=== PATIENT | male | born 1955 | race Two or more races ===

== ENCOUNTER 2021-01-16 15:28 | Emergency (ER) | payer OTHER, SELFPAY | END 2021-01-16 20:28 | disposition left against medical advice (07) | PROVIDERS: Emergency Provider Emergency Medicine; PCP Internal Medicine | DX: R10.9 Unspecified abdominal pain (principal) ==

== ENCOUNTER 2021-01-20 10:11 | Emergency (ER) | payer OTHER, SELFPAY ==
--- NOTE | ~2021-01-20 | CT_ITS ---
EXAMINATION: CT ABDOMEN AND PELVIS WITHOUT CONTRAST CLINICAL INFORMATION: Right flank and right lower quadrant pain. Evaluate for appendicitis or kidney stone. COMPARISON: None TECHNIQUE: Multidetector volumetric imaging was performed from the superior aspect of the liver through the pubic symphysis. Sagittal and coronal reformatted images were obtained on the technologist's workstation. This CT examination was performed using dose optimization techniques as appropriate, variously including the following: *Automated exposure control *Adjustment of mA and/or kV according to patient size (this includes techniques or standardized protocols for targeted exams where dose is matched to indication/reason for exam; i.e. extremities or head) *Use of iterative reconstruction technique DLP: 526 mGy-cm FINDINGS: LUNG BASES: Normal. No pulmonary consolidation or pleural effusion at either lung base. LIVER: The liver has normal size, shape, and attenuation. No evidence of liver mass. GALLBLADDER AND BILIARY TREE: Gallbladder is surgically absent. Common bile duct measures up to 0.8 cm diameter, which can be a normal observation in the setting of prior cholecystectomy. There are no calcified stones within the common duct. PANCREAS: Normal. No edema, pancreatic ductal dilatation or mass. SPLEEN: Normal. ADRENAL GLANDS: Normal. KIDNEYS AND URETERS: The kidneys have normal size and cortical thickness. No solid mass or perinephric fluid collection. No urolithiasis or hydroureteronephrosis. BLADDER: The urinary bladder is nearly completely empty. No bladder calculi. The bladder base is compressed by the prominent prostate gland. BOWEL AND PERITONEUM: Stomach is unremarkable. No dilated loops of bowel. The appendix is normal. Multiple diverticula of the colon. No overt bowel wall thickening or mesenteric fat stranding. No ascites or pneumoperitoneum. ABDOMINAL WALL: There is minimal protrusion of fat into the umbilicus. No significant findings in the abdominal wall. VASCULATURE: Unremarkable. LYMPH NODES: No pathologic sized lymph nodes in the abdomen or pelvis. No inguinal lymphadenopathy. PELVIC VISCERA: Large prostate gland measures approximately 6 x 4.5 x 5 cm. No pelvic free fluid. SKELETAL: Multilevel degenerative arthropathy of the visualized thoracal lumbar spine. Severe facet arthropathy of L5-S1 is associated with grade 1 anterolisthesis of L5 on S1. The right and left gluteus muscles are atrophied and partially replaced by fat. No soft tissue mass. CT/CT abdomen pelvis wo con IMPRESSION: * No acute imaging abnormality. No evidence of renal calculi or hydronephrosis. * The appendix is normal. No inflammatory changes or obstruction along the gastrointestinal tract. There is diverticulosis of the colon without evidence of diverticulitis. * Prostatomegaly is noted.
[2021-01-20 11:29] VITALS: BP 150/80; PULSE 78; RESP 16; TEMP 36.2; O2SAT 98; BMI 32.9
[2021-01-20 12:20] LABS: MANUAL DIFF FLAG NO
[2021-01-20 12:32] LABS: Basophils Percent Auto 0.2 % (0-2); Eosinophils Absolute Auto 0.3 X10*3/uL (0.0-0.4); Eosinophils Percent Auto 3.1 % (0-4); Hemoglobin 14.2 g/dl (14.0-18.0); Imm Gran Abs Auto 0.03 X10*3/uL (0.00-0.03); Imm Gran Pct Auto 0.4 % (0.0-0.4); Lymphocytes Absolute Auto 1.7 X10*3/uL (1.2-4.9); Lymphocytes Percent Auto 21.6 % (20-40); Mean Corpuscular HGB Conc 32.3 g/dl (31.0-36.0); Mean Corpuscular Hemoglobin 29.3 pg (27.0-33.0); Mean Corpuscular Volume 90.9 fL (80-98); Monocytes Absolute Auto 0.5 X10*3/uL (0.1-1.2); Monocytes Percent Auto 6.1 % (2-11); Neutrophils Absolute Auto 5.5 X10*3/uL (2.0-8.3); Neutrophils Percent Auto 68.6 % (45-73); Platelet Count 256 X10*3/uL (160-400); Red Blood Count 4.84 X10*6/uL (4.60-5.80); Red Cell Distribution Width 13.4 % (11.0-16.0); White Blood Count 8.1 X10*3/uL (4.8-10.8)
[2021-01-20 12:37] LABS: Alanine Aminotransferase 28 U/L (0-40); Albumin Level 4.2 g/dL (3.5-5.0); Alkaline Phosphatase 135 U/L (39-117); Anion Gap 11 (12-20); Aspartate Amino Transferase 21 U/L (5-37); Bilirubin Direct 0.2 mg/dL (0.0-0.5); Bilirubin Total 0.4 mg/dL (0.0-1.0); Blood Urea Nitrogen 18 mg/dL (9-16); Calcium 9.3 mg/dL (8.4-10.2); Carbon Dioxide 27 mmol/L (22-29); Chloride 109 mmol/L (96-108); Creatinine Clr Calc Pharmacy 101.3; Estimated Glomerular Filt Rate > 60; Glucose Random 95 mg/dL (60-115); Lipase 28 U/L (8-78); Potassium 4.6 mmol/L (3.3-5.1); Sodium 142 mmol/L (135-145); Total Protein 7.7 g/dL (6.5-8.0)
[2021-01-20 14:02] VITALS: BP 173/87; PULSE 73; RESP 16; TEMP 36.7; O2SAT 98
[2021-01-20 14:44] LABS: Appearance Urine CLEAR; Color Urine YELLOW; Glucose Urine UA NEG (NEG); Leukocyte Esterase Urine NEG (NEG); Nitrite Urine NEG (NEG); PH 5.5 (5.0-8.0); Specific Gravity - Urine >= 1.030 (1.005-1.025); UACC Culture Trigger NO; Urine Blood 1+ (NEG); Urine Ketones NEG (NEG); Urine Protein NEG (NEG-TRACE)
[2021-01-20 14:51] LABS: Mucus Urine 2+ /LPF; Squamous Epithelial Cell Urine TRACE /LPF
[2021-01-20 14:52] LABS: UACC CULT NO
--- NOTE | 2021-01-20 15:25 | ED.ABDPAIN ---
HPI - Abdominal Pain General Chief Complaint: Abdominal Pain Stated Complaint: flank pain Time Seen by Provider: 01/20/21 14:14 Source: patient and family ( at bedside) Mode of arrival: ambulatory Limitations: language barrier (Is [place] Islander-speaking) History of Present Illness HPI narrative: 65-year-old male with a past medical history of hepatitis C, cholecystectomy and colon surgery no other significant past medical history who is [place]er-speaking presenting to the ED with complaints of right flank/right lower quadrant abdominal pain that radiates to his right mid back for the past 1-2 weeks intermittently. He reports the pain improves with rest. It is worse with certain types of movement. He reports the pain comes on suddenly then resolved on its own. 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 He denies any fevers, chills, dizziness, headache, chest pain or shortness of breath, palpitations, dyspnea on exertion, orthopnea, nausea/vomiting/diarrhea/constipation, black or bloody stools, hematuria, abnormal penile discharge, recent trauma, recent falls, urinary/bowel incontinence or retention, history of cancer, IV drug use or any other symptoms complaints or concerns at this time. MD elicited complaint: abdominal pain and flank pain Pertinent past history: other (See above) Onset (ago): week(s) (Intermittent over the past 1-2 weeks) Pain Consistency: intermittent Location: RLQ and R flank Severity: mild Quality: aching Radiation: back Exacerbating factors: movement Relieving factors: rest Associated symptoms: denies other symptoms Related Data Previous Rx's Medication Instructions Recorded acetaminophen 500 mg tablet 1,000 mg PO QID PRN #14 tab 01/20/21 (Tylenol Extra Strength) cyclobenzaprine 10 mg tablet 10 mg PO Q8H PRN #14 tab 01/20/21 ibuprofen 800 mg tablet 800 mg PO Q8H PRN #14 tab 01/20/21 lidocaine HCl 4 % topical cream 1 appl TOPICAL BID PRN #120 g 01/20/21 (Aspercreme (lidocaine HCl)) Allergies Allergy/AdvReac Type Severity Reaction Status Date / Time No Known Allergies Allergy Verified 01/20/21 11:31 Review of Systems Review of Systems Constitutional : No trauma, No Weight loss, No Fever, No Chills, ENT/Mouth : No Hearing loss, No Ear Pain, No Nasal Congestion, No Sinus Pain, No Hoarseness, No sore throat, No Rhinorrhea, No Swallowing Difficulty Cardiovascular : No Chest Pain, No SOB Respiratory : No Cough, No Dyspnea Gastrointestinal : + abd pain/flank pain radiating to right mid back, No Nausea, No Vomiting, No Diarrhea, No Hematochezia, No Melena Genitourinary : No Dysuria, No Urinary Frequency, No Hematuria, No Urinary or Bowel Incontinence/retention Musculoskeletal : + Back pain, No neck pain, No joint stiffness, No joint swelling Skin : No Skin Lesions, No rash or signs of infection Neuro : No Weakness, No radiation, No Numbness, No Paresthesias, No headache, no loss of bowel or bladder incontinence, no saddle anesthesia, Focal weakness, No radiation Denies history of IV drug usage. Yes all other systems are reviewed and are negative Physical Exam Vital Signs: Vital Signs: Last Vital Signs Temp 98.0 F 01/20/21 14:02 Pulse 73 01/20/21 14:02 Resp 16 01/20/21 14:02 BP 173/87 H 01/20/21 14:02 Pulse Ox 98 01/20/21 14:02 Body Mass Index 32.9 vital signs have been reviewed as normal and appeared to be correct. Blood pressure hypertensive 150/80. Heart rate normal. Respiration rate normal. Temperature normal. Oxygen saturation normal. Appearance: Alert. Oriented X3. No acute distress. Head: Normal external exam. Normocephalic. Eyes: PERRLA. EOMI. Conjunctiva and sclera normal. Eyelids normal. ENT: Pharynx normal. Uvula midline. Moist mucous membranes. Neck: Normal inspection. Neck supple. FROM. No adenopathy. No meningeal signs. CVS: Normal heart rate and rhythm. Heart sound normal. No murmurs noted. Pulses normal throughout. Respiratory: No respiratory distress. Painless inspiration. Breath sounds normal. No wheezes/rales/rhonchi noted. Chest nontender. No accessory muscle usage noted or decreased air movement noted. Abdomen: Soft and mild tenderness up patient to right flank/right lower quadrant. Nondistended. No guarding. No rigidity. Bowel sounds normal in all 4 quadrants. No distention noted. No organomegaly noted. No visible injury noted. No rebound tenderness. Negative Rovsing sign. Negative obturator's sign. Negative psoas sign. Negative Milligan sign. Back: No CVA tenderness. Full range of motion noted. Skin: Skin warm and dry. Normal skin color. Normal skin turgor. No rashes/lesions/lacerations noted. Extremities: Extremities exhibit normal range of motion. Extremities nontender. Neuro: Oriented X 3. No motor deficit. No sensory deficit. Reflexes normal. Normal steady gait. Course Course Course Narrative: 14:25pm - 65-year-old male with a past medical history of hepatitis C, cholecystectomy and colon surgery no other significant past medical history who is [place]er-speaking presenting to the ED with complaints of right flank/right lower quadrant abdominal pain that radiates to his right mid back for the past 1-2 weeks intermittently. He reports the pain improves with rest. It is worse with certain types of movement. He reports the pain comes on suddenly then resolved on its own. 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 Plan: Labs obtained in triage and patient's labs are reviewed he is noted to have an alkaline phosphate of 135 otherwise all other labs are within normal limits. Therefore at this time will obtain a UA and a CT scan abdomen pelvis without IV contrast to evaluate for possible appendicitis versus kidney stones and re-evaluate. Patient declining anything for pain at this time. Reevaluation(s) Reevaluation #1: - CT scan abdomen pelvis negative for appendicitis or kidney stones or hydronephrosis. Patient is noted to have diverticulitis of the colon without evidence of diverticulitis. He has an enlarged prostate otherwise no other acute processes. 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 Will DC home with symptomatic treatment instructions return if any new or worsening symptoms follow-up with primary care provider. Patient understands agrees with this plan. Time: 15:48 MDM - Abdominal Pain Medical Records Attestation: I reviewed the patient's medical records. Lab Data Attestation: I reviewed the patient's lab results. Result diagrams: 01/20/21 12:15 01/20/21 12:15 Labs: Lab Results 01/20/21 01/20/21 01/20/21 Range/Units 12:15 12:15 14:39 WBC 8.1 (4.8-10.8) X10*3/uL RBC 4.84 (4.60-5.80) X10*6/uL Hgb 14.2 (14.0-18.0) g/dl Hct 44.0 (42-52) % MCV 90.9 (80-98) fL MCH 29.3 (27.0-33.0) pg MCHC 32.3 (31.0-36.0) g/dl RDW 13.4 (11.0-16.0) % Plt Count 256 (160-400) X10*3/uL MPV 11.0 (9.4-12.4) fL Immature Gran % (Auto) 0.4 (0.0-0.4) % Neut % (Auto) 68.6 (45-73) % Lymph % (Auto) 21.6 (20-40) % [place] % (Auto) 6.1 (2-11) % Eos % (Auto) 3.1 (0-4) % Baso % (Auto) 0.2 (0-2) % Lymph # (Auto) 1.7 (1.2-4.9) X10*3/uL [place] # (Auto) 0.5 (0.1-1.2) X10*3/uL Eos # (Auto) 0.3 (0.0-0.4) X10*3/uL Baso # (Auto) 0.0 (0.0-0.2) X10*3/uL Abs Immat Gran (auto) 0.03 (0.00-0.03) X10*3/uL Absolute Neuts (auto) 5.5 (2.0-8.3) X10*3/uL Absolute Nucleated RBC 0.000 (0.0-0.012) X10*3/uL Nucleated RBC % (auto) 0.0 (0.0-0.2) /100WBC Sodium 142 (135-145) mmol/L Potassium 4.6 (3.3-5.1) mmol/L Chloride 109 H (96-108) mmol/L Carbon Dioxide 27 (22-29) mmol/L Anion Gap 11 L (12-20) BUN 18 H (9-16) mg/dL Creatinine 0.69 (0.5-1.4) mg/dL Estim Creat Clear Calc 101.3 Estimated GFR > 60 Random Glucose 95 (60-115) mg/dL Calcium 9.3 (8.4-10.2) mg/dL Total Bilirubin 0.4 (0.0-1.0) mg/dL Direct Bilirubin 0.2 (0.0-0.5) mg/dL AST 21 (5-37) U/L ALT 28 (0-40) U/L Alkaline Phosphatase 135 H (39-117) U/L Total Protein 7.7 (6.5-8.0) g/dL Albumin 4.2 (3.5-5.0) g/dL Lipase 28 (8-78) U/L Urine Color YELLOW Urine Appearance CLEAR Urine pH 5.5 (5.0-8.0) Ur Specific [place] >= 1.030 H (1.005-1.025) Urine Protein NEG (NEG-TRACE) MG/DL Urine Glucose (UA) NEG (NEG) MG/DL Urine Ketones NEG (NEG) MG/DL Urine Blood 1+ H (NEG) Urine Nitrite NEG (NEG) Ur Leukocyte Esterase NEG (NEG) Urine RBC 1-4 (0) /HPF Urine WBC 1-4 (0-4) /HPF Ur Squamous Epith Cells TRACE /LPF Urine Bacteria NONE /LPF Urine Mucus 2+ /LPF Imaging Data CT scan abdomen pelvis with out IV contrast: Attestation: I personally reviewed and interpreted this imaging study as follows: Radiologist's impression: FINDINGS: LUNG BASES: Normal. No pulmonary consolidation or pleural effusion at either lung base.? LIVER: The liver has normal size, shape, and attenuation.? No evidence of liver mass. GALLBLADDER AND BILIARY TREE: Gallbladder is surgically absent. Common bile duct measures up to 0.8 cm diameter, which can be a normal observation in the setting of prior cholecystectomy. There are no calcified stones within the common duct.? PANCREAS: Normal. No edema, pancreatic ductal dilatation or mass.? SPLEEN: Normal.? ADRENAL GLANDS: Normal.? KIDNEYS AND URETERS: The kidneys have normal size and cortical thickness. No solid mass or perinephric fluid collection. No urolithiasis or hydroureteronephrosis. BLADDER:? The urinary bladder is nearly completely empty. No bladder calculi. The bladder base is compressed by the prominent prostate gland. BOWEL AND PERITONEUM: Stomach is unremarkable. No dilated loops of bowel. The appendix is normal. Multiple diverticula of the colon. No overt bowel wall thickening or mesenteric fat stranding. No ascites or pneumoperitoneum. ABDOMINAL WALL: There is minimal protrusion of fat into the umbilicus. No significant findings in the abdominal wall.? VASCULATURE: Unremarkable. LYMPH NODES: No pathologic sized lymph nodes in the abdomen or pelvis. No inguinal lymphadenopathy. PELVIC VISCERA: Large prostate gland measures approximately 6 x 4.5 x 5 cm. No pelvic free fluid. SKELETAL: Multilevel degenerative arthropathy of the visualized thoracal lumbar spine. Severe facet arthropathy of L5-S1 is associated with grade 1 anterolisthesis of L5 on S1. The right and left gluteus muscles are atrophied and partially replaced by fat. No soft tissue mass. CT/CT abdomen pelvis wo con IMPRESSION: *? No acute imaging abnormality. No evidence of renal calculi or hydronephrosis. *? The appendix is normal. No inflammatory changes or obstruction along the gastrointestinal tract. There is diverticulosis of the colon without evidence of diverticulitis. *? Prostatomegaly is noted. ? Discharge Plan Discharge Clinical Impression: Muscle spasm of back, Spasm of abdominal muscles Patient Disposition: Home, Self-Care Instructions: Muscle Spasm (ED) Prescriptions: New lidocaine HCl [Aspercreme (lidocaine HCl)] 4 % cream 1 appl topical BID PRN (Reason: pain) Qty: 120 RF: 0 cyclobenzaprine 10 mg tablet 10 mg PO Q8H PRN (Reason: Muscle spasm) Qty: 14 RF: 0 ibuprofen 800 mg tablet 800 mg PO Q8H PRN (Reason: pain) Qty: 14 RF: 0 acetaminophen [Tylenol Extra Strength] 500 mg tablet 1,000 mg PO QID PRN (Reason: fever or pain) Qty: 14 RF: 0 Referrals: Javier Malloy PA-C [Primary Care Provider] - 2 days Stand Alone Forms: Work/School Release Print Language: [place] [facility] Past Medical History Attestation statement: The following information was validated with the patient. Social History Social History Smoked in Last 30 Days: No Use of substances other than those prescribed or required for medical reasons: No Advance Directives: No
== END 2021-01-20 15:59 | disposition home or self-care (01) ==
PROVIDERS: Emergency Provider Emergency Medicine Emergency Medical Services; PCP Physician Assistant
DX: M62.830 Muscle spasm of back (principal); M62.838 Other muscle spasm; M47.817 Spondylosis without myelopathy or radiculopathy, lumbosacral region
CPT/HCPCS: 36415; 74176; 80048; 80076; 81001; 83690; 85025; 99284

== ENCOUNTER 2021-05-15 15:38 | Outpatient (REF) | payer OTHER, SELFPAY ==
[2021-05-15 16:55] LABS: Alanine Aminotransferase 18 U/L (0-40); Alkaline Phosphatase 137 U/L (39-117); Anion Gap 10 (12-20); Aspartate Amino Transferase 20 U/L (5-37); Bilirubin Total 0.4 mg/dL (0.0-1.0); Blood Urea Nitrogen 12 mg/dL (9-16); Calcium 8.8 mg/dL (8.4-10.2); Carbon Dioxide 28 mmol/L (22-29); Chloride 110 mmol/L (96-108); Cholesterol 162 mg/dL; Estimated Glomerular Filt Rate > 60; Glucose Fasting 88 mg/dL (60-99); HDL Cholesterol 48 mg/dL; LDL Cholesterol Calculated 90 mg/dl; Sodium 144 mmol/L (135-145); Total Protein 7.4 g/dL (6.5-8.0); Triglycerides 123 mg/dL
[2021-05-15 17:02] LABS: Estimated Average Glucose 128 mg/dL; Hemoglobin A1c % 6.1 %
[2021-05-15 17:16] LABS: Prostate Specific Antigen Scr 3.82 ng/mL (<0.05-4.0)
[2021-05-16 04:23] LABS: HBc Num1 0.09 S/CO (0.00-0.79); Hepatitis B Core Antibody Nonreactive (Nonreactive); ~Hepatitis B Surface Antibody NONREACTIVE (Nonreactive)
[2021-05-16 04:27] LABS: HBsAGNum1 0.21 S/CO (0.00-0.99); Hepatitis B Surface Antigen Negative (Negative); ~HepC Num1 0.13 S/CO (0.00-0.79); ~Hepatitis C Antibody Nonreactive (Nonreactive)
[2021-05-20 07:56] LABS: HCV RNA PCR Qn <1.18 log IU/mL; HCV RNA PCR Qn <15 IU/mL
== END 2021-05-15 15:39 | disposition home or self-care (01) ==
LOC: HO.LAB 15:38
PROVIDERS: PCP Physician Assistant; Visit Provider Physician Assistant
DX: B19.20 Unspecified viral hepatitis C without hepatic coma (principal); Z13.1 Encounter for screening for diabetes mellitus; Z11.3 Encounter for screening for infections with a predominantly sexual mode of transmission; Z12.5 Encounter for screening for malignant neoplasm of prostate; Z13.29 Encounter for screening for other suspected endocrine disorder; Z13.220 Encounter for screening for lipoid disorders
CPT/HCPCS: 36415; 80053; 80061; 83036; 84153; 84443; 86704; 86706; 86803; 87340; 87522; 87902

== ENCOUNTER 2021-08-20 16:42 | Outpatient (REF) | payer OTHER, SELFPAY ==
--- NOTE | ~2021-08-20 | XR_ITS ---
EXAMINATION: XR LUMBOSACRAL SPINE CLINICAL INFORMATION: Low back pain. COMPARISON: None TECHNIQUE: Three views of the lumbosacral spine. FINDINGS: There is sacralization of the L5 vertebra with partial ankylosis of a prominent right-sided L5 transverse process. No acute fractures identified. There is a mild grade 1 spondylolisthesis L4-L5 with bilateral facet arthropathy. There is disc space narrowing seen throughout the lumbar spine. Marginal osteophytes are seen at multiple levels with ankylosis of L1-L2. No acute fractures identified. No definite spondylolysis is seen. XR/XR lumbar spine 2-3V IMPRESSION: No acute fracture or spondylolysis of the lumbar spine. Multilevel degenerative disc disease as described. Sacralization of L5 with prominent right transverse process articulating with the right iliac crest and superior sacroiliac joint. 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
== END 2021-08-20 16:43 | disposition home or self-care (01) ==
LOC: HO.XRAY 16:42
PROVIDERS: PCP Physician Assistant; Visit Provider Physician Assistant
DX: M54.50 Low back pain, unspecified (principal)
CPT/HCPCS: 72100

== ENCOUNTER 2021-09-04 15:00 | Outpatient (RCR) | payer OTHER, SELFPAY ==
[2021-08-14 15:08] VITALS: BP 135/85; PULSE 82
--- NOTE | 2021-08-14 16:49 | MHC.PT.EP ---
[facility] [place] Office [place] Office [place] Office [address] [phone] F: [phone] F: [phone] F: [phone] F: [phone] Physical Therapy Plan of Care Date of Evaluation: Date of Surgery: Diagnosis: intervertebral disc disorder. 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 Pt is deemed an appropriate candidate to receive skilled PT in order to address his physical limitations to improve his functional ability. Frequency and Duration: The patient will be seen 2 x/ wk x 5 wks. Short Term Goals: Initiate HEP. Pt will report < 4/10 pain at the end of a work day; initial: 6/10. Care Home Goals: I with HEP. Pt will be able to walk long distances with managed Sx. Pt will report pain prevents me from standing > 1 hour ; initial: I avoid standing because it increases my pain right away. Improve core strength to > good. Treatment Plan: Modalities to reduce pain, spasms and effusion. Manual therapy to restore motion and function. Therapeutic exercise to improve strength and flexibility. Neuromuscular re-education for posture and balance. Therapeutic activities to return to functional activities of daily living. Electronically signed by: Matthew Alejandra PT. Please sign and return to therapist. Thank you for your referral.
--- NOTE | 2021-09-26 14:52 | MHC.PT.DC ---
[facility] [place] Office [place] Office [place] Office [address] Evangelista [address] [phone] F: [phone] F: [phone] F: [phone] F: [phone] Physical Therapy Discharge Report Diagnosis: intervertebral disc disorder. Date of Surgery: Date of Evaluation: 08/14/21 Date of Discharge: 09/26/21 Treatments to Date: 5 Cancellations to Date: No Shows to Date: 3 Discharge Status: Visit Non-compliance Discharge Summary: Pt had made improvement though logged 3 no-show appointments and is DC'd per attendance policy. Electronically signed by: Matthew Alejandra PT. Please sign and return to therapist. Thank you for your referral.
== END 2021-09-26 14:51 | disposition home or self-care (01) ==
LOC: HO.PTCHIC 15:00
PROVIDERS: PCP Physician Assistant; Visit Provider Physician Assistant
DX: M54.50 Low back pain, unspecified (principal); M51.9 Unspecified thoracic, thoracolumbar and lumbosacral intervertebral disc disorder
CPT/HCPCS: 97014; 97110; 97161

== ENCOUNTER 2021-09-07 09:36 | Outpatient (REF) | payer OTHER, SELFPAY ==
[2021-09-07 11:22] LABS: Estimated Average Glucose 126 mg/dL
[2021-09-07 11:41] LABS: Alanine Aminotransferase 43 U/L (0-40); Albumin Level 3.8 g/dL (3.5-5.0); Alkaline Phosphatase 151 U/L (39-117); Anion Gap 13 (12-20); Aspartate Amino Transferase 35 U/L (5-37); Bilirubin Total 0.4 mg/dL (0.0-1.0); Blood Urea Nitrogen 16 mg/dL (9-16); Calcium 8.9 mg/dL (8.4-10.2); Carbon Dioxide 22 mmol/L (22-29); Chloride 110 mmol/L (96-108); Estimated Glomerular Filt Rate > 60; Glucose Fasting 92 mg/dL (60-99); Potassium 5.2 mmol/L (3.3-5.1); Sodium 140 mmol/L (135-145); Total Protein 7.5 g/dL (6.5-8.0)
[2021-09-07 12:03] LABS: TSH reflex Free T4 5.29 uIU/mL (0.32-4.0)
[2021-09-07 12:52] LABS: Free T4 (Free Thyroxine) 0.76 ng/dL (0.71-1.85)
[2021-09-10 15:11] LABS: HCV RNA PCR Qn <1.18 NOT DETECTED Log IU/mL (NOT DETECTED); HCV RNA PCR Qn <15 NOT DETECTED IU/mL (NOT DETECTED)
== END 2021-09-07 09:37 | disposition home or self-care (01) ==
LOC: HO.LAB 09:36
PROVIDERS: PCP Physician Assistant; Visit Provider Physician Assistant
DX: R73.09 Other abnormal glucose (principal)
CPT/HCPCS: 36415; 80053; 83036; 84439; 84443; 87522; 87902

== ENCOUNTER 2022-01-25 10:44 | Outpatient (REF) | payer OTHER, SELFPAY ==
[2022-01-25 11:24] LABS: Hematocrit 40.9 % (42.0-52.0); Hemoglobin 13.3 g/dl (14.0-18.0); Mean Corpuscular HGB Conc 32.5 g/dl (31.0-36.0); Mean Corpuscular Hemoglobin 28.9 pg (27.0-33.0); Mean Corpuscular Volume 88.9 fL (80.0-98.0); Mean Platelet Volume 11.2 fL (9.4-12.4); Platelet Count 272 X10*3/uL (160-400); Red Cell Distribution Width 13.8 % (11.0-16.0); White Blood Count 6.1 X10*3/uL (4.8-10.8)
[2022-01-25 11:42] LABS: Anion Gap 13 (12-20); Blood Urea Nitrogen 16 mg/dL (9-16); Calcium 8.6 mg/dL (8.4-10.2); Carbon Dioxide 24 mmol/L (22-29); Chloride 109 mmol/L (96-108); Estimated Glomerular Filt Rate > 60; Glucose Random 102 mg/dL (60-115); Potassium 3.8 mmol/L (3.3-5.1); Sodium 142 mmol/L (135-145)
== END 2022-01-25 10:45 | disposition home or self-care (01) ==
LOC: HO.LAB 10:44
PROVIDERS: PCP Physician Assistant; Visit Provider Nurse Practitioner Family
DX: R26.89 Other abnormalities of gait and mobility (principal)
CPT/HCPCS: 36415; 80048; 85027

== ENCOUNTER 2022-02-21 16:44 | Outpatient (REF) | payer OTHER, SELFPAY ==
[2022-02-21 17:47] LABS: Iron 66 mcg/dL (45-160); Percent Iron Saturation 20 % (15-50); Total Iron Binding Capacity 330 mcg/dL (228-428); Unsaturated Iron Binding 264 ug/dL
[2022-02-21 18:03] LABS: TSH reflex Free T4 4.81 uIU/mL (0.32-4.0)
== END 2022-02-21 16:45 | disposition home or self-care (01) ==
LOC: HO.LAB 16:44
PROVIDERS: PCP Physician Assistant; Visit Provider Nurse Practitioner Family
DX: B19.20 Unspecified viral hepatitis C without hepatic coma (principal); R79.89 Other specified abnormal findings of blood chemistry; D64.9 Anemia, unspecified
CPT/HCPCS: 36415; 83540; 84439; 84443; 87522; 87902

== ENCOUNTER 2023-09-17 14:58 | Outpatient (AMB) | payer MEDICAID, SELFPAY ==
--- NOTE | 2023-09-17 15:01 | MHC.PC.OV ---
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 Accompanied by: Daughter Allergies No Known Allergies Allergy (Verified 09/17/23 15:14) Medication List - Last Reconciled 09/17/23 by Javier Malloy PA-C acetaminophen (Tylenol Extra Strength) 1,000 mg (2 x 500 mg) PO QID PRN ibuprofen 800 mg PO Q8H levothyroxine 25 mcg PO DAILY 90 days lidocaine HCl 4% (Aspercreme (lidocaine HCl)) 1 appl topical BID PRN Tobacco use date assessed: 09/17/23 Fall risk assessment: No Falls in past year Last assessed Fall Risk: 09/17/23 Dental Screening Dental Screen Date: 09/17/23 Did you have a dental visit in the last 12 months?: Yes Did you have a dental problem in the last 6 months where you did not have access to dental care?: No Was dental information given to patient?: Patient has dentist HPI F/U Low back pain HPI Details Patient is a 67 year male here today for a follow-up visit Today presrent with his daughter whom help with interpretation. ? Patient has a past medical history significant s/o colectomy ( 2008) chronic lumbar spine pain , ? TB in his liver, Concerns-- Also having alot of lumbar back pain , has been on bleed able to see a chiropractor due to insurance not covering. REport having intermittent sharp right upper quadrant abdominal pain. Reports having bilateral plantar deep skin lesions that he would like evaluated by a graphic specialist. . Elevated blood pressure readings: Was found to have elevated blood pressure readings at last visit, repeat blood pressures continue to be elevated. Now willing to start low-dose blood pressure medication. PLAN: Will start low-dose lisinopril and supply patient with a paper Rx for blood pressure cuff to do home blood pressure monitoring. [facility] Medical History (Updated 09/21/23 @ 07:41 by Javier Malloy PA-C) Hepatitis C Impaired glucose metabolism Social History Housing: House Alcohol intake: former Year quit: 1999 Patient Tobacco Use Status: Never used Tobacco Tobacco use type: Cigarette e-Cigarette/Vaping Use: Never Used Second Hand Smoke Exposure: No service: No Current occupational status: employed Current occupation: [employer] Cognitive needs: No Hearing needs: No Vision needs: Yes (wear glasses) Questionnaire PHQ-9 Over the last 2 weeks, how often have you been bothered by any of the following problems? 1. Little interest or pleasure in doing things: not at all 2. Feeling down, depressed, or hopeless: not at all 3. Trouble falling or staying asleep, or sleeping too much: not at all 4. Feeling tired or having little energy: not at all 5. Poor appetite or overeating: not at all 6. Feeling bad about yourself - or that you are a failure or have let yourself or your family down: not at all 7. Trouble concentrating on things, such as reading the newspaper or watching television: not at all 8. Moving or speaking so slowly that other people could have noticed. Or the opposite - being so fidgety or restless that you have been moving around a lot more than usual: not at all 9. Thoughts that you would be better off or of hurting yourself in some way: not at all Total score: 0 Depression Screening Interpretation: Negative Depression Screening Done: Yes 91284 - PHQ-9 Billing: Yes Source: Developed by Drs. Collin Rosen, Tenisha Mcconnell, Blade Atkinson and colleagues, with an educational josemanuel from [employer]. Thrive Questionnaire Date Thrive assessed: 09/17/23 I am a: Patient What is your living situation today?: I have a steady place to live Within the past 12 months, did the food you bought not last and you didn't have the money to get more?: Never true Within the past 12 months, did you worry whether your food would run out before you got money to buy more?: Never true Do you have trouble paying for medicines?: No Do you have trouble getting transportation to medical appointments?: No Do you have trouble paying your heating and electricity bill?: No Do you have trouble taking care of your child, family member or friend?: No Do you have trouble with day-to-day activities such as bathing, preparing meals, shopping, managing finances, etc.?: No Are you currently unemployed and looking for a job?: No Are you interested in more education?: No Please select the resources that you would like help with: None Currently or been in a relationship where the following occur: no concerns reported THRIVE Score: 0 AUDIT C Alcohol Use Questionnaire (AUDIT-C) 1. How often do you have a drink containing alcohol?: Never 3. How often do you have six or more drinks on one occasion?: Never Total Score: 0 Score Reviewed/Action Taken: No MARS-7 AMB Questionnaire MARS-7 Date MARS - 7 assessed: 09/17/23 Feeling nervous, anxious, or on edge: 0 = Not at all Not being able to stop or control worryin = Not at all Worrying too much about different things: 0 = Not at all Trouble relaxin = Not at all Being so restless that it is hard to sit still: 0 = Not at all Becoming easily annoyed or irritable: 0 = Not at all Feeling afraid as if something awful might happen: 0 = Not at all Total MARS-7 score (0-4 normal; 5-9 mild; 10-14 moderate; 15-21 severe): 0 Source: Developed by Drs. Collin Rosen, Tenisha Mcconnell, Blade Atkinson and colleagues, with an educational josemanuel from [employer]. MARS-7 Assessment Billing MARS-7 Assessment Tool: MARS-7 Assessment 07406 Review of Systems Const Denies headache(s) Eyes Denies loss of vision ENT Denies vertigo, Denies dizziness, Denies headache(s) and Denies sore throat Card Denies chest pain, Denies leg edema and Denies lightheadedness Resp Denies cough, Denies hemoptysis and Denies wheezing GI Denies abdominal pain, Denies melena, Denies constipation, Denies diarrhea and Denies vomiting Denies dysuria, Denies urinary frequency and Denies urinary urgency Musc Denies arthralgias, Denies joint swelling, Denies numbness and Denies tingling Neuro Denies Abnormal speech present, Denies behavioral changes, Denies vertigo, Denies dizziness, Denies headache(s), Denies loss of vision, Denies memory loss, Denies numbness and Denies tingling Psych Denies anxiety, Denies behavioral changes, Denies depression, Denies memory loss and Denies panic attacks Chris/Lymph Denies easy bleeding and Denies easy bruising Aller/Immun Denies wheezing Physical exam (Primary Care) Vital Signs: Last Vital Signs Pulse 80 09/17/23 15:02 BP 144/76 H 09/17/23 15:02 Pulse Ox 96 09/17/23 15:02 Oxygen Delivery Method Room Air 09/17/23 15:02 BMI result Body Mass Index 30.2 Tobacco/Smoking Status: Tobacco use Status Tobacco use date assessed 09/17/23 09/17/23 15:07 Patient Tobacco Use Status Never used Tobacco 09/17/23 15:01 Tobacco use type Cigarette 09/17/23 15:01 e-Cigarette/Vaping Use Never Used 09/17/23 15:01 PHQ-9: PHQ-9 Score PHQ-9: Total score 0 09/17/23 15:18 Depression Screening Interpretation: Negative Thrive Assessment: Date of Thrive Assessment Date Thrive assessed 09/17/23 09/17/23 15:07 Currently or been in a relationship where the following occur: no concerns reported Const General: healthy appearing, no acute distress, alert and awake Nutritional Appearance: well nourished Orientation/consciousness: oriented to person, oriented to place and oriented to time HENMT Ears: TM's normal bilaterally General nose exam: Normal nasal mucous membranes and turbinates present Eyes Conjunctivae: conjunctivae normal Sclerae: sclerae normal Pupils: Equal, round and reactive pupils present Neck Neck: Yes no lymphadenopathy and Yes no JVD Thyroid: Thyroid normal Carotids: no bruits Resp Effort & Inspection: normal respiratory effort and not tachypneic Auscultation: no crackles, no rales, no rhonchi and no wheezes Cardio Rate: regular rate Rhythm: regular rhythm Heart sounds: no murmurs and normal S1 and S2 GI Palpation (GI): Soft to palpation, nontender, no hepatomegaly and no splenomegaly Auscultation: normal bowel sounds Skin General skin exam: no rashes or lesions noted and dry skin Neuro General: oriented to person, oriented to place and oriented to time Cranial nerves: Yes Equal, round and reactive pupils present Speech: No Abnormal speech present Gait exam (Neuro): Normal gait present Motor exam (neuro): no tremor noted Extrem Right upper extremity: full ROM Left upper extremity: full ROM Right lower extremity: full ROM; no edema Left lower extremity: full ROM; no edema Ankle/foot/toe images: 1. PALPABLE CALLUS LIKE FORMATIONS NOTED IN THE AREA OUTLINED. Psych Mental Status: mental status grossly normal Speech and movement: Normal speech and movement present Affect: normal affect Attitude: cooperative Thought process: Normal thought process present Assessment and Plan Assessment & Plan (1) Impaired glucose metabolism: Code(s): R73.09 - Other abnormal glucose Plan: Most recent A1c is 6.1. Offered low-dose metformin though declines my offers and will work on lifestyle to reduce his carbohydrates in his diet (2) RUQ abdominal pain: Code(s): R10.11 - Right upper quadrant pain Plan: Has a history of hepatitis C that was treated successfully. Has been having right upper quadrant abdominal pain worse with manipulating his torso. Will send for ultrasound of the right upper quadrant evaluate for any advancing liver cirrhosis. (3) HTN (hypertension): Code(s): I10 - Essential (primary) hypertension Qualifiers: Hypertension type: primary hypertension Qualified Code(s): I10 - Essential (primary) hypertension Plan: Blood pressure elevated today in office and has been at previous occasions. Now willing to start low-dose blood pressure medication. Advised to monitor blood pressure at home with goal blood pressure to be below 140/90 (4) Pruritus: Code(s): L29.9 - Pruritus, unspecified (5) Lumbar spine pain: Code(s): M54.50 - Low back pain, unspecified Plan: Continues to have lower lumbar spine pain that he uses NSAIDs and topical lidocaine for with decent affect. Contains used to work full-time, he has not interested in physical therapy at this time. (6) Elevated TSH: Code(s): R79.89 - Other specified abnormal findings of blood chemistry Plan: Has a history of elevated TSH. Will recheck TSH and if elevated will consider starting low-dose levothyroxine. (7) Callus of foot: Code(s): L84 - Corns and callosities Plan: Does have palpable callus formations over bilateral feet. Advised on shoe inserts to help this should be weight. Will refer to Podiatry for evaluation Orders: Orders TSH reflex Free T4 09/19/23 R79.89 - Other specified abnormal findings of blood chemistry Prostate Specific Antigen Scr 09/19/23 I10 - Essential (primary) hypertension, Z12.5 - Encounter for screening for malignant neoplasm of prostate Complete Blood Count no Diff 09/19/23 R73.09 - Other abnormal glucose Comprehensive [place]. Panel Fast 09/19/23 R73.09 - Other abnormal glucose Hemoglobin A1c 09/19/23 R73.09 - Other abnormal glucose US abdomen limited 09/17/23 R10.11 - Right upper quadrant pain Referrals Podiatry Referral L84 - Corns and callosities Medications: New lisinopril 5 mg PO DAILY 90 tabs 1RF 90 days I10 - Essential (primary) hypertension lidocaine 5% leave on most painful area for up to 12 hrs 1 patch topical DAILY 30 ea 3RF 30 days M47.16 - Other spondylosis with myelopathy, lumbar region miscellaneous medical supply (Blood Pressure Cuff) Need for automated blood pressure cuff, testing once a day as needed 1 ea 0RF I10 - Essential (primary) hypertension cetirizine 10 mg PO DAILY PRN 90 tabs 1RF allergy symptoms 90 days L29.9 - Pruritus, unspecified pantoprazole 20 mg PO DAILY 30 tabs 3RF 30 days R10.11 - Right upper quadrant pain Refilled acetaminophen (Tylenol Extra Strength) 1,000 mg (2 x 500 mg) PO QID PRN 14 tabs 0RF fever or pain M47.816 - Spondylosis without myelopathy or radiculopathy, lumbar region ibuprofen 800 mg PO Q8H 90 tabs 0RF for pain M47.816 - Spondylosis without myelopathy or radiculopathy, lumbar region Discontinued lidocaine HCl 4% (Aspercreme (lidocaine HCl)) Discontinued Reason: Doctor's Order 1 appl topical BID PRN 120 grams 0RF pain Patient Instructions: Goal: Blood pressure to be below 140/90 Barriers: Adherence to healthy eating habits and physical activity Coding Level of Care Code Est Pt Level 4 (97452) Diagnoses Impaired glucose metabolism R73.09 RUQ abdominal pain R10.11 Primary hypertension I10 Hypertension type: primary hypertension Pruritus L29.9 Lumbar spine pain M54.50 Elevated TSH R79.89 Callus of foot L84 Additional Codes MARS-7 Assessment Billing - MARS-7 Assessment Tool: MARS-7 Assessment 43298 ([id number])
[2023-09-17 15:02] VITALS: BP 144/76; PULSE 80; O2SAT 96; BMI 30.2
== END 2023-09-17 16:36 | disposition home or self-care (01) ==
PROVIDERS: PCP Physician Assistant; Visit Provider Physician Assistant
DX: R73.09 Other abnormal glucose (principal); R10.11 Right upper quadrant pain; I10 Essential (primary) hypertension; L29.9 Pruritus, unspecified; M54.50 Low back pain, unspecified; Z86.11 Personal history of tuberculosis; R79.89 Other specified abnormal findings of blood chemistry; L84 Corns and callosities
CPT/HCPCS: 99214

== ENCOUNTER 2023-09-19 08:42 | Outpatient (REF) | payer MEDICAID, SELFPAY ==
[2023-09-19 09:35] LABS: Hematocrit 40.8 % (42.0-52.0); Hemoglobin 13.4 g/dl (14.0-18.0); Mean Corpuscular HGB Conc 32.8 g/dl (31.0-36.0); Mean Corpuscular Hemoglobin 29.9 pg (27.0-33.0); Mean Corpuscular Volume 91.1 fL (80.0-98.0); Mean Platelet Volume 11.3 fL (9.4-12.4); Platelet Count 226 X10*3/uL (160-400); Red Blood Count 4.48 X10*6/uL (4.60-5.80); Red Cell Distribution Width 13.8 % (11.0-16.0); White Blood Count 5.8 X10*3/uL (4.8-10.8)
[2023-09-19 10:01] LABS: Estimated Average Glucose 123 mg/dL; Hemoglobin A1c % 5.9 % (<6.0)
[2023-09-19 10:15] LABS: Alanine Aminotransferase 31 U/L (0-40); Albumin Level 3.8 g/dL (3.5-5.0); Alkaline Phosphatase 141 U/L (39-117); Anion Gap 11 (12-20); Aspartate Amino Transferase 26 U/L (5-37); Bilirubin Total 0.3 mg/dL (0.0-1.0); Blood Urea Nitrogen 14 mg/dL (9-16); Calcium 8.4 mg/dL (8.4-10.2); Carbon Dioxide 22 mmol/L (22-29); Chloride 113 mmol/L (96-108); Estimated Glomerular Filt Rate > 60; Glucose Fasting 91 mg/dL (60-99); Potassium 3.7 mmol/L (3.3-5.1); Sodium 142 mmol/L (135-145); Total Protein 7.1 g/dL (6.5-8.0)
[2023-09-19 10:23] LABS: Prostate Specific Antigen Scr 3.09 ng/mL (<0.05-4.0)
[2023-09-19 10:31] LABS: TSH reflex Free T4 4.37 uIU/mL (0.32-4.0)
[2023-09-19 12:10] LABS: Free T4 (Free Thyroxine) 0.77 ng/dL (0.71-1.85)
== END 2023-09-19 08:43 | disposition home or self-care (01) ==
LOC: HO.LAB 08:42
PROVIDERS: PCP Physician Assistant; Visit Provider Physician Assistant
DX: R79.89 Other specified abnormal findings of blood chemistry (principal); I10 Essential (primary) hypertension; R73.09 Other abnormal glucose; Z12.5 Encounter for screening for malignant neoplasm of prostate
CPT/HCPCS: 36415; 80053; 83036; 84153; 84439; 84443; 85027

== ENCOUNTER 2023-09-25 08:50 | Outpatient (REF) | payer MEDICAID, SELFPAY ==
--- NOTE | ~2023-09-25 | US_ITS ---
EXAMINATION: US ABDOMEN LIMITED CLINICAL INFORMATION: Right upper quadrant pain. History of hepatitis C that was treated. COMPARISON: CT abdomen and pelvis 01/20/2021. TECHNIQUE: Real-time imaging of the right upper quadrant abdominal viscera. Limited visualization of pancreatic tail and head. Imaged portion of pancreatic body is unremarkable. FINDINGS: PANCREAS: Limited visualization of pancreatic tail and head. Imaged portion of pancreatic duct measures 2 mm in diameter. LIVER: Liver is normal in size. Increased hepatic parenchymal heterogeneity and echogenicity could be associated with hepatocellular disease/hepatic steatosis and substantially limits visualization. Correlation with liver function tests and clinical exam recommended to determine further management. GALLBLADDER: Gallbladder is surgically absent. COMMON BILE DUCT: Normal in caliber measuring 0.5 cm in diameter. RIGHT KIDNEY: No hydronephrosis or renal calculi. A 1.0 cm lateral lower pole cyst with benign features. There is no indication for follow-up imaging. The kidney measures 10.0 cm in maximum dimension. FREE FLUID: None. US/US abdomen limited IMPRESSION: 1. Increased hepatic parenchymal heterogeneity and echogenicity could be associated with hepatocellular disease/hepatic steatosis and substantially limits visualization. Correlation with liver function tests and clinical exam recommended to determine further management. 2. Gallbladder is surgically absent.
== END 2023-09-25 08:51 | disposition home or self-care (01) ==
LOC: HO.US 08:50
PROVIDERS: PCP Physician Assistant; Visit Provider Physician Assistant
DX: R10.11 Right upper quadrant pain (principal)
CPT/HCPCS: 76705

== ENCOUNTER 2023-11-12 15:18 | Outpatient (AMB) | payer MEDICAID, SELFPAY ==
--- NOTE | 2023-11-12 15:22 | MHC.PC.OV ---
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 Language: Citizen Of [place] Accompanied by: Self / Same As Patient Allergies No Known Allergies Allergy (Verified 11/12/23 15:28) Medication List - Last Reconciled 11/12/23 by Javier Malloy PA-C acetaminophen (Tylenol Extra Strength) 1,000 mg (2 x 500 mg) PO QID PRN blood pressure monitor As directed-testing once a day as needed cetirizine 10 mg PO DAILY PRN 90 days ibuprofen 800 mg PO Q8H levothyroxine 25 mcg PO DAILY 90 days lidocaine 5% 1 patch topical DAILY 30 days lisinopril 5 mg PO DAILY 90 days pantoprazole 20 mg PO DAILY 30 days Tobacco use date assessed: 09/17/23 Fall risk assessment: No Falls in past year Last assessed Fall Risk: 11/12/23 Dental Screening Dental Screen Date: 09/17/23 HPI f/u HTN/ Labs HPI Details Patient is a 68 year male here today for a follow-up visit Today presrent with his daughter whom help with interpretation. ? Patient has a past medical history significant s/o colectomy ( 2008) chronic lumbar spine pain , ? TB in his liver, Chronic lower lumbar spine pain--continues to chronic lower lumbar spine pain that he has been dealing with the years. 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 He does use Tylenol and ibuprofen which temporarily reduces his pain though continues. He would like to see a back specialist .. Foot callus: Continues to have painful foot calluses that he tried to remove on his own with some decent relief. Has tried to change his footwear though still has some plantar pain. He is interested in seeing a boats renter. . Hypertension: Blood pressure acceptable today in office. Continues on low-dose lisinopril with good effect. .. Hypothyroidism: Most recent TSH slightly elevated. Will increase his levothyroxine to 50 mcg Laboratory Tests 02/21/22 09/19/23 16:54 08:55 RBC 4.48 L Hgb 13.4 L AST 26 ALT 31 TSH 4.81 H 4.37 H PFSH Medical History Hepatitis C Impaired glucose metabolism Social History Housing: House Alcohol intake: former Year quit: 1999 Patient Tobacco Use Status: Never used Tobacco Tobacco use type: Cigarette e-Cigarette/Vaping Use: Never Used Second Hand Smoke Exposure: No service: No Current occupational status: employed Current occupation: [employer] Cognitive needs: No Hearing needs: No Vision needs: Yes (wear glasses) Questionnaire Thrive Questionnaire Date Thrive assessed: 09/17/23 MARS-7 AMB Questionnaire MARS-7 Date MARS - 7 assessed: 09/17/23 Source: Developed by Drs. Collin Rosen, Tenisha Mcconnell, Blade Atkinson and colleagues, with an educational josemanuel from [employer]. Review of Systems Const Denies headache(s) Eyes Denies loss of vision ENT Denies vertigo, Denies dizziness, Denies headache(s) and Denies sore throat Card Denies chest pain, Denies leg edema and Denies lightheadedness Resp Denies cough, Denies hemoptysis and Denies wheezing GI Denies abdominal pain, Denies melena, Denies constipation, Denies diarrhea and Denies vomiting Denies dysuria, Denies urinary frequency and Denies urinary urgency Musc Denies arthralgias, Denies joint swelling, Denies numbness and Denies tingling Neuro Denies Abnormal speech present, Denies behavioral changes, Denies vertigo, Denies dizziness, Denies headache(s), Denies loss of vision, Denies memory loss, Denies numbness and Denies tingling Psych Denies anxiety, Denies behavioral changes, Denies depression, Denies memory loss and Denies panic attacks Chris/Lymph Denies easy bleeding and Denies easy bruising Aller/Immun Denies wheezing Physical exam (Primary Care) Tobacco/Smoking Status: Tobacco use Status Tobacco use date assessed 09/17/23 11/12/23 15:22 Patient Tobacco Use Status Never used Tobacco 11/12/23 15:22 Tobacco use type Cigarette 11/12/23 15:22 e-Cigarette/Vaping Use Never Used 11/12/23 15:22 Thrive Assessment: Date of Thrive Assessment Date Thrive assessed 09/17/23 11/12/23 15:22 Const General: healthy appearing, no acute distress, alert and awake Nutritional Appearance: well nourished Orientation/consciousness: oriented to person, oriented to place and oriented to time HENMT Ears: TM's normal bilaterally General nose exam: Normal nasal mucous membranes and turbinates present Eyes Conjunctivae: conjunctivae normal Sclerae: sclerae normal Pupils: Equal, round and reactive pupils present Neck Neck: Yes no lymphadenopathy and Yes no JVD Thyroid: Thyroid normal Carotids: no bruits Resp Effort & Inspection: normal respiratory effort and not tachypneic Auscultation: no crackles, no rales, no rhonchi and no wheezes Cardio Rate: regular rate Rhythm: regular rhythm Heart sounds: no murmurs and normal S1 and S2 GI Palpation (GI): Soft to palpation, nontender, no hepatomegaly and no splenomegaly Auscultation: normal bowel sounds Skin General skin exam: no rashes or lesions noted and dry skin Neuro General: oriented to person, oriented to place and oriented to time Cranial nerves: Yes Equal, round and reactive pupils present Speech: No Abnormal speech present Gait exam (Neuro): Normal gait present Motor exam (neuro): no tremor noted Extrem Right upper extremity: full ROM Left upper extremity: full ROM Right lower extremity: full ROM; no edema Left lower extremity: full ROM; no edema Psych Mental Status: mental status grossly normal Speech and movement: Normal speech and movement present Affect: normal affect Attitude: cooperative Thought process: Normal thought process present Assessment and Plan Assessment & Plan (1) Impaired glucose metabolism: Code(s): R73.09 - Other abnormal glucose Plan: Most recent A1c is 5.9. Has made lifestyle and dietary changes and has reduced his fasting blood sugar and A1c. Will continue to work on lifestyle and dietary modifications. (2) HTN (hypertension): Code(s): I10 - Essential (primary) hypertension Qualifiers: Hypertension type: primary hypertension Qualified Code(s): I10 - Essential (primary) hypertension Plan: Blood pressure acceptable today in office. Continue on lisinopril 5mg daily. Advised to monitor blood pressure at home with goal blood pressure to be below 140/90 (3) Lumbar spine pain: Code(s): M54.50 - Low back pain, unspecified Plan: Continues to have lower lumbar spine pain that he uses NSAIDs and topical lidocaine for with decent affect. Contains used to work full-time, he reports he has tried chiropractics and physical therapy in the past though have too effective. He would like to see a pain/lumbar customer experience specialist for possible evaluation (4) Elevated TSH: Code(s): R79.89 - Other specified abnormal findings of blood chemistry Plan: Most recent TSH slightly elevated thus will increase his levothyroxine to 50 mcg daily. Orders: Referrals Pain Management Referral M54.50 - Low back pain, unspecified Medications: New levothyroxine 50 mcg PO DAILY 90 days 90 tabs 1RF R79.89 - Other specified abnormal findings of blood chemistry tizanidine 2 mg PO ONCE 10 days PRN 10 tabs 0RF muscle spasticity M54.50 - Low back pain, unspecified Discontinued levothyroxine Discontinued Reason: Doctor's Order 25 mcg PO DAILY 90 days 90 tabs 1RF R79.89 - Other specified abnormal findings of blood chemistry Patient Instructions: Goal: Blood pressure to be below 140/90 Barriers: Adherence to physical activity and healthy eating habits Coding Level of Care Code Est Pt Level 4 (23195) Diagnoses Impaired glucose metabolism R73.09 Primary hypertension I10 Hypertension type: primary hypertension Lumbar spine pain M54.50 Elevated TSH R79.89
[2023-11-12 15:27] VITALS: BP 122/72; PULSE 101; O2SAT 97; BMI 29.9
== END 2023-11-12 15:51 | disposition home or self-care (01) ==
PROVIDERS: PCP Physician Assistant; Visit Provider Physician Assistant
DX: R73.09 Other abnormal glucose (principal); I10 Essential (primary) hypertension; M54.50 Low back pain, unspecified; R79.89 Other specified abnormal findings of blood chemistry
CPT/HCPCS: 99214

== ENCOUNTER 2023-11-20 09:35 | Outpatient (AMB) | payer MEDICAID, SELFPAY ==
--- NOTE | 2023-11-20 09:38 | A.OFFVIS_ITS ---
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 Back pain has been chronic condition for him and has been progressively worsening over the past year. 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 He completed physical [place] [facility] [place] 5 ye ars ago with aggravation of his pain. Denies previous spine surgery or injections. Patient reports with worsening back pain he has been loosing balance when standing or bending. Pain affects his daily activities function, mobility, work, sleep, and social interactions. Previous lumbar spine imaging is noted below. We will update lumbar spine MRI. Denies any fever, chills, weight loss, abdominal or pain, bladder or bowel dysfunction or saddle anesthesia. Oswestry Low Back Pain Disability Score=25 (severe disability) Location: Lower back pain, numbness and tingling BLE posteriorly Duration: Chronic pain for many years, progressively worsening Characteristics of symptom or complaint: Aching, spasming, shooting, cramping, throbbing Aggravating or associated factors: Standing, walking, bending, movements, heavy lifting, pulling, twisting Relieving factors: Laying flat, rest, heat therapy, NSAIDs Treatment: PT at [facility] [place] [facility] Medical History Hepatitis C Impaired glucose metabolism Social History Housing: House Alcohol intake: former Year quit: 1999 Patient Tobacco Use Status: Never used Tobacco Tobacco use type: Cigarette e-Cigarette/Vaping Use: Never Used Second Hand Smoke Exposure: No service: No Current occupational status: employed Current occupation: [employer] Cognitive needs: No Hearing needs: No Vision needs: Yes (wear glasses) Review of Systems Const All systems reviewed & are unremarkable except as noted in HPI and below Physical Exam Vital Signs: Last Vital Signs Pulse 70 11/20/23 09:42 BP 130/68 11/20/23 09:42 Pulse Ox 98 11/20/23 09:42 Oxygen Delivery Method Room Air 11/20/23 09:42 BMI result Body Mass Index 29.8 General: Appears afebrile. Alert and oriented. Mood and affect appropriate. Follows and participates in conversation appropriately. Respiratory effort is unlabored. No cough. Able to transition from sit to stand unassisted. Ambulates with bilaterally normal heel strike and toe off, reports intermittent imbalance with prolonged standing or walking. General: Yes no CVA tenderness Back/Spine/Pelvis Other: Limited lumbar ROM due to pain. Mildly antalgic gait, no limping. Can flex forward to 70-75 degrees and extend to 5-10 degrees before experiencing lumbar pain. Demonstrates 5/5 strength of quadriceps bilaterally as well as flexion/dorsiflexion of bilateral feet against resistance. 2+ pedal pulses bilaterally. Seated straight leg rise with dorsiflexion negative bilaterally. +1 patellar and +1 achilles reflexes bilaterally. Facet loading test positive bilaterally, worse on the right side. Florecita sign, Christian?s, Gaenslen, Pelvic compression and Stinchfield tests are positive on the right. No groin pain with I/E hip rotations. Valsalva maneuver negative. Back: no CVA tenderness Cervical Spine: cervical ROM normal, cervical muscular tenderness and No Cervical spine tenderness Thoracic/Lumbar Spine: thoracic and lumbar spine normal to inspection, No Thoracic/lumbar spine scar(s), Lasegue's sign negative, straight leg raise negative bilaterally, pain with thoraco-lumbar ROM, paraspinal muscle tenderness, thoraco-lumbar ROM limited, No thoracic spinal tenderness and lumbar spinal tenderness (L3-S1) Pelvis: buttock tenderness bilaterally and no sciatic notch tenderness Sacroiliac joints: bilaterally (right>left) tender to palpation Extrem General: Yes capillary refill normal, Yes no clubbing, cyanosis or edema and Yes no calf tenderness Results Reviewed Results Reviewed: XR LUMBOSACRAL SPINE 08/20/21 CLINICAL INFORMATION: Low back pain. FINDINGS: There is sacralization of the L5 vertebra with partial ankylosis of a prominent right-sided L5 transverse process. No acute fractures identified. There is a mild grade 1 spondylolisthesis L4-L5 with bilateral facet arthropathy. There is disc space narrowing seen throughout the lumbar spine. Marginal osteophytes are seen at multiple levels with ankylosis of L1-L2. No acute fractures identified. No definite spondylolysis is seen. IMPRESSION: No acute fracture or spondylolysis of the lumbar spine. Multilevel degenerative disc disease as described. Sacralization of L5 with prominent right transverse process articulating with the right iliac crest and superior sacroiliac joint. 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 CT/CT abdomen pelvis 01/20/21 SKELETAL: Multilevel degenerative arthropathy of the visualized thoracal lumbar spine. Severe facet arthropathy of L5-S1 is associated with grade 1 anterolisthesis of L5 on S1. The right and left gluteus muscles are atrophied and partially replaced by fat. No soft tissue mass. Assessment & Plan Assessment & Plan (1) Degenerative joint disease (DJD) of lumbar spine: Code(s): M47.816 - Spondylosis without myelopathy or radiculopathy, lumbar region Category: Medical Qualifiers: Spinal osteoarthritis complication: with myelopathy Qualified Code(s): M47.16 - Other spondylosis with myelopathy, lumbar region (2) Spondylolisthesis, lumbosacral region: Code(s): M43.17 - Spondylolisthesis, lumbosacral region Category: Medical (3) Sacralization of lumbar vertebra: Code(s): Q76.49 - Other congenital malformations of spine, not associated with scoliosis Category: Medical (4) Lumbosacral spondylosis: Code(s): M47.817 - Spondylosis without myelopathy or radiculopathy, lumbosacral region Category: Medical Plan MRI of the lumbar spine to assess for neural integrity and compression and follow up on previous MRI findings. Will also obtain lumbar spine xray with flexion and extension views to assess for stability. Patient has significant facet arthropathy of L5-S1 with grade 1 anterolisthesis of L5 on S1 and right L5 sacralization per previous imaging findings in [id number]. Short script provided for tramadol for moderate-severe pain. Side effects and precautions were discussed with patient his family. Narcan also sent today. All questions and concerns have been answered and patient agreed with the plan. Follow up for MRI/xray review and sooner as needed. Orders: Orders MR lumbar spine wo con 11/20/23 M43.17 - Spondylolisthesis, lumbosacral region, M47.817 - Spondylosis without myelopathy or radiculopathy, lumbosacral region, Q76.49 - Other congenital malformations of spine, not associated with scoliosis XR lumbar spine 4V min 11/21/23 M43.17 - Spondylolisthesis, lumbosacral region, M47.817 - Spondylosis without myelopathy or radiculopathy, lumbosacral region, Q76.49 - Other congenital malformations of spine, not associated with scoliosis Medications: New tramadol 50 mg PO Q8H PRN 21 tabs 0RF pain 7 days M43.17 - Spondylolisthesis, lumbosacral region, M47.817 - Spondylosis without myelopathy or radiculopathy, lumbosacral region, Q76.49 - Other congenital malformations of spine, not associated with scoliosis naloxone 4 mg/actuation (Narcan) spray 1 dose into ONE nostril; alternate nostrils w each dose until help arrives 4 mg intranasal Q2M PRN 2 ea 0RF opioid overdose Coding Level of Care Code New Pt Level 4 (01421) Diagnoses Osteoarthritis of lumbar spine with myelopathy M47.16 Spinal osteoarthritis complication: with myelopathy Spondylolisthesis, lumbosacral region M43.17 Sacralization of lumbar vertebra Q76.49 Lumbosacral spondylosis M47.817
[2023-11-20 09:42] VITALS: BP 130/68; PULSE 70; O2SAT 98; BMI 29.8
== END 2023-11-20 10:30 | disposition home or self-care (01) ==
PROVIDERS: PCP Physician Assistant; Visit Provider Nurse Practitioner Family
DX: M47.16 Other spondylosis with myelopathy, lumbar region (principal); M43.17 Spondylolisthesis, lumbosacral region; Q76.49 Other congenital malformations of spine, not associated with scoliosis; M47.817 Spondylosis without myelopathy or radiculopathy, lumbosacral region
CPT/HCPCS: 99204

== ENCOUNTER → 2023-11-20 09:35 | Outpatient (BNVA) | payer MEDICAID, SELFPAY | PROVIDERS: PCP Physician Assistant; Visit Provider Nurse Practitioner Family | DX: M47.16 Other spondylosis with myelopathy, lumbar region (principal); M43.17 Spondylolisthesis, lumbosacral region; Q76.49 Other congenital malformations of spine, not associated with scoliosis; M47.817 Spondylosis without myelopathy or radiculopathy, lumbosacral region | CPT/HCPCS: 99212 ==

== ENCOUNTER 2023-11-21 10:30 | Outpatient (REF) | payer MEDICAID, SELFPAY ==
--- NOTE | ~2023-11-21 | XR_ITS ---
EXAMINATION: XR LUMBAR SPINE CLINICAL INFORMATION: Spondylosis without myelopathy or radiculopathy COMPARISON: None TECHNIQUE: 5 views of the lumbar spine FINDINGS: Mild degenerative grade 1 anterolisthesis of L5 over S1. Minimal retrolisthesis of L3 over L4. The lumbar vertebral bodies demonstrate normal height. Multilevel lumbar spondylosis with marginal osteophytes, endplate sclerosis and mild to moderate intervertebral disc space narrowing. Bilateral facet arthropathy, most pronounced at L3-L4 through L5-S1. On the oblique views, pars defects. The paraspinous soft tissues appear unremarkable. Bilateral sacroiliac joints are intact. Surgical clips in the right upper quadrant. Degenerative changes of the visualized lower thoracic spine. XR/XR lumbar spine 4V min IMPRESSION: Multilevel lumbar spondylosis as detailed with degenerative grade 1 anterolisthesis of L5 over S1. Electronically signed by: Evert Mancuso MD 02/02/2024 10:20 AM EDT
== END 2023-11-21 10:31 | disposition home or self-care (01) ==
LOC: HO.XRAY 10:30
PROVIDERS: PCP Registered Nurse; Visit Provider Nurse Practitioner Family
DX: M47.817 Spondylosis without myelopathy or radiculopathy, lumbosacral region (principal); M43.17 Spondylolisthesis, lumbosacral region
CPT/HCPCS: 72110

== ENCOUNTER 2024-01-16 10:49 | Outpatient (REF) | payer MEDICAID, SELFPAY ==
--- NOTE | ~2024-01-16 | MR_ITS ---
EXAMINATION: MR LUMBAR SPINE WITHOUT CONTRAST CLINICAL INFORMATION: Spondylosis without myelopathy or radiculopathy. COMPARISON: CT abdomen and pelvis 01/20/2021. TECHNIQUE: MRI of the lumbar spine was obtained using routine sequences without contrast. FINDINGS: There is grade 1 anterolisthesis of L5 on S1 related to advanced facet degenerative changes at this level. Slight grade 1 retrolisthesis of L3 on L4 and slight grade 1 anterolisthesis of L4 on L5. Vertebral body heights are maintained. Bridging bone fuses the L2 and L3 vertebral segments. No acute bone marrow signal changes. There is loss of intervertebral disc height and T2 signal intensity at multiple levels related to disc degeneration. The tip of the conus medullaris is located at L2. No mass effect on the conus. Visualized distal cord signal intensity is normal. At L1-L2 there is a bulging disc. Bilateral facet degenerative change. No canal stenosis. No mass effect on the traversing or foraminal nerve roots. At L2-L3 there is no canal or neuroforaminal compromise. At L3-L4 there is a shallow right central protrusion superimposed upon a bulging disc. No canal stenosis. No mass effect on the traversing or foraminal nerve roots. At L4-L5 there is a pseudodisc bulge. Advanced bilateral facet degenerative change. No canal stenosis. There is mild mass effect on the extraforaminal segment of the right L4 nerve root related to a laterally bulging disc. At L5-S1 there is a pseudodisc bulge. Advanced bilateral facet degenerative change. No canal stenosis. Mild mass effect on the foraminal/extra foraminal segment of the left L5 nerve root. Limited visualization of the retroperitoneal anatomy reveals no abnormal finding. Psoas and paraspinal muscle groups are symmetric. MR/MR lumbar spine wo con IMPRESSION: There is multilevel degenerative spondylosis of the lumbar spine with slight grade 1 anterolisthesis of L5 on S1 related to advanced facet degenerative changes at this level. Slight grade 1 retrolisthesis of L3 on L4 and slight grade 1 anterolisthesis of L4 on L5. No canal stenosis. There is mild mass effect on the extraforaminal segment of the right L4 nerve root related to a laterally bulging disc at L4-L5 and mild mass effect on the foraminal/extraforaminal segment of the left L5 nerve root related to degenerative changes at L5-S1. Electronically signed by: Collin Bishop MD 01/16/2024 03:10 PM EDT RP
== END 2024-01-16 10:50 | disposition home or self-care (01) ==
LOC: HO.MRI 10:49
PROVIDERS: PCP Registered Nurse; Visit Provider Nurse Practitioner Family
DX: M47.817 Spondylosis without myelopathy or radiculopathy, lumbosacral region (principal); Q76.49 Other congenital malformations of spine, not associated with scoliosis
CPT/HCPCS: 72148

== ENCOUNTER 2024-02-12 11:23 | Outpatient (AMB) | payer MEDICAID, SELFPAY ==
--- NOTE | 2024-02-12 11:24 | A.OFFVIS_ITS ---
Vital Signs 02/12/24 11:31 Height 5 ft 2 in Weight 170 lb 8 oz BMI 31.2 BP 160/70 H Blood Pressure Location Lt brachial Position Sitting Respiration 14 Pulse 82 Pulse Source Pulse Oximeter Pulse Oximetry (%) 98 Oxygen Delivery Method Room Air Intake Visit Reasons: MRI FOLLOW UP/RESULTS Intake Note: Patient comes in to discuss MRI results. Orthotic Fitter Required: Yes Orthotic Fitter Services: Orthotic Fitter Present Orthotic Fitter Name: Avery #[id number] Allergies No Known Allergies Allergy (Verified 02/12/24 11:32) HPI Comments Details: Patient presents today for follow-up to review recent lumbar spine MRI results. travel accommodations rater was utilized during this visit. Denies any recent cough, cold, infection, fever or other significant changes in medical history since last office visit. PRIOR: Patient is a 68 years old Japanese speaking male with history of chronic low back pain, right L5 sacralization, lumbar spondylolisthesis, presents today for initial evaluation of low back pain. Back pain has been chronic condition for him and has been progressively worsening over the past year. 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 He completed physical therapy at [facility] about 5 years ago with aggravation of his pain. Denies previous spine surgery or injections. Patient reports with worsening back pain he has been loosing balance when standing or bending. Pain affects his daily activities function, mobility, work, sleep, and social interactions. Previous lumbar spine imaging is noted below. We will update lumbar spine MRI. Denies any fever, chills, weight loss, abdominal or pain, bladder or bowel dysfunction or saddle anesthesia. Oswestry Low Back Pain Disability Score=25 (severe disability) Location: Lower back pain, numbness and tingling BLE posteriorly Duration: Chronic pain for many years, progressively worsening Characteristics of symptom or complaint: Aching, spasming, shooting, cramping, throbbing Aggravating or associated factors: Standing, walking, bending, movements, heavy lifting, pulling, twisting Relieving factors: Laying flat, rest, heat therapy, NSAIDs Treatment: PT at [facility] in 2019 [facility] Medical History Hepatitis C Impaired glucose metabolism Social History Housing: House Alcohol intake: former Year quit: 1999 Patient Tobacco Use Status: Never used Tobacco Tobacco use type: Cigarette e-Cigarette/Vaping Use: Never Used Second Hand Smoke Exposure: No service: No Current occupational status: employed Current occupation: [employer] Cognitive needs: No Hearing needs: No Vision needs: Yes (wear glasses) Review of Systems Const All systems reviewed & are unremarkable except as noted in HPI and below Physical Exam General: Appears afebrile. Alert and oriented. Mood and affect appropriate. Follows and participates in conversation appropriately. Respiratory effort is unlabored. No cough. Able to transition from sit to stand unassisted. Ambulates with bilaterally normal heel strike and toe off, reports intermittent imbalance with prolonged standing or walking. General: Yes no CVA tenderness Back/Spine/Pelvis Other: Limited lumbar ROM due to pain. Mildly antalgic gait, no limping. Can flex forward to 70-75 degrees and extend to 5-10 degrees before experiencing lumbar pain. Demonstrates 5/5 strength of quadriceps bilaterally as well as flexion/dorsiflexion of bilateral feet against resistance. 2+ pedal pulses b ilaterally. Seated straight leg rise with dorsiflexion negative bilaterally. +1 patellar and +1 achilles reflexes bilaterally. Facet loading test positive bilaterally, worse on the right side. Florecita sign, Christian?s, Gaenslen, Pelvic compression and Stinchfield tests are positive on the right. No groin pain with I/E hip rotations. Valsalva maneuver negative. Back: no CVA tenderness Cervical Spine: cervical ROM normal, cervical muscular tenderness and No Cervical spine tenderness Thoracic/Lumbar Spine: thoracic and lumbar spine normal to inspection, No Thoracic/lumbar spine scar(s), Lasegue's sign negative, straight leg raise negative bilaterally, pain with thoraco-lumbar ROM, paraspinal muscle tenderness, thoraco-lumbar ROM limited, No thoracic spinal tenderness and lumbar spinal tenderness (L3-S1) Pelvis: buttock tenderness bilaterally and no sciatic notch tenderness Sacroiliac joints: bilaterally (right>left) tender to palpation Extrem General: Yes capillary refill normal, Yes no clubbing, cyanosis or edema and Yes no calf tenderness Results Reviewed Results Reviewed: MR LUMBAR SPINE WITHOUT CONTRAST 01/16/24 CLINICAL INFORMATION: Spondylosis without myelopathy or radiculopathy. COMPARISON: CT abdomen and pelvis 01/20/2021. TECHNIQUE: MRI of the lumbar spine was obtained using routine sequences without contrast. FINDINGS: There is grade 1 anterolisthesis of L5 on S1 related to advanced facet degenerative changes at this level. Slight grade 1 retrolisthesis of L3 on L4 and slight grade 1 anterolisthesis of L4 on L5. Vertebral body heights are maintained. Bridging bone fuses the L2 and L3 vertebral segments. No acute bone marrow signal changes. There is loss of intervertebral disc height and T2 signal intensity at multiple levels related to disc degeneration. The tip of the conus medullaris is located at L2. No mass effect on the conus. Visualized distal cord signal intensity is normal. At L1-L2 there is a bulging disc. Bilateral facet degenerative change. No canal stenosis. No mass effect on the traversing or foraminal nerve roots. At L2-L3 there is no canal or neuroforaminal compromise. At L3-L4 there is a shallow right central protrusion superimposed upon a bulging disc. No canal stenosis. No mass effect on the traversing or foraminal nerve roots. At L4-L5 there is a pseudodisc bulge. Advanced bilateral facet degenerative change. No canal stenosis. There is mild mass effect on the extraforaminal segment of the right L4 nerve root related to a laterally bulging disc. At L5-S1 there is a pseudodisc bulge. Advanced bilateral facet degenerative change. No canal stenosis. Mild mass effect on the foraminal/extra foraminal segment of the left L5 nerve root. Limited visualization of the retroperitoneal anatomy reveals no abnormal finding. Psoas and paraspinal muscle groups are symmetric. IMPRESSION: There is multilevel degenerative spondylosis of the lumbar spine with slight grade 1 anterolisthesis of L5 on S1 related to advanced facet degenerative changes at this level. Slight grade 1 retrolisthesis of L3 on L4 and slight grade 1 anterolisthesis of L4 on L5. No canal stenosis. There is mild mass effect on the extraforaminal segment of the right L4 nerve root related to a laterally bulging disc at L4-L5 and mild mass effect on the foraminal/extraforaminal segment of the left L5 nerve root related to degenerative changes at L5-S1. XR LUMBOSACRAL SPINE 08/20/21 CLINICAL INFORMATION: Low back pain. FINDINGS: There is sacralization of the L5 vertebra with partial ankylosis of a prominent right-sided L5 transverse process. No acute fractures identified. There is a mild grade 1 spondylolisthesis L4-L5 with bilateral facet arthropathy. There is disc space narrowing seen throughout the lumbar spine. Marginal osteophytes are seen at multiple levels with ankylosis of L1-L2. No acute fractures identified. No definite spondylolysis is seen. IMPRESSION: No acute fracture or spondylolysis of the lumbar spine. Multilevel degenerative disc disease as described. Sacralization of L5 with prominent right transverse process articulating with the right iliac crest and superior sacroiliac joint. 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 CT/CT abdomen pelvis 01/20/21 SKELETAL: Multilevel degenerative arthropathy of the visualized thoracal lumbar spine. Severe facet arthropathy of L5-S1 is associated with grade 1 anterolisthesis of L5 on S1. The right and left gluteus muscles are atrophied and partially replaced by fat. No soft tissue mass. Assessment & Plan Assessment & Plan (1) Degenerative joint disease (DJD) of lumbar spine: Code(s): M47.816 - Spondylosis without myelopathy or radiculopathy, lumbar region Category: Medical Qualifiers: Spinal osteoarthritis complication: with myelopathy Qualified Code(s): M47.16 - Other spondylosis with myelopathy, lumbar region (2) Spondylolisthesis, lumbosacral region: Code(s): M43.17 - Spondylolisthesis, lumbosacral region Category: Medical (3) Sacralization of lumbar vertebra: Code(s): Q76.49 - Other congenital malformations of spine, not associated with scoliosis Category: Medical (4) Lumbosacral spondylosis: Code(s): M47.817 - Spondylosis without myelopathy or radiculopathy, lumbosacral region Category: Medical (5) Lumbar spine pain: Code(s): M54.50 - Low back pain, unspecified Category: Medical Plan MRI of the lumbar spine imaging results were discussed with patient today with assistance of Metal Box Maker. Discussed interventional treatments for axial low back pain and radicular symptoms. Informative pamphlets provided in Japanese. Schedule Bilateral Diagnostic L3-L4-DR L5 MBB with local and fluoroscopy axial low back pain for potential RFA procedure. Expectations, risks and benefits were reviewed. Patient is aware he will be contacted to schedule this procedure. We also discussed peripheral nerve stimulation with Sprint device which patient declined. 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 Patient reports good relief with tramadol without any side effects. Will refill medication for moderate-severe pain only as patient awaits for his procedure. All questions were answered and the patient is in agreement of plan. Follow-up after injections and sooner as needed. Medications: Refilled tramadol 50 mg PO Q8H 7 days PRN 21 tabs 0RF pain M43.17 - Spondylolisthesis, lumbosacral region, M47.817 - Spondylosis without myelopathy or radiculopathy, lumbosacral region, Q76.49 - Other congenital malformations of spine, not associated with scoliosis Coding Level of Care Code Est Pt Level 4 (15072) Complex EM visit Add On G2211 Diagnoses Osteoarthritis of lumbar spine with myelopathy M47.16 Spinal osteoarthritis complication: with myelopathy Spondylolisthesis, lumbosacral region M43.17 Sacralization of lumbar vertebra Q76.49 Lumbosacral spondylosis M47.817 Lumbar spine pain M54.50
[2024-02-12 11:31] VITALS: BP 160/70; PULSE 82; RESP 14; O2SAT 98; BMI 31.2
== END 2024-02-12 11:53 | disposition home or self-care (01) ==
LOC: HO.PMC 11:23
PROVIDERS: PCP Registered Nurse; Visit Provider Nurse Practitioner Family
DX: M47.16 Other spondylosis with myelopathy, lumbar region (principal); M43.17 Spondylolisthesis, lumbosacral region; Q76.49 Other congenital malformations of spine, not associated with scoliosis; M47.817 Spondylosis without myelopathy or radiculopathy, lumbosacral region; M54.50 Low back pain, unspecified
CPT/HCPCS: 99214

== ENCOUNTER → 2024-02-12 11:23 | Outpatient (BNVA) | payer MEDICAID, SELFPAY | PROVIDERS: PCP Registered Nurse; Visit Provider Nurse Practitioner Family | DX: M47.16 Other spondylosis with myelopathy, lumbar region (principal); M47.817 Spondylosis without myelopathy or radiculopathy, lumbosacral region; M54.50 Low back pain, unspecified; Q76.49 Other congenital malformations of spine, not associated with scoliosis | CPT/HCPCS: 99212 ==

== ENCOUNTER 2024-03-24 06:10 | Outpatient (REF) | payer MEDICAID, SELFPAY ==
--- NOTE | ~2024-03-24 | FL_ITS ---
EXAMINATION: FLUORO GUIDANCE IN TREATMENT ROOM CLINICAL INFORMATION: Spondylosis without myelopathy or radiculopathy, lumbosacral region. COMPARISON: None available. TECHNIQUE: Fluoroscopy supervised by: Dr. Brendon Chaudhary. Fluoroscopy time: 0.1 minutes. Cumulative Dose: 1.52 mGy. DAP: 0.0227 mGy-m2 (milligray-meter squared). Images: 3. FINDINGS: Single image demonstrates transforaminal needles at 2 levels and contrast was injected. An additional image demonstrates one station lower. FL/FL guidance in treatment room IMPRESSION: Fluoroscopy guidance for pain management procedure. Electronically signed by: King Correa MD 05/12/2024 07:52 AM MELISSA
== END 2024-03-24 06:11 | disposition home or self-care (01) ==
LOC: CF 06:10
PROVIDERS: Visit Provider Internal Medicine
DX: M47.817 Spondylosis without myelopathy or radiculopathy, lumbosacral region (principal)
CPT/HCPCS: 64493; 64494; J2003; J2795; Q9967

== ENCOUNTER 2024-03-24 10:46 | Outpatient (AMB) | payer MEDICAID, SELFPAY ==
--- NOTE | 2024-03-24 10:51 | A.OFFVIS_ITS ---
Vital Signs 03/24/24 10:53 03/24/24 11:10 BP 143/76 H 136/62 Blood Pressure Location Rt brachial Lt brachial Position Sitting Sitting Pulse 75 72 Pulse Source Pulse Oximeter Pulse Oximeter Pulse Oximetry (%) 94 97 Oxygen Delivery Method Room Air Room Air Intake Visit Reasons: olivia Dx L3-L4-DR-L5 MBB Allergies No Known Allergies Allergy (Verified 02/12/24 11:32) HPI HPI loivia Dx L3-L4-DR-L5 MBB: Details: Patient presents for scheduled procedure. Denies any recent cough, cold, infection, fever or other significant changes in medical history since last of fice visit. [facility] Medical History Hepatitis C Impaired glucose metabolism Social History Housing: House Alcohol intake: former Year quit: 1999 Patient Tobacco Use Status: Never used Tobacco Tobacco use type: Cigarette e-Cigarette/Vaping Use: Never Used Second Hand Smoke Exposure: No service: No Current occupational status: employed Current occupation: [employer] Cognitive needs: No Hearing needs: No Vision needs: Yes (wear glasses) Physical Exam Vital Signs: Last Vital Signs Pulse 75 03/24/24 10:53 BP 143/76 H 03/24/24 10:53 Pulse Ox 94 03/24/24 10:53 Oxygen Delivery Method Room Air 03/24/24 10:53 Office Procedures Lumbar/Sacral Facet Inj Details: Lumbar Medial Branch Block, Bilateral L3, L4 medial branches and L5 Dorsal Ramus (2 levels, 3 nerves) After obtaining written consent, pre-procedure blood pressure and pulse were recorded and are in the nursing record for review. The patient was placed in a prone position. The respective lumbosacral area was prepped with chloraprep and draped in sterile fashion. The skin over the target medial branch nerves was anesthetized with 0.5% lidocaine. A 22 gauge 3.5 inch needle was inserted into the target medial branch nerve under fluoroscopic guidance. No paresthesias were elicited with needle placement and aspiration was negative for blood and CSF. Next, 0.2cc of omnipaque 180 was injected to verify positioning. Next 0.5 ml 0.5% ropivicaine was injected (0.5cc total per level). The identical procedure was performed at the remaining levels. The skin was cleansed and a sterile bandage was applied. Following the procedure the patient's vital signs were stable. The patient tolerated the procedure well and no complications were encountered. Following the procedure the patient's vital signs were stable. The patient was discharged home in good condition with post-procedural instructions. Time Out: Immediately prior to the procedure, the following was verbally confirmed that there is a signed consent form and that the correct patient, planned procedure, site and side are consistent with documentation and that necessary equipment and/or blood products are available prior to the start of the case. Complications: none EBL: <5 cc 55489 - with Fluoroscopy 22529 - second level, with Fluoroscopy (bilateral) Procedure code (CPT) selection complete Assessment & Plan Assessment & Plan (1) Lumbosacral spondylosis: Code(s): M47.817 - Spondylosis without myelopathy or radiculopathy, lumbosacral region Category: Medical Plan Patient is status post bilateral L3, L4, L5 diagnostic medial branch blocks. Patient tolerated procedure well and was discharged home in stable condition with discharge instructions. All questions were answered. We will follow-up via telephone or in clinic to assess response to therapy. A follow-up appointment was made during today's visit. Orders: Orders FL guidance in treatment room Today M47.817 - Spondylosis without myelopathy or radiculopathy, lumbosacral region Coding Level of Care Code Procedure Only Diagnoses Lumbosacral spondylosis M47.817 CPT Codes Facet Injection-Lumbar/Sacral - CPT: 30426 - with Fluoroscopy ([id number]) Facet Injection-Lumbar/Sacral - CPT: 42757 - second level, with Fluoroscopy ([id number])
[2024-03-24 10:53] VITALS: BP 143/76; PULSE 75; O2SAT 94
[2024-03-24 11:10] VITALS: BP 136/62; PULSE 72; O2SAT 97
== END 2024-03-24 11:12 | disposition home or self-care (01) ==
LOC: HO.PMCPRC 10:46
PROVIDERS: PCP Registered Nurse; Visit Provider Internal Medicine
DX: M47.817 Spondylosis without myelopathy or radiculopathy, lumbosacral region (principal)
CPT/HCPCS: 64493; 64494

== ENCOUNTER 2024-04-05 11:10 | Outpatient (AMB) | payer MEDICAID, SELFPAY ==
--- NOTE | 2024-04-05 11:13 | A.OFFVIS_ITS ---
Vital Signs 04/05/24 11:16 Height 5 ft 2 in Weight 175 lb BMI 32.0 BP 167/77 H Blood Pressure Location Lt brachial Position Sitting Pulse 83 Pulse Source Pulse Oximeter Pulse Oximetry (%) 97 Oxygen Delivery Method Room Air Intake Visit Reasons: s/p olivia Dx L3-L4-DR-L5 MBB Intake Note: Pain today 5/10 Head Knitting Machine Fixer Required: Yes Head Knitting Machine Fixer Language: Senior Software Qa Engineer Services: Head Knitting Machine Fixer Offered & Declined Head Knitting Machine Fixer Name: assists per pt's request Accompanied by: Spouse Allergies No Known Allergies Allergy (Verified 04/05/24 11:17) HPI Comments Details: Patient presents today to assess response to Bilateral Diagnostic L3-L4 DR L5 MBB on 03/24/[address] Chaudhary. Patient reports 100 % pain relief since procedure for 6 hours with significant improvement in his daily activities, functioning, standing, walking, sleeping and ROM. He reports back pain gradually returned to baseline at 7-8/10 the next day after procedure. Patient is interested to proceed with lumbar medial branch RFA as next steps for a longer term pain relief. Denies any recent cough, cold, infection, fever or other significant changes in medical history since last office visit. Past Procedures: 03/24/24: Bilateral Diagnostic L3-L4 DR L5 MBB- 100% pain relief for 6 hours, gradual return to baseline pain next day PRIOR: Patient is a 68 years old Icelandic speaking male with history of chronic low back pain, right L5 sacralization, lumbar spondylolisthesis, presents today for initial evaluation of low back pain. Back pain has been chronic condition for him and has been progressively worsening over the past year. 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 [place] [facility] with aggravation of his pain. Denies previous spine surgery or injections. Patient reports with worsening back pain he has been loosing balance when standing or bending. Pain affects his daily activities function, mobility, work, sleep, and social interactions. Previous lumbar spine imaging is noted below. We will update lumbar spine MRI. Denies any fever, chills, weight loss, abdominal or pain, bladder or bowel dysfunction or saddle anesthesia. Oswestry Low Back Pain Disability Score=25 (severe disability) Location: Lower back pain, numbness and tingling BLE posteriorly Duration: Chronic pain for many years, progressively worsening Characteristics of symptom or complaint: Aching, spasming, shooting, cramping, throbbing Aggravating or associated factors: Standing, walking, bending, movements, heavy lifting, pulling, twisting Relieving factors: Laying flat, rest, heat therapy, NSAIDs Treatment: [place] [facility] [place] [facility] Medical History Hepatitis C Impaired glucose metabolism Social History Housing: House Alcohol intake: former Year quit: 1999 Patient Tobacco Use Status: Never used Tobacco Tobacco use type: Cigarette e-Cigarette/Vaping Use: Never Used Second Hand Smoke Exposure: No service: No Current occupational status: employed Current occupation: [employer] Cognitive needs: No Hearing needs: No Vision needs: Yes (wear glasses) Review of Systems Const All systems reviewed & are unremarkable except as noted in HPI and below Physical Exam Vital Signs: Last Vital Signs Pulse 83 04/05/24 11:16 BP 167/77 H 04/05/24 11:16 Pulse Ox 97 04/05/24 11:16 Oxygen Delivery Method Room Air 04/05/24 11:16 BMI result Body Mass Index 32.0 General: Appears afebrile. No acute distress. Alert and oriented. Mood and affect appropriate. Follows and participates in conversation appropriately. Respiratory effort is unlabored. No cough. Able to transition from sit to stand unassisted. Uses cane with ambulation. Ambulates with bilaterally normal heel strike and toe off. General: Yes no CVA tenderness Back/Spine/Pelvis Other: Limited lumbar ROM due to pain. Mildly antalgic gait, no limping. Can flex forward to 70-75 degrees and extend to 5-10 degrees before experiencing lumbar pain. Demonstrates 5/5 strength of quadriceps bilaterally as well as flexion/dorsiflexion of bilateral feet against resistance. 2+ pedal pulses bilaterally. Seated straight leg rise with dorsiflexion negative bilaterally. +1 patellar and +1 achilles reflexes bilaterally. Facet loading test positive bilaterally, worse on the right side. Florecita sign, Christian?s, Gaenslen, Pelvic compression and Stinchfield tests are positive on the right. No groin pain with I/E hip rotations. Valsalva maneuver negative. Back: no CVA tenderness Cervical Spine: cervical ROM normal, cervical muscular tenderness and No Cervical spine tenderness Thoracic/Lumbar Spine: thoracic and lumbar spine normal to inspection, No Thoracic/lumbar spine scar(s), Lasegue's sign negative, straight leg raise negative bilaterally, pain with thoraco-lumbar ROM, paraspinal muscle tenderness, thoraco-lumbar ROM limited, No thoracic spinal tenderness and lumbar spinal tenderness (L3-S1) Pelvis: buttock tenderness bilaterally and no sciatic notch tenderness Sacroiliac joints: bilaterally (right>left) tender to palpation Extrem General: Yes capillary refill normal, Yes no clubbing, cyanosis or edema and Yes no calf tenderness Results Reviewed Results Reviewed: MR LUMBAR SPINE WITHOUT CONTRAST 01/16/24 CLINICAL INFORMATION: Spondylosis without myelopathy or radiculopathy. COMPARISON: CT abdomen and pelvis 01/20/2021. TECHNIQUE: MRI of the lumbar spine was obtained using routine sequences without contrast. FINDINGS: There is grade 1 anterolisthesis of L5 on S1 related to advanced facet degenerative changes at this level. Slight grade 1 retrolisthesis of L3 on L4 and slight grade 1 anterolisthesis of L4 on L5. Vertebral body heights are maintained. Bridging bone fuses the L2 and L3 vertebral segments. No acute bone marrow signal changes. There is loss of intervertebral disc height and T2 signal intensity at multiple levels related to disc degeneration. The tip of the conus medullaris is located at L2. No mass effect on the conus. Visualized distal cord signal intensity is normal. At L1-L2 there is a bulging disc. Bilateral facet degenerative change. No canal stenosis. No mass effect on the traversing or foraminal nerve roots. At L2-L3 there is no canal or neuroforaminal compromise. At L3-L4 there is a shallow right central protrusion superimposed upon a bulging disc. No canal stenosis. No mass effect on the traversing or foraminal nerve roots. At L4-L5 there is a pseudodisc bulge. Advanced bilateral facet degenerative change. No canal stenosis. There is mild mass effect on the extraforaminal segment of the right L4 nerve root related to a laterally bulging disc. At L5-S1 there is a pseudodisc bulge. Advanced bilateral facet degenerative change. No canal stenosis. Mild mass effect on the foraminal/extra foraminal segment of the left L5 nerve root. Limited visualization of the retroperitoneal anatomy reveals no abnormal finding. Psoas and paraspinal muscle groups are symmetric. IMPRESSION: There is multilevel degenerative spondylosis of the lumbar spine with slight grade 1 anterolisthesis of L5 on S1 related to advanced facet degenerative changes at this level. Slight grade 1 retrolisthesis of L3 on L4 and slight grade 1 anterolisthesis of L4 on L5. No canal stenosis. There is mild mass effect on the extraforaminal segment of the right L4 nerve root related to a laterally bulging disc at L4-L5 and mild mass effect on the foraminal/extraforaminal segment of the left L5 nerve root related to degenerative changes at L5-S1. XR LUMBOSACRAL SPINE 08/20/21 CLINICAL INFORMATION: Low back pain. FINDINGS: There is sacralization of the L5 vertebra with partial ankylosis of a prominent right-sided L5 transverse process. No acute fractures identified. There is a mild grade 1 spondylolisthesis L4-L5 with bilateral facet arthropathy. There is disc space narrowing seen throughout the lumbar spine. Marginal osteophytes are seen at multiple levels with ankylosis of L1-L2. No acute fractures identified. No definite spondylolysis is seen. IMPRESSION: No acute fracture or spondylolysis of the lumbar spine. Multilevel degenerative disc disease as described. Sacralization of L5 with prominent right transverse process articulating with the right iliac crest and superior sacroiliac joint. 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 CT/CT abdomen pelvis 01/20/21 SKELETAL: Multilevel degenerative arthropathy of the visualized thoracal lumbar spine. Severe facet arthropathy of L5-S1 is associated with grade 1 anterolisthesis of L5 on S1. The right and left gluteus muscles are atrophied and partially replaced by fat. No soft tissue mass. Assessment & Plan Assessment & Plan (1) Degenerative joint disease (DJD) of lumbar spine: Code(s): M47.816 - Spondylosis without myelopathy or radiculopathy, lumbar region Category: Medical Qualifiers: Spinal osteoarthritis complication: with myelopathy Qualified Code(s): M47.16 - Other spondylosis with myelopathy, lumbar region (2) Spondylolisthesis, lumbosacral region: Code(s): M43.17 - Spondylolisthesis, lumbosacral region Category: Medical (3) Sacralization of lumbar vertebra: Code(s): Q76.49 - Other congenital malformations of spine, not associated with scoliosis Category: Medical (4) Lumbosacral spondylosis: Code(s): M47.817 - Spondylosis without myelopathy or radiculopathy, lumbosacral region Category: Medical (5) Lumbar spine pain: Code(s): M54.50 - Low back pain, unspecified Category: Medical Plan Schedule Bilateral L3-L4-L5 Medial Branch RFA with sedation and fluoroscopy axial low back pain given good results with diagnostic lumbar medial branch blocks, which resolved in complete pain relief for 6 hours after procedure and pain gradually returning to baseline next day. Expectations, risks and benefits were reviewed. Patient is aware he will be contacted to schedule this procedure. We also discussed peripheral nerve stimulation with Sprint device which patient declined. 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 All questions were answered and the patient is in agreement of plan. Follow-up after RFA procedure and sooner as needed. Coding Level of Care Code Est Pt Level 4 (02791) Complex EM visit Add On G2211 Diagnoses Osteoarthritis of lumbar spine with myelopathy M47.16 Spinal osteoarthritis complication: with myelopathy Spondylolisthesis, lumbosacral region M43.17 Sacralization of lumbar vertebra Q76.49 Lumbosacral spondylosis M47.817 Lumbar spine pain M54.50
[2024-04-05 11:16] VITALS: BP 167/77; PULSE 83; O2SAT 97; BMI 32.0
== END 2024-04-05 11:31 | disposition home or self-care (01) ==
PROVIDERS: PCP Registered Nurse; Visit Provider Nurse Practitioner Family
DX: M47.16 Other spondylosis with myelopathy, lumbar region (principal); M43.17 Spondylolisthesis, lumbosacral region; Q76.49 Other congenital malformations of spine, not associated with scoliosis; M47.817 Spondylosis without myelopathy or radiculopathy, lumbosacral region; M54.50 Low back pain, unspecified
CPT/HCPCS: 99214

== ENCOUNTER → 2024-04-05 11:10 | Outpatient (BNVA) | payer MEDICAID, SELFPAY | PROVIDERS: PCP Registered Nurse; Visit Provider Nurse Practitioner Family | DX: M47.816 Spondylosis without myelopathy or radiculopathy, lumbar region (principal); M47.16 Other spondylosis with myelopathy, lumbar region; M47.817 Spondylosis without myelopathy or radiculopathy, lumbosacral region; M54.50 Low back pain, unspecified; Q76.49 Other congenital malformations of spine, not associated with scoliosis | CPT/HCPCS: 99212 ==

== ENCOUNTER 2024-04-26 14:01 | Outpatient (AMB) | payer MEDICAID, SELFPAY ==
--- NOTE | 2024-04-26 14:06 | A.OFFPC_ITS ---
Vital Signs 3 04/26/24 14:07 Height 5 ft 2 in Weight 166 lb 6 oz BMI 30.4 BP 120/72 Blood Pressure Location Lt brachial Position Sitting Pulse 72 Pulse Source Pulse Oximeter Temp 97.7 F Temp Source Temporal Artery Scan Pulse Oximetry (%) 98 Oxygen Delivery Method Room Air Intake Visit Reasons: Memory loss Intake Note: The patient is here today for an overdue physical exam, and the daughter would like to discuss a recent concern regarding the patient: memory loss. Upholstered Goods Crafter Required: No Upholstered Goods Crafter Name: Pt refused/daughter interpret Accompanied by: Daughter Allergies No Known Allergies Allergy (Verified 04/26/24 14:34) Medication List - Last Reconciled 04/26/24 by Javier Malloy PA-C acetaminophen (Tylenol Extra Strength) 1,000 mg (2 x 500 mg) PO QID PRN blood pressure monitor As directed-testing once a day as needed cetirizine 10 mg PO DAILY PRN 90 days ibuprofen 800 mg PO Q8H levothyroxine 50 mcg PO DAILY 90 days lidocaine 5% 1 patch topical DAILY 30 days lisinopril 5 mg PO DAILY 90 days naloxone 4 mg/actuation (Narcan) 4 mg intranasal Q2M PRN pantoprazole 20 mg PO DAILY tizanidine 2 mg PO ONCE PRN 10 days tramadol 50 mg PO Q8H PRN 7 days Tobacco use date assessed: 04/26/24 Fall risk assessment: No Falls in past year Last assessed Fall Risk: 04/26/24 Dental Screening Dental Screen Date: 04/26/24 Did you have a dental visit in the last 12 months?: No Did you have a dental problem in the last 6 months where you did not have access to dental care?: No Was dental information given to patient?: Patient has dentist HPI Memory loss 2 HPI0 Details Patient is a 68 year male here today for a routine annual physical. Today presrent with his daughter whom help with interpretation. ? Patient has a past medical history significant s/o colectomy ( 2008) chronic lumbar spine pain , ? TB in his liver, Concern--> The patient reports anal pain that started about a month ago. The pain is intermittent with a sensation of pressure that subsides within five minutes. He denies any associated bleeding, discharge, or pain during bowel movements. There has been no diagnosis or treatment specifically for the anal pain yet. Additionally, the patient has a large lipoma on his back which has been growing. It has not been previously removed, and the increase in size is of recent concern. He has not experienced any pain or discomfort from the lipoma Also concerns over Otilio his memory has been brought up. Family reports he has been a bit more forgetful as of lately. Will try for MRI brain to start workup and refer to Neurology. We did discuss perhaps trying Aricept to help slow progression with possible dementia though family will like to hold off on medication for now.. .. . Hypertension: Blood pressure acceptable today in office. Continues on low-dose lisinopril with good effect. .. Hypothyroidism: Continues on levothyroxine 50 mcg. Will recheck TSH to assure normal. Has lost weight since last office visit .. Impaired glucose metabolism: The patient is also noted to have prediabetes with an A1c of 5.9-6.0, indicating a need for lifestyle modifications in diet. He reports consuming carbohydrate-rich foods that may exacerbate his condition. Vaccines: Up-to-date with flu, COVID and tetanus. Will need pneumonia vaccine Colorectal cancer screening he reports getting a colonoscopy at [facility] and reports it was negative.? [facility] Medical History Hepatitis C Impaired glucose metabolism Social History Housing: House Alcohol intake: former Year quit: 1999 Patient Tobacco Use Status: Never used Tobacco Tobacco use type: Cigarette e-Cigarette/Vaping Use: Never Used Second Hand Smoke Exposure: No service: No Current occupational status: employed Current occupation: [employer] Cognitive needs: No Hearing needs: No Vision needs: Yes (wear glasses) Questionnaire PHQ-9 Over the last 2 weeks, how often have you been bothered by any of the following problems? 1. Little interest or pleasure in doing things: not at all 2. Feeling down, depressed, or hopeless: not at all 3. Trouble falling or staying asleep, or sleeping too much: not at all 4. Feeling tired or having little energy: not at all 5. Poor appetite or overeating: not at all 6. Feeling bad about yourself - or that you are a failure or have let yourself or your family down: not at all 7. Trouble concentrating on things, such as reading the newspaper or watching television: not at all 8. Moving or speaking so slowly that other people could have noticed. Or the opposite - being so fidgety or restless that you have been moving around a lot more than usual: not at all 9. Thoughts that you would be better off or of hurting yourself in some way: not at all Total score: 0 Depression Screening Interpretation: Negative Depression Screening Done: Yes [id number] - PHQ-9 Billing: Yes Source: Developed by Drs. Collin Rosen, Tenisha Mcconnell, Blade Atkinson and colleagues, with an educational josemanuel from [employer]. Thrive Questionnaire Date Thrive assessed: 04/26/24 I am a: Patient What is your living situation today?: I have a steady place to live Within the past 12 months, did the food you bought not last and you didn't have the money to get more?: Never true Within the past 12 months, did you worry whether your food would run out before you got money to buy more?: Never true Do you have trouble paying for medicines?: No Do you have trouble getting transportation to medical appointments?: No Do you have trouble paying your heating and electricity bill?: No Do you have trouble taking care of your child, family member or friend?: No Do you have trouble with day-to-day activities such as bathing, preparing meals, shopping, managing finances, etc.?: No Are you currently unemployed and looking for a job?: No Are you interested in more education?: No Please select the resources that you would like help with: None Currently or been in a relationship where the following occur: No concerns reported THRIVE Score: 0 AUDIT C Alcohol Use Questionnaire (AUDIT-C) 1. How often do you have a drink containing alcohol?: Never 3. How often do you have six or more drinks on one occasion?: Never Total Score: 0 AMRS-7 AMB Questionnaire MARS-7 Date MARS - 7 assessed: 04/26/24 Feeling nervous, anxious, or on edge: 0 = Not at all Not being able to stop or control worryin = Not at all Worrying too much about different things: 0 = Not at all Trouble relaxin = Not at all Being so restless that it is hard to sit still: 0 = Not at all Becoming easily annoyed or irritable: 0 = Not at all Feeling afraid as if something awful might happen: 0 = Not at all Total MARS-7 score (0-4 normal; 5-9 mild; 10-14 moderate; 15-21 severe): 0 Source: Developed by Drs. Collin Rosen, Tenisha Mcconnell, Blade Atkinson and colleagues, with an educational josemanuel from [employer]. MARS-7 Assessment Billing MARS-7 Assessment Tool: MARS-7 Assessment 21711 Review of Systems Const Denies body aches, Denies chills, Denies excessive sweating, Denies fatigue, Denies fever(s) and Denies headache(s) Eyes Denies blurry vision ENT Denies dysphagia, Denies vertigo, Denies dizziness, Denies headache(s), Denies hearing loss and Denies tinnitus Card Denies chest pain, Denies chest pain with activity, Denies syncope, Denies irregular heart rhythm and Denies dyspnea Resp Denies chest congestion, Denies cough, Denies hemoptysis, Denies dyspnea and Denies wheezing GI Denies abdominal pain, Denies melena, Denies hematochezia, Denies coffee ground emesis, Denies dysphagia, Denies diarrhea, Denies nausea and Denies vomiting Denies difficulty urinating, Denies dysuria, Denies urinary frequency, Denies urinary hesitancy and Denies urinary urgency Musc Denies arthralgias, Denies limited range of motion, Denies muscle cramps and Denies muscle weakness Skin/Breast Denies rash and Denies skin ulcer Neuro Denies Abnormal speech present, Denies confusion, Denies vertigo, Denies dizziness, Denies syncope, Denies headache(s), Denies memory loss and Denies seizure-like activity Psych Denies anxiety, Denies confusion, Denies depression, Denies memory loss, Denies panic attacks and Denies paranoia Endo Denies excessive sweating, Denies fatigue, Denies flushing, Denies polydipsia and Denies polyuria Aller/Immun Denies wheezing Physical exam (Primary Care) Vital Signs: Last Vital Signs Temp 97.7 F 04/26/24 14:07 Pulse 72 04/26/24 14:07 BP 120/72 04/26/24 14:07 Pulse Ox 98 04/26/24 14:07 Oxygen Delivery Method Room Air 04/26/24 14:07 BMI result Body Mass Index 30.4 Tobacco/Smoking Status: Tobacco use Status Tobacco use date assessed 04/26/24 04/26/24 14:24 Patient Tobacco Use Status Never used Tobacco 04/26/24 14:07 Tobacco use type Cigarette 04/26/24 14:07 e-Cigarette/Vaping Use Never Used 04/26/24 14:07 PHQ-9: PHQ-9 Score PHQ-9: Total score 0 04/26/24 14:35 Depression Screening Interpretation: Negative Thrive Assessment: Date of Thrive Assessment Date Thrive assessed 04/26/24 04/26/24 14:24 Currently or been in a relationship where the following occur: No concerns reported Const General: cooperative, comfortable, no acute distress, alert and awake; No confusion Orientation/consciousness: oriented to person, oriented to place, patient oriented x3 and No confusion HENMT Head: Yes normocephalic Ears: external ears normal and TM's normal bilaterally Face and sinus: No sinus tenderness Mouth: Normal oral and palatal mucosa present and tongue normal Teeth and gingiva: dentition normal and gingiva normal Throat: Yes posterior oropharynx normal, Yes tonsils normal and Yes uvula midline Eyes Conjunctivae: conjunctivae normal Sclerae: sclerae normal Pupils: Equal, round and reactive pupils present EOM: EOMs intact bilaterally Direct Ophthalmoscopy: No no photophobia Neck Neck: Yes no lymphadenopathy, No tender and Yes no JVD Thyroid: Thyroid normal Carotids: no bruits Chest Chest palpation & inspection: no tenderness Resp Effort & Inspection: normal respiratory effort, no audible wheezes, not labored and no stridor Auscultation: no crackles, no rales, no rhonchi and no wheezes Cardio Jugular venous distension: no JVD Rate: regular rate, not bradycardic and not tachycardic Rhythm: regular rhythm Bruits: no carotid bruits Peripheral pulses: Peripheral pulses 2+ throughout GI Inspection: Yes normal to inspection, No abdominal wall ecchymosis and No visible herniation Palpation (GI): Soft to palpation, nontender, no guarding, not rigid and No hepatosplenomegaly present Auscultation: normoactive bowel sounds General: Yes no CVA tenderness Back/Spine/Pelvis Other: Back: no CVA tenderness and No back tenderness Cervical Spine: cervical ROM normal Thoracic/Lumbar Spine: thoracic and lumbar spine normal to inspection, straight leg raise negative bilaterally, No thoraco-lumbar ROM limited and No lumbar spinal tenderness Skin Lesions: no lesions Rashes: no rashes Wounds: no wounds Neuro General: oriented to person, oriented to place, patient oriented x3, CN's II-XI intact bilaterally and No confusion Cranial nerves: Yes Equal, round and reactive pupils present and Yes Normal accommodation reflex present Cognition (Neuro): normal cognition Speech: No Abnormal speech present Gait exam (Neuro): Normal gait present Motor exam (neuro): 5/5 motor strength present throughout Extrem Right upper extremity: full ROM; no cyanosis Left upper extremity: full ROM; no cyanosis Right lower extremity: no edema Left lower extremity: no edema Psych Appearance: grossly normal Mental Status: mental status grossly normal Affect: normal affect Attitude: cooperative Thought process: Normal thought process present Immunizations pneumoc 20-lety conj-dip cr(PF) 0.5 mL IM syringe Performing Provider: Javier Malloy PA-C [place] [facility] [facility] [place] [facility] Administered by: DESTIN Melton on 04/26/24 14:57 2 Dose Route Admin Location Dispensed Lot Number Expiration Date [facility] Director Of Exhibit Development 0.5 mL IM Left Deltoid 0.5 mL [id number] 07/12/25 [employer]/PFIZER 2 VIS Given Date VIS Provided VIS Publication Date 04/26/24 Single Vaccine 21 Eligibility Eligibility Date Funding Source Not [facility] Eligible 04/26/24 Private Coding Level of Care Code Est Pt Prev Care >65y(69232) Diagnoses Annual physical exam Z00.00 Primary hypertension I10 Hypertension type: primary hypertension Rectal pain K62.89 Memory impairment R41.3 Mixed hyperlipidemia E78.2 Hyperlipidemia type: mixed hyperlipidemia Lipoma of back D17.1 Additional Codes MARS-7 Assessment Billing - MARS-7 Assessment Tool: MARS-7 Assessment 40503 ([id number]) PHQ-9 - 90354 - PHQ-9 Billing: Yes ([id number]) Assessment & Plan Assessment & Plan (1) Annual physical exam: Code(s): Z00.00 - Encounter for general adult medical examination without abnormal findings Category: Medical Plan: As per HPI (2) HTN (hypertension): Code(s): I10 - Essential (primary) hypertension Category: Medical Qualifiers: Hypertension type: primary hypertension Qualified Code(s): I10 - Essential (primary) hypertension Plan: Patient's blood pressure today in office acceptable. Will continue his current dose of antihypertensive medication with blood pressure to be below 140/90 (3) Rectal pain: Code(s): K62.89 - Other specified diseases of anus and rectum Category: Medical Plan: Reports 2 month history of rectal pain. No bleeding or urinary symptoms. PSA has been stable. (4) Memory impairment: Code(s): R41.3 - Other amnesia Category: Medical Plan: As per HPI there has been concerns about patient's progressive memory issues. Family willing to start workup with MRI and neurology referral. They do report a family history of Alzheimer's disease. We did discuss medication though like to hold off on starting medication for now. (5) HLD (hyperlipidemia): Code(s): E78.5 - Hyperlipidemia, unspecified Category: Medical Qualifiers: Hyperlipidemia type: mixed hyperlipidemia Qualified Code(s): E78.2 - Mixed hyperlipidemia Plan: Has a history of hyperlipidemia. Now controlled with dietary modifications. Will recheck lipid panel to ensure normal total cholesterol and LDL (6) Lipoma of back: Code(s): D17.1 - Benign lipomatous neoplasm of skin and subcutaneous tissue of trunk Category: Medical Plan: Has a very large lipomatous like lesion over the right upper back that has been evident for years. No reported pain or disability due to this. Will like to see general surgeon to discuss possible removal. Orders: Orders 2 Comprehensive [place]. Panel Fast Today R73.09 - Other abnormal glucose Microalbumin, Random (w Creat) Today I10 - Essential (primary) hypertension Prostate Specific Antigen Scr Today I10 - Essential (primary) hypertension, Z12.5 - Encounter for screening for malignant neoplasm of prostate TSH reflex Free T4 Today R79.89 - Other specified abnormal findings of blood chemistry MR head/brain wo con Today R41.3 - Other amnesia Hemoglobin A1c Today R73.09 - Other abnormal glucose Pneumococcal 20 Immunization Today K62.89 - Other specified diseases of anus and rectum, Z23 - Encounter for immunization Referrals 2 Neurology Referral R41.3 - Other amnesia General Surgery Referral D17.1 - Benign lipomatous neoplasm of skin and subcutaneous tissue of trunk Medications: New 2 pneumoc 20-lety conj-dip cr(PF) 0.5 mL IM ONCE 0.5 mL 0RF K62.89 - Other specified diseases of anus and rectum, Z23 - Encounter for immunization
[2024-04-26 14:07] VITALS: BP 120/72; PULSE 72; TEMP 36.5; O2SAT 98; BMI 30.4
== END 2024-04-26 15:51 | disposition home or self-care (01) ==
PROVIDERS: PCP Registered Nurse; Visit Provider Physician Assistant
DX: Z00.00 Encounter for general adult medical examination without abnormal findings (principal); I10 Essential (primary) hypertension; K62.89 Other specified diseases of anus and rectum; R41.3 Other amnesia; E78.2 Mixed hyperlipidemia; D17.1 Benign lipomatous neoplasm of skin and subcutaneous tissue of trunk; Z23 Encounter for immunization

== ENCOUNTER 2024-04-26 14:01 | Outpatient (REF) | payer MEDICAID, SELFPAY | END 2024-04-26 14:02 | disposition home or self-care (01) | LOC: HO.LAB 14:01 | PROVIDERS: PCP Registered Nurse; Visit Provider Physician Assistant | DX: Z00.00 Encounter for general adult medical examination without abnormal findings (principal); Z23 Encounter for immunization; I10 Essential (primary) hypertension; K62.89 Other specified diseases of anus and rectum; R41.3 Other amnesia; E78.2 Mixed hyperlipidemia; D17.1 Benign lipomatous neoplasm of skin and subcutaneous tissue of trunk | CPT/HCPCS: 90471; 90677; 96127; 99397 ==

== ENCOUNTER 2024-04-27 09:49 | Outpatient (REF) | payer MEDICAID, SELFPAY ==
[2024-04-27 10:37] LABS: Estimated Average Glucose 123 mg/dL; Hemoglobin A1C 153.7795 umol/L; Hemoglobin A1c % 5.9 % (<6.0); Total Hemoglobin (HGBA1C) 3746.1557 umol/L
[2024-04-27 11:17] LABS: Prostate Specific Antigen Scr 4.41 ng/mL (<0.05-4.0)
[2024-04-27 11:20] LABS: Creatinine Urine 89.89 mg/dL; Microalbum/Creatinine Ratio Ur 14.4 ug/mg cr (<30)
[2024-04-27 11:24] LABS: Alanine Aminotransferase 34 U/L (0-40); Albumin Level 3.9 g/dL (3.5-5.0); Alkaline Phosphatase 132 U/L (39-117); Anion Gap 8 (12-20); Aspartate Amino Transferase 29 U/L (5-37); Bilirubin Total 0.5 mg/dL (0.0-1.0); Blood Urea Nitrogen 12 mg/dL (9-16); Calcium 8.5 mg/dL (8.4-10.2); Carbon Dioxide 25 mmol/L (22-29); Chloride 112 mmol/L (96-108); Estimated Glomerular Filt Rate > 60; Glucose Fasting 95 mg/dL (60-99); Potassium 4.1 mmol/L (3.3-5.1); Sodium 141 mmol/L (135-145); TSH reflex Free T4 0.87 uIU/mL (0.32-4.0); Total Protein 7.4 g/dL (6.5-8.0)
== END 2024-04-27 09:50 | disposition home or self-care (01) ==
LOC: HO.LAB 09:49
PROVIDERS: PCP Physician Assistant; Visit Provider Physician Assistant
DX: R73.09 Other abnormal glucose (principal); I10 Essential (primary) hypertension; Z12.5 Encounter for screening for malignant neoplasm of prostate; R79.89 Other specified abnormal findings of blood chemistry
CPT/HCPCS: 36415; 80053; 82043; 82570; 83036; 84153; 84443

== ENCOUNTER → 2024-04-30 09:06 | Outpatient (BNV) | payer MEDICAID, SELFPAY | PROVIDERS: PCP Physician Assistant; Visit Provider Radiology Diagnostic Radiology | DX: R41.3 Other amnesia (principal) | CPT/HCPCS: 70551 ==

== ENCOUNTER 2024-04-30 09:20 | Outpatient (REF) | payer MEDICAID, SELFPAY ==
--- NOTE | ~2024-04-30 | MR_ITS ---
EXAMINATION: MR BRAIN WITHOUT IV CONTRAST HISTORY: R41.3 - Other amnesia TECHNIQUE: Sagittal T1, coronal FLAIR, and axial T1, FLAIR, T2, gradient echo, and diffusion weighted MR images of the brain were obtained. COMPARISON: None FINDINGS: There is artifact from dental hardware. The brain parenchyma is unremarkable, demonstrating normal vallejo/white differentiation. No foci of abnormal signal intensity are identified. The ventricular system is normal in size and configuration. There is no mass effect or midline shift. No intra or extra-axial fluid collections are identified. There are no foci of restricted diffusion. Normal vascular flow voids are noted in the basilar and carotid arteries. The visualized paranasal sinuses are clear. MR/MR head/brain wo con IMPRESSION: Unremarkable MRI of the brain without contrast. Electronically signed by: Collin Galvez MD 05/02/2024 08:24 AM MELISSA
== END 2024-04-30 09:21 | disposition home or self-care (01) ==
LOC: HO.MRI 09:20
PROVIDERS: PCP Physician Assistant; Visit Provider Physician Assistant
DX: R41.3 Other amnesia (principal)
CPT/HCPCS: 70551

== ENCOUNTER 2024-05-05 09:03 | Outpatient (AMB) | payer MEDICAID, SELFPAY ==
--- NOTE | 2024-05-05 09:04 | A.OFFVIS_ITS ---
Vital Signs 05/05/24 09:05 Height 5 ft 2 in Weight 170 lb BMI 31.1 Intake Visit Reasons: Large lipoma, rectal pain Intake Note: This patient was referred by Javier Malloy for large lipoma, rectal pain. Pt c/o; large lipoma right side of back, no pain. Gis Programmer Required: No Accompanied by: Other Relationship Allergies No Known Allergies Allergy (Verified 05/05/24 09:16) Medication List - Last Reconciled 05/05/24 by Hakeem Ross MD acetaminophen (Tylenol Extra Strength) 1,000 mg (2 x 500 mg) PO QID PRN blood pressure monitor As directed-testing once a day as needed cetirizine 10 mg PO DAILY PRN 90 days finasteride 5 mg PO DAILY 90 days ibuprofen 800 mg PO Q8H levothyroxine 50 mcg PO DAILY 90 days lidocaine 5% 1 patch topical DAILY 30 days lisinopril 5 mg PO DAILY 90 days naloxone 4 mg/actuation (Narcan) 4 mg intranasal Q2M PRN pantoprazole 20 mg PO DAILY tizanidine 2 mg PO ONCE PRN 10 days tramadol 50 mg PO Q8H PRN 7 days HPI HPI Large lipoma, rectal pain: Details: 68-year-old male referred for a large lipoma on the back. The patient says that he has had this lump on his back for about 4 years now. This has been increasing in size. He denies any pain. He denies any discharge. He does seem to describe some discomfort now because of the large size of the mass. [facility] Medical History Hepatitis C Impaired glucose metabolism Surgical History History of hernia surgery History of cholecystectomy History of colon surgery Social History Housing: House Alcohol intake: former Year quit: 1999 Patient Tobacco Use Status: Never used Tobacco Tobacco use type: Cigarette e-Cigarette/Vaping Use: Never Used Second Hand Smoke Exposure: No service: No Current occupational status: employed Current occupation: [employer] Cognitive needs: No Hearing needs: No Vision needs: Yes (wear glasses) Review of Systems Const Denies chills and Denies fever(s) Card Denies chest pain, Denies dyspnea and Denies dyspnea on exertion Resp Denies cough, Denies dyspnea and Denies dyspnea on exertion GI Denies hematochezia and Denies change in bowel habits Denies hematuria and Denies difficulty urinating Musc Denies back pain and Denies limited range of motion Neuro Denies focal weakness and Denies convulsions Psych Denies depression and Denies mood swings Physical Exam Vital Signs: BMI result Body Mass Index 31.1 Const General: comfortable and no acute distress Orientation/consciousness: patient oriented x3 Neck Neck: Yes no lymphadenopathy Resp Auscultation: clear to auscultation bilaterally Cardio Rhythm: regular rhythm GI Palpation (GI): Soft to palpation, nontender and no guarding Back/Spine/Pelvis Other: Large lipoma, well-defined, about 13 cm on the right upper back Neuro General: patient oriented x3 Assessment & Plan Assessment & Plan (1) Lipoma of back: Code(s): D17.1 - Benign lipomatous neoplasm of skin and subcutaneous tissue of trunk Category: Medical Plan: He has a large lipoma on the back as described above. He wants this excised. I explained the technique of excision which will be done the anesthesia in view of the large size of the lipoma. I reviewed the risks including but not limited to bleeding and infections, as well as the benefits and alternatives. I reviewed with him what to expect postoperatively. He says he understands and wants to proceed His referral mentioned that he had some rectal pain as well. He is denying this at this time. He says he does not have any problems with this anus. Coding Level of Care Code New Pt Level 3 (55086) Diagnoses Lipoma of back D17.1
[2024-05-05 09:05] VITALS: BMI 31.1
== END 2024-05-05 09:22 | disposition home or self-care (01) ==
PROVIDERS: PCP Physician Assistant; Visit Provider Surgery
DX: D17.1 Benign lipomatous neoplasm of skin and subcutaneous tissue of trunk (principal)
CPT/HCPCS: 99203

== ENCOUNTER → 2024-05-05 09:03 | Outpatient (BNVA) | payer MEDICAID, SELFPAY | PROVIDERS: PCP Physician Assistant; Visit Provider Surgery | DX: D17.1 Benign lipomatous neoplasm of skin and subcutaneous tissue of trunk (principal) | CPT/HCPCS: 99202 ==

== ENCOUNTER 2024-05-11 15:28 | Outpatient (AMB) | payer MEDICAID, SELFPAY ==
--- NOTE | 2024-05-11 15:34 | MHC.PC.OV ---
Vital Signs 05/11/24 15:35 Height 5 ft 2 in Weight 170 lb 2 oz BMI 31.1 BP 142/82 H Blood Pressure Location Lt brachial Position Sitting Pulse 78 Pulse Source Pulse Oximeter Temp 97.1 F Temp Source Temporal Artery Scan Pulse Oximetry (%) 97 Oxygen Delivery Method Room Air Intake Visit Reasons: 6 months Security Controls Assessor Required: No Security Controls Assessor Name: Pt refused daughter interpre Accompanied by: Daughter Allergies No Known Allergies Allergy (Verified 05/11/24 15:46) Medication List - Last Reconciled 05/11/24 by Javier Malloy PA-C acetaminophen (Tylenol Extra Strength) 1,000 mg (2 x 500 mg) PO QID PRN blood pressure monitor As directed-testing once a day as needed cetirizine 10 mg PO DAILY PRN 90 days finasteride 5 mg PO DAILY 90 days ibuprofen 800 mg PO Q8H levothyroxine 50 mcg PO DAILY 90 days lidocaine 5% 1 patch topical DAILY 30 days lisinopril 5 mg PO DAILY 90 days naloxone 4 mg/actuation (Narcan) 4 mg intranasal Q2M PRN pantoprazole 20 mg PO DAILY tizanidine 2 mg PO ONCE PRN 10 days tramadol 50 mg PO Q8H PRN 7 days Tobacco use date assessed: 04/26/24 Dental Screening Dental Screen Date: 04/26/24 HPI 6 months HPI Details Patient is a 68 year male here today for a follow-up visit Today presrent with his daughter whom help with interpretation. ? Patient has a past medical history significant s/o colectomy ( 2008) chronic lumbar spine pain , ? TB in his liver, Has followed up with general surgeon in his going to get large lipoma over his upper back removed.. Concern--> Have noted slightly elevated PSA- has started finasteride recently. Does report having nocturia. We did offer him also tamsulosin to help with complete bladder emptying . Lumbar spine pain: He is followed by pain management here in [place], he is due for lumbar injections though is awaiting a call to set up this appointment. .. . Hypertension: Blood pressure acceptable today in office. Continues on low-dose lisinopril with good effect. .. Hypothyroidism: Continues on levothyroxine 50 mcg. Will recheck TSH to assure normal. Has lost weight since last office visit .. Impaired glucose metabolism: The patient is also noted to have prediabetes with an A1c of 5.9-6.0, indicating a need for lifestyle modifications in diet. He reports consuming carbohydrate-rich foods that may exacerbate his condition. [facility] Medical History Hepatitis C Impaired glucose metabolism Surgical History History of hernia surgery History of cholecystectomy History of colon surgery Social History Housing: House Alcohol intake: former Year quit: 1999 Patient Tobacco Use Status: Never used Tobacco Tobacco use type: Cigarette e-Cigarette/Vaping Use: Never Used Second Hand Smoke Exposure: No service: No Current occupational status: employed Current occupation: [employer] Cognitive needs: No Hearing needs: No Vision needs: Yes (wear glasses) Questionnaire PHQ-9 Over the last 2 weeks, how often have you been bothered by any of the following problems? 1. Little interest or pleasure in doing things: not at all 2. Feeling down, depressed, or hopeless: not at all 3. Trouble falling or staying asleep, or sleeping too much: not at all 4. Feeling tired or having little energy: not at all 5. Poor appetite or overeating: not at all 6. Feeling bad about yourself - or that you are a failure or have let yourself or your family down: not at all 7. Trouble concentrating on things, such as reading the newspaper or watching television: not at all 8. Moving or speaking so slowly that other people could have noticed. Or the opposite - being so fidgety or restless that you have been moving around a lot more than usual: not at all 9. Thoughts that you would be better off or of hurting yourself in some way: not at all Total score: 0 Depression Screening Interpretation: Negative Depression Screening Done: Yes 22512 - PHQ-9 Billing: Yes Source: Developed by Drs. Collin Rosen, Tenisha Mcconnell, Blade Atkinson and colleagues, with an educational josemanuel from [employer]. Thrive Questionnaire Date Thrive assessed: 05/11/24 I am a: Patient What is your living situation today?: I have a steady place to live Within the past 12 months, did the food you bought not last and you didn't have the money to get more?: Never true Within the past 12 months, did you worry whether your food would run out before you got money to buy more?: Never true Do you have trouble paying for medicines?: No Do you have trouble getting transportation to medical appointments?: No Do you have trouble paying your heating and electricity bill?: No Do you have trouble taking care of your child, family member or friend?: No Do you have trouble with day-to-day activities such as bathing, preparing meals, shopping, managing finances, etc.?: No Are you currently unemployed and looking for a job?: No Are you interested in more education?: No Please select the resources that you would like help with: None Currently or been in a relationship where the following occur: No concerns reported THRIVE Score: 0 AUDIT C Alcohol Use Questionnaire (AUDIT-C) 1. How often do you have a drink containing alcohol?: Never 3. How often do you have six or more drinks on one occasion?: Never Total Score: 0 MARS-7 AMB Questionnaire MARS-7 Date MARS - 7 assessed: 05/11/24 Feeling nervous, anxious, or on edge: 0 = Not at all Not being able to stop or control worryin = Not at all Worrying too much about different things: 0 = Not at all Trouble relaxin = Not at all Being so restless that it is hard to sit still: 0 = Not at all Becoming easily annoyed or irritable: 0 = Not at all Feeling afraid as if something awful might happen: 0 = Not at all Total MARS-7 score (0-4 normal; 5-9 mild; 10-14 moderate; 15-21 severe): 0 Source: Developed by Drs. Collin Rosen, Tenisha Mcconnell, Blade Atkinson and colleagues, with an educational josemanuel from [employer]. MARS-7 Assessment Billing MARS-7 Assessment Tool: MARS-7 Assessment 76714 Review of Systems Const Denies headache(s) Eyes Denies loss of vision ENT Denies vertigo, Denies dizziness, Denies headache(s) and Denies sore throat Card Denies chest pain, Denies leg edema and Denies lightheadedness Resp Denies cough, Denies hemoptysis and Denies wheezing GI Denies abdominal pain, Denies melena, Denies constipation, Denies diarrhea and Denies vomiting Denies dysuria, Denies urinary frequency and Denies urinary urgency Musc Denies arthralgias, Denies joint swelling, Denies numbness and Denies tingling Neuro Denies Abnormal speech present, Denies behavioral changes, Denies vertigo, Denies dizziness, Denies headache(s), Denies loss of vision, Denies memory loss, Denies numbness and Denies tingling Psych Denies anxiety, Denies behavioral changes, Denies depression, Denies memory loss and Denies panic attacks Chris/Lymph Denies easy bleeding and Denies easy bruising Aller/Immun Denies wheezing Physical exam (Primary Care) Vital Signs: Last Vital Signs Temp 97.1 F 05/11/24 15:35 Pulse 78 05/11/24 15:35 BP 142/82 H 05/11/24 15:35 Pulse Ox 97 05/11/24 15:35 Oxygen Delivery Method Room Air 05/11/24 15:35 BMI result Body Mass Index 31.1 Tobacco/Smoking Status: Tobacco use Status Tobacco use date assessed 04/26/24 05/11/24 15:37 Patient Tobacco Use Status Never used Tobacco 05/11/24 15:37 Tobacco use type Cigarette 05/11/24 15:37 e-Cigarette/Vaping Use Never Used 05/11/24 15:37 PHQ-9: PHQ-9 Score PHQ-9: Total score 0 05/11/24 15:47 Depression Screening Interpretation: Negative Thrive Assessment: Date of Thrive Assessment Date Thrive assessed 05/11/24 05/11/24 15:37 Currently or been in a relationship where the following occur: No concerns reported Const General: healthy appearing, no acute distress, alert and awake Nutritional Appearance: well nourished Orientation/consciousness: oriented to person, oriented to place and oriented to time HENMT Ears: TM's normal bilaterally General nose exam: Normal nasal mucous membranes and turbinates present Eyes Conjunctivae: conjunctivae normal Sclerae: sclerae normal Pupils: Equal, round and reactive pupils present Neck Neck: Yes no lymphadenopathy and Yes no JVD Thyroid: Thyroid normal Carotids: no bruits Resp Effort & Inspection: normal respiratory effort and not tachypneic Auscultation: no crackles, no rales, no rhonchi and no wheezes Cardio Rate: regular rate Rhythm: regular rhythm Heart sounds: no murmurs and normal S1 and S2 GI Palpation (GI): Soft to palpation, nontender, no hepatomegaly and no splenomegaly Auscultation: normal bowel sounds Skin General skin exam: no rashes or lesions noted and dry skin Neuro General: oriented to person, oriented to place and oriented to time Cranial nerves: Yes Equal, round and reactive pupils present Speech: No Abnormal speech present Gait exam (Neuro): Normal gait present Motor exam (neuro): no tremor noted Extrem Right upper extremity: full ROM Left upper extremity: full ROM Right lower extremity: full ROM; no edema Left lower extremity: full ROM; no edema Psych Mental Status: mental status grossly normal Speech and movement: Normal speech and movement present Affect: normal affect Attitude: cooperative Thought process: Normal thought process present Coding Level of Care Code Est Pt Level 4 (84953) Diagnoses Primary hypertension I10 Hypertension type: primary hypertension Mixed hyperlipidemia E78.2 Hyperlipidemia type: mixed hyperlipidemia Lipoma of back D17.1 Benign prostatic hyperplasia with nocturia N40.1; R35.1 Lower urinary tract symptom presence: symptoms present Lower urinary tract symptom detail: nocturia Additional Codes MARS-7 Assessment Billing - MARS-7 Assessment Tool: MARS-7 Assessment 94634 ([id number]) PHQ-9 - 16593 - PHQ-9 Billing: Yes ([id number]) Assessment & Plan Assessment & Plan (1) HTN (hypertension): Code(s): I10 - Essential (primary) hypertension Category: Medical Qualifiers: Hypertension type: primary hypertension Qualified Code(s): I10 - Essential (primary) hypertension Plan: Patient's blood pressure today in office acceptable. Will continue his current dose of antihypertensive medication with blood pressure to be below 140/90 (2) HLD (hyperlipidemia): Code(s): E78.5 - Hyperlipidemia, unspecified Category: Medical Qualifiers: Hyperlipidemia type: mixed hyperlipidemia Qualified Code(s): E78.2 - Mixed hyperlipidemia Plan: Has a history of hyperlipidemia. Now controlled with dietary modifications. Will recheck lipid panel to ensure normal total cholesterol and LDL (3) Lipoma of back: Code(s): D17.1 - Benign lipomatous neoplasm of skin and subcutaneous tissue of trunk Category: Medical Plan: Has followed up with general surgeon and will be due for lipoma removal in near future. (4) BPH (benign prostatic hyperplasia): Code(s): N40.0 - Benign prostatic hyperplasia without lower urinary tract symptoms Category: Medical Qualifiers: Lower urinary tract symptom presence: symptoms present Lower urinary tract symptom detail: nocturia Qualified Code(s): N40.1 - Benign prostatic hyperplasia with lower urinary tract symptoms; R35.1 - Nocturia Plan: Have noted elevated PSA. He does admit to some decreased urinary output and nocturia. We have started finasteride and will continue to follow PSA. We did discuss perhaps trying tamsulosin though patient would like to hold off on this medication for now. Orders: Orders Lipid Panel 05/11/24 E78.2 - Mixed hyperlipidemia Hemoglobin A1c 05/11/24 R73.09 - Other abnormal glucose Comprehensive [place]. Panel Fast 05/11/24 R73.09 - Other abnormal glucose Medications: Refilled tizanidine 2 mg PO ONCE PRN 10 tabs 0RF muscle spasticity 10 days M54.50 - Low back pain, unspecified
[2024-05-11 15:35] VITALS: BP 142/82; PULSE 78; TEMP 36.2; O2SAT 97; BMI 31.1
--- OUTSIDE RECORDS SUMMARY | 2024-05-11 17:25 | XMS_ITS | Clinical Summary ---
Author Organization [facility] Address [address] [place] [address] Care Team Providers Care Drywall Stripper Helper Name Role Phone Roselyn Cisse DMD Primary Care Provider [phone] Source Comments PLEASE NOTE, if this patient is a minor, it may be UNLAWFUL to discuss sensitive information that is contained in these records (such as FAMILY PLANNING, MENTAL HEALTH or SUBSTANCE ABUSE) with the minor patient's parent or other person without the patient's specific authorization.[facility] Allergies No known active allergies Medications No known medications Active Problems No known active problems Social History Tobacco Use Types Packs/Day Years Used Date Smoking Tobacco: Never Passive Smoke Exposure: Never Smokeless Tobacco: Never Tobacco Cessation:Counseling Given: Not Answered Social Connections Answer Date Recorded Connectedness 0 01/12/2024 Financial Resource Strain Answer Date R ecorded Financial Resource Strain 0 2021 Stress Answer Date Recorded Stress 0 04/11/2022 Physical Activity Answer Date Recorded Physical Activity 0 04/11/2022 Food Insecurity Answer Date Recorded Food 0 01/07/2024 Transportation Needs Answer Date Record ed Transportation 0 04/11/2022 Housing Stability Answer Date Recorded Housing 0 04/11/2022 Safety and Environment Answer Date Jeremi rded Safety 0 04/11/2022 Utilities Answer Date Recorded Utilities 0 04/11/2022 Employment Answer Date Recorded Stress 0 01/12/2024 Sex and Gender Information Value Date Recorded Sex Assigned at Not on file Legal Sex Male 10:16 AM PDT Gender Identity Not on file Sexual Orientation Not on file Last Filed Vital Signs Vital Sign Reading Time Taken Comments Blood Pressure 163/84 04/22/2023 4:18 PM EST Pulse 78 04/22/2023 4:18 PM EST Temperature - - Respiratory Rate - - Oxygen Saturation - - Inhaled Oxygen Concentration - - Weight - - Height - - Body Mass Index - - Plan of Treatment Health Maintenance Due Date Last Done Comments Diabetes Screening 1957 Hepatitis C Screening 1957 Lipid Screening 1957 Annual Preventive Care Visit 10/02/1975 Imm-DTaP/Tdap/Td (1 - Tdap) 1976 CT Colonography 2002 Colonoscopy 2002 Colorectal Cancer Screening 2002 FIT/gFOBT 2002 Fecal DNA 2002 Flexible Sigmoidoscopy 2002 Imm-Zoster, Recombinant (1 of 2) 10/02/2007 Falls Prevention 2022 Imm-Pneumococcal 65+ (1 of 1 - PCV) 2022 Odk-[id number]-69 (1 - 2023- season) 2023 Imm-Influenza (#1) 2023 Dental BW 03/27/2024 03/25/2023, 04/11/2022 Dental Examination 03/27/2024 03/25/2023, 04/11/2022 Dental Perio Charting 03/27/2024 03/25/2023, 022 Dental Prophy 03/27/2024 03/25/2023, 04/11/2022 Alcohol and Drug Screen 04/13/2024 Depression Annual Screen 04/13/2024 Hypertension Screening (#1) 04/21/2024 Tobacco Screening 05/20/2024 05/20/2023 Dental FMX/Pano 04/13/2027 04/11/2022 Procedures Procedure Name Priority Date/Time Associated Diagnosis Comments COMP PERIODONTAL EVALUATION - NEW/EST PATIENT Routine 03/25/2023 10:20 AM EST Encounter for dental examination BITEWINGS - FOUR RADIOGRAPHIC IMAGES Routine 03/25/2023 10:20 AM EST Encounter for dental examination Full PROPHYLAXIS - ADULT Routine 023 10:20 AM EST Encounter for dental examination Full PERIODIC ORAL EVALUATION ESTABLISHED PATIENT Routine 03/25/2023 10:20 AM EST Encounter for dental examination INTRAORAL - COMP SERIES OF RADIOGRAPHIC IMAGES Routine 04/11/2022 10:40 AM EST Need for prophylactic measure from Last 3 Months or Most Recently Relevant to Health Maintenance Insurance [employer] [place] [address] [place] Care Teams Drywall Stripper Helper Relationship Specialty Start Date End Date Roselyn Cisse DMD [address] [place] [address] PCP - General 06/22/20
--- OUTSIDE RECORDS SUMMARY | 2024-05-11 17:25 | XMS_ITS | Clinical Summary ---
Author Organization [address] [facility] Address [address] [place] [address] Phone Care Team Providers Care Pit Worker Power Shovel Name Role Phone Manny Mejias MD Primary Care Provider [phone] Allergies No known active allergies Medications Medication Sig Dispensed Refills Start Date End Date Status ammonium lactate (LAC-HYDRIN) 12 % lotion Apply to soles of feet daily. At night wear socks to bed 12/22/2023 Active omeprazole (PriLOSEC) [address] capsule Take 1 capsule (20 mg total) by mouth 1 (one) time each day. 01/16/2020 Active bisacodyL (Dulcolax, bisacodyl,) 5 mg EC tablet Take 4 tabs 1-2 hours prior to taking the bowel prep 04/17/2019 Active Active Problems Problem Noted Date Diagnosed Date Acid reflux 02/09/2024 BPH (benign prostatic hyperplasia) 02/09/2024 Herniated lumbar disc without myelopathy 024 Chronic cholecystitis with calculus 04/21/2019 Bilateral renal cysts 03/17/2019 Overview (02/09/2024): Seen on ultrasound 03/16/19. Recheck in one year. US future ordered placed. Simple cysts Cholelithiasis 03/17/2019 Overview (02/09/2024): Seen on ultrasound 03/16/19. Referral placed to general surgery. 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 Owusu, Back pain 02/10/2008 Herniated lumbar intervertebral disc 02/10/2008 Immunizations Name Administration Dates Next Due Hepatitis B (Ahnfdrq-O-Ksrwl , Recombivax HB-Adult) 19yo and older 03/01/2008 Influenza trivalent, 0.5mL, preservative free (Fluarix; FluLaval; Fluzone) ages 6mo and older (Afluria) 3 years and older 03/01/2008 PPD Test 03/01/2008 Tdap Tetanus diptheria acell ular pertussis (Boostrix; Adacel) 7yo and older 03/01/2008 Surgical History Surgery Date Site/Laterality Comments OTHER SURGICAL HISTORY PROCEDURE: ---- OTHER ----; COMMENT: Colon surgery at [facility], ?resection, for ?infection COLONOSCOPY 07/10/08 PROCEDURE: LA COLONOSCOPY STOMA DX INCLUDING COLLJ SPEC SPX; COMMENT: Up to cecum, good preparation, s/p partial colon resection, otherwise normal colon exam COLONOSCOPY 05/16/2019 PROCEDURE: HISTORICAL COLONOSCOPY; COMMENT: dr. valdez, 1 polyp, repeat 5 years Medical History Medical History Date Comments Herniated lumbar disc without myelopathy DX:Herniated lumbar disc without myelopathy Cholelithiasis 03/17/2019 DX:Cholelithiasi s; COMMENT: Seen on ultrasound 03/16/19. Recheck in one year- order for US already placed. Simple cysts Acid reflux DX:Acid reflux BPH (benign prostatic hyperplasia) DX:BPH (benign prostatic hyperplasia) Family History Medical History Relation Name Comments Diabetes Father Hypertension Mother Other: early CAD Mother at 50 years old from PNA ? Relation Name Status Comments Father Mother (Age 93) Social History Tobacco Use Types Packs/Day Years Used Date Smoking Tobacco: Never Smokeless Tobacco: Never Alcohol Use Standard Drinks/Week Comments No 0 (1 standard drink = 0.6 oz pur e alcohol) Sex and Gender Information Value Date Recorded Sex Assigned at Not on file Gender Identity Not on file Sexual Orientation Not on file Obstetrics History Last Filed Vital Signs Vital Sign Reading Time Taken Comments Blood Pressure - - Pulse - - Temperature - - Respiratory Rate - - Oxygen Saturation - - Inhaled Oxygen Concentration - - Weight 78 kg (172 lb) 12/22/2023 3:01 PM EDT Height - - Body Mass Index - - Plan of Treatment Health Maintenance Due Date Last Done Comments Pneumococcal Vaccine: 65+ Ye ars (1 of 2 - PCV) 10/02/1963 Zoster Vaccines (1 of 2) 10/02/2007 Hepatitis B Vaccines (2 of 3 - 19+ 3-dose series) 03/29/2008 03/01/2008 DTaP,Tdap,and Td Vaccines (2 - Td or Tdap) 03/01/2018 03/01/2008 Abdominal Aortic Aneurysm (A AA) Screen 03/22/2022 Cholesterol Screening (Lipid Panel) 03/22/2022 05/04/2015 Depression Screening 03/22/2022 Social Influencers of Health Screening 03/22/2022 Falls Risk Assessment 2022 COVID-19 Vaccine (1 - 2023-2 5 season) 2023 Influenza Vaccine (#1) 2023 03/01/2008 Colorectal Cancer Screening: Colonoscopy 05/16/2024 05/16/2019 RSV Immunization Patients 60 + Years Old (1 - 1-dose 75+ series) 2032 Hepatitis C Screening Completed 09/02/2012 HIB Vaccines Aged Out No longer eligi ble based on patient's age to complete this topic HPV Vaccines Aged Out No longer eligi ble based on patient's age to complete this topic Hepatitis A Vaccines Aged Out No long er eligible based on patient's age to complete this topic IPV Vaccines Aged Out No longer eligi ble based on patient's age to complete this topic MMR Vaccines Aged Out No longer eligi ble based on patient's age to complete this topic Meningococcal ACWY Vaccine Aged Out N o longer eligible based on patient's age to complete this topic RSV Immunization Patients Un danita 20 months Aged Out No longer eligible b ased on patient's age to complete this topic Varicella Vaccines Aged Out No longer eligible based on patient's age to complete this topic Procedures Procedure Name Priority Date/Time Associated Diagnosis Comments HM COLONOSCOPY Routine 05/16/2019 LIPID PANEL Routine 05/04/2015 HEPATITIS C SCREENING Routine 09/02/2012 from Last 3 Months or Most Recently Relevant to Health Maintenance Results * Colonoscopy (05/16/2019) Colonoscopy No interpretation , Abstracted Anatomical Region Laterality Modality Other Historical Provider MD BERNABE An * Lipid panel (05/04/2015) LDL/HDL Ratio 3 0 - 4 Triglycerides 149 0 - 150 mg/dL Cholesterol 170 0 - 200 mg/dL HDL 49 40 mg/dL LDL Cholesterol 91 0 - 100 mg/dL Blood Venous blood specimen / Unknown Historical Provider LAB BLOOD ORDERAB LES * Hepatitis C Screening (09/02/2012) Pathologist [facility] Hepatitis C Screening Abstracted Historical Provider MD BERNABE An from Last 3 Months or Most Recently Relevant to Health Maintenance Care Teams Pit Worker Power Shovel Relationship Specialty Start Date End Date Manny Mejias MD [facility] [address] [place] [address] [address] [place] [address] PCP - General Internal Medicine 05/08/20
--- OUTSIDE RECORDS SUMMARY | 2024-05-11 17:25 | XMS_ITS | Encounter Summary ---
Demographics Address [address] [facility] [address] [place] [address] Home Phone Mobile Phone Email Address Preferred Language Syriac; Castilian Marital Status Single [employer] Affiliation Unknown Race Black or Ladonna rican Ethnic Group or Author Organization [facility] Address [address] [place] [address] Care Team Providers Care Armature Winder Repair Helper Name Role Phone Roselyn Cisse DMD Primary Care Provider [phone] Encounter Details Date Type Department Care Team ([facility] st Contact Info) Description 11/19/2022 Dental Interim Note [facility] Dental [address] [place] [id number] Jabari Robertson [address] [place], [place] [id number] Social History Tobacco Use Types Packs/Day Years Used Date Smoking Tobacco: Never Smokeless Tobacco: Never Social Connections Answer Date Recorded Social Connections and Isolation 0 04/11/2022 Financial Resource Strain Answer Date R ecorded Financial Resource Strain 0 2021 Stress Answer Date Recorded Stress 0 04/11/2022 Physical Activity Answer Date Recorded Physical Activity 0 04/11/2022 Food Insecurity Answer Date Recorded Food 0 04/11/2022 Transportation Needs Answer Date Record ed Transportation 0 04/11/2022 Housing Stability Answer Date Recorded Housing 0 04/11/2022 Safety and Environment Answer Date Jeremi rded Safety 0 04/11/2022 Utilities Answer Date Recorded Utilities 0 04/11/2022 Employment Answer Date Recorded Employment 0 04/11/2022 Sex and Gender Information Value Date Recorded Sex Assigned at Not on file Legal Sex Male 10:16 AM PDT Gender Identity Not on file Sexual Orientation Not on file COVID-19 Exposure Response Date Recorded In the last 10 days, have yo u been in contact with someone who was confirmed or suspected to have Coronavirus/COVID-19? No / Unsure 11/18/2022 2:35 PM EDT documented as of this encounter Miscellaneous Notes * Patient Instructions - Jabari Robertson - 11/19/2022 9:41 AM EDT If you are not able to keep your appointment please call 24-48 hours before your appointment to cancel or reschedule. documented in this encounter Plan of Treatment Not on file documented as of this encounter Visit Diagnoses Not on filedocumented in this encounter Care Teams Armature Winder Repair Helper Relationship Specialty Start Date End Date Roselyn Cisse DMD [address] [place] [address] PCP - General 06/22/20 documented as of this encounter
== END 2024-05-11 16:10 | disposition home or self-care (01) ==
PROVIDERS: PCP Registered Nurse; Visit Provider Physician Assistant
DX: I10 Essential (primary) hypertension (principal); E78.2 Mixed hyperlipidemia; D17.1 Benign lipomatous neoplasm of skin and subcutaneous tissue of trunk; N40.1 Benign prostatic hyperplasia with lower urinary tract symptoms; R35.1 Nocturia

== ENCOUNTER → 2024-05-11 15:28 | Outpatient (BNVA) | payer MEDICAID, SELFPAY | PROVIDERS: PCP Registered Nurse; Visit Provider Physician Assistant | DX: I10 Essential (primary) hypertension (principal); E78.2 Mixed hyperlipidemia; D17.1 Benign lipomatous neoplasm of skin and subcutaneous tissue of trunk; N40.1 Benign prostatic hyperplasia with lower urinary tract symptoms; R35.1 Nocturia | CPT/HCPCS: 96127; 99212 ==

== ENCOUNTER 2024-05-23 14:13 | Outpatient (AMB) | payer MEDICAID, SELFPAY ==
--- NOTE | 2024-05-23 14:25 | MHC.OFFVIS ---
Vital Signs 05/23/24 14:29 Height 5 ft 2 in Weight 171 lb 6 oz BMI 31.3 BP 150/65 H Blood Pressure Location Lt brachial Position Sitting Pulse 82 Pulse Source Pulse Oximeter Pulse Oximetry (%) 96 Oxygen Delivery Method Room Air Intake Visit Reasons: FU to repeat injections Intake Note: Pain today 5 Foam Rubber Molder Required: Yes Foam Rubber Molder Language: Manager Solution Services: Foam Rubber Molder Offered & Declined Foam Rubber Molder Name: Daughter Alina Accompanied by: Daughter Allergies No Known Allergies Allergy (Verified 05/23/24 14:29) HPI Comments Details: Patient presents today for follow up for chronic low back pain. He underwent Bilateral Diagnostic L3-L4 DR L5 MBB on 03/24/24 with 100% pain relief since procedure for 6 hours with significant improvement in his daily activities, functioning, standing, walking, sleeping and ROM. Patient is interested to proceed with lumbar medial branch RFA as next steps for a longer term pain relief. He was provided with short script of tramadol previously and reports it has been beneficial for pain relief but he could not take it during daytime due to work. Denies any recent cough, cold, infection, fever or any significant changes in medical history since last office visit. He reports upcoming surgery of right upper back large lipoma excision on 06/10/[address] Ross. Past Procedures: 03/24/24: Bilateral Diagnostic L3-L4 DR L5 MBB- 100% pain relief for 6 hours, gradual return to baseline pain next day PRIOR: Patient is a 68 years old Kinyarwanda speaking male with history of chronic low back pain, right L5 sacralization, lumbar spondylolisthesis, presents today for initial evaluation of low back pain. Back pain has been chronic condition for him and has been progressively worsening over the past year. Patient works at [employer] which involves prolonged standing, bending, heavy lifting, twisting and pulling. [place] [facility] [place] with aggravation of his pain. Denies previous spine surgery or injections. Patient reports with worsening back pain he has been loosing balance when standing or bending. Pain affects his daily activities function, mobility, work, sleep, and social interactions. Previous lumbar spine imaging is noted below. We will update lumbar spine MRI. Denies any fever, chills, weight loss, abdominal or pain, bladder or bowel dysfunction or saddle anesthesia. Oswestry Low Back Pain Disability Score=25 (severe disability) Location: Lower back pain, numbness and tingling BLE posteriorly Duration: Chronic pain for many years, progressively worsening Characteristics of symptom or complaint: Aching, spasming, shooting, cramping, throbbing Aggravating or associated factors: Standing, walking, bending, movements, heavy lifting, pulling, twisting Relieving factors: Laying flat, rest, heat therapy, NSAIDs Treatment: [place] [facility] [place] [facility] Medical History Hepatitis C Impaired glucose metabolism Surgical History History of hernia surgery History of cholecystectomy History of colon surgery Social History Housing: [place] Alcohol intake: former Year quit: 1999 Patient Tobacco Use Status: Never used Tobacco Tobacco use type: Cigarette e-Cigarette/Vaping Use: Never Used Second Hand Smoke Exposure: No service: No Current occupational status: employed Current occupation: [employer] Cognitive needs: No Hearing needs: No Vision needs: Yes (wear glasses) Review of Systems Const All systems reviewed & are unremarkable except as noted in HPI and below Physical Exam General: Appears afebrile. Alert and oriented. Mood and affect appropriate. Follows and participates in conversation appropriately. Respiratory effort is unlabored. No cough. Able to transition from sit to stand unassisted. Uses cane with ambulation. Ambulates with bilaterally normal heel strike and toe off. General: Yes no CVA tenderness Back/Spine/Pelvis Other: Limited lumbar ROM due to pain. Mildly antalgic gait, no limping. Lumbar extension reproduces moderate pain, lumbar flexion is intact and reproduces mild pain. Demonstrates 5/5 strength of quadriceps bilaterally as well as flexion/dorsiflexion of bilateral feet against resistance. 2+ pedal pulses bilaterally. Seated straight leg rise with dorsiflexion negative bilaterally. +1 patellar and +1 achilles reflexes bilaterally. Facet loading test positive bilaterally, worse on the right side. Florecita sign, Christian?s, Gaenslen, Pelvic compression and Stinchfield tests are positive on the right. No groin pain with I/E hip rotations. Valsalva maneuver negative. Large lipoma of right upper back. Back: no CVA tenderness Cervical Spine: cervical ROM normal, cervical muscular tenderness and No Cervical spine tenderness Thoracic/Lumbar Spine: thoracic and lumbar spine normal to inspection, No Thoracic/lumbar spine scar(s), Lasegue's sign negative, straight leg raise negative bilaterally, pain with thoraco-lumbar ROM, paraspinal muscle tenderness, thoraco-lumbar ROM limited, No thoracic spinal tenderness and lumbar spinal tenderness (L3-S1) Sacroiliac joints: bilaterally (right>left) tender to palpation Extrem General: Yes capillary refill normal, Yes no clubbing, cyanosis or edema and Yes no calf tenderness Results Reviewed Results Reviewed: MR LUMBAR SPINE WITHOUT CONTRAST 01/16/24 CLINICAL INFORMATION: Spondylosis without myelopathy or radiculopathy. COMPARISON: CT abdomen and pelvis 01/20/2021. TECHNIQUE: MRI of the lumbar spine was obtained using routine sequences without contrast. FINDINGS: There is grade 1 anterolisthesis of L5 on S1 related to advanced facet degenerative changes at this level. Slight grade 1 retrolisthesis of L3 on L4 and slight grade 1 anterolisthesis of L4 on L5. Vertebral body heights are maintained. Bridging bone fuses the L2 and L3 vertebral segments. No acute bone marrow signal changes. There is loss of intervertebral disc height and T2 signal intensity at multiple levels related to disc degeneration. The tip of the conus medullaris is located at L2. No mass effect on the conus. Visualized distal cord signal intensity is normal. At L1-L2 there is a bulging disc. Bilateral facet degenerative change. No canal stenosis. No mass effect on the traversing or foraminal nerve roots. At L2-L3 there is no canal or neuroforaminal compromise. At L3-L4 there is a shallow right central protrusion superimposed upon a bulging disc. No canal stenosis. No mass effect on the traversing or foraminal nerve roots. At L4-L5 there is a pseudodisc bulge. Advanced bilateral facet degenerative change. No canal stenosis. There is mild mass effect on the extraforaminal segment of the right L4 nerve root related to a laterally bulging disc. At L5-S1 there is a pseudodisc bulge. Advanced bilateral facet degenerative change. No canal stenosis. Mild mass effect on the foraminal/extra foraminal segment of the left L5 nerve root. Limited visualization of the retroperitoneal anatomy reveals no abnormal finding. Psoas and paraspinal muscle groups are symmetric. IMPRESSION: There is multilevel degenerative spondylosis of the lumbar spine with slight grade 1 anterolisthesis of L5 on S1 related to advanced facet degenerative changes at this level. Slight grade 1 retrolisthesis of L3 on L4 and slight grade 1 anterolisthesis of L4 on L5. No canal stenosis. There is mild mass effect on the extraforaminal segment of the right L4 nerve root related to a laterally bulging disc at L4-L5 and mild mass effect on the foraminal/extraforaminal segment of the left L5 nerve root related to degenerative changes at L5-S1. XR LUMBOSACRAL SPINE 08/20/21 CLINICAL INFORMATION: Low back pain. FINDINGS: There is sacralization of the L5 vertebra with partial ankylosis of a prominent right-sided L5 transverse process. No acute fractures identified. There is a mild grade 1 spondylolisthesis L4-L5 with bilateral facet arthropathy. There is disc space narrowing seen throughout the lumbar spine. Marginal osteophytes are seen at multiple levels with ankylosis of L1-L2. No acute fractures identified. No definite spondylolysis is seen. IMPRESSION: No acute fracture or spondylolysis of the lumbar spine. Multilevel degenerative disc disease as described. Sacralization of L5 with prominent right transverse process articulating with the right iliac crest and superior sacroiliac joint. 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 CT/CT abdomen pelvis 01/20/21 SKELETAL: Multilevel degenerative arthropathy of the visualized thoracal lumbar spine. Severe facet arthropathy of L5-S1 is associated with grade 1 anterolisthesis of L5 on S1. The right and left gluteus muscles are atrophied and partially replaced by fat. No soft tissue mass. Assessment & Plan Assessment & Plan (1) Degenerative joint disease (DJD) of lumbar spine: Code(s): M47.816 - Spondylosis without myelopathy or radiculopathy, lumbar region Category: Medical Qualifiers: Spinal osteoarthritis complication: with myelopathy Qualified Code(s): M47.16 - Other spondylosis with myelopathy, lumbar region (2) Spondylolisthesis, lumbosacral region: Code(s): M43.17 - Spondylolisthesis, lumbosacral region Category: Medical (3) Sacralization of lumbar vertebra: Code(s): Q76.49 - Other congenital malformations of spine, not associated with scoliosis Category: Medical (4) Lumbosacral spondylosis: Code(s): M47.817 - Spondylosis without myelopathy or radiculopathy, lumbosacral region Category: Medical (5) Lumbar spine pain: Code(s): M54.50 - Low back pain, unspecified Category: Medical Plan Proceed with Bilateral L3-L4-L5 Medial Branch RFA with local and fluoroscopy axial low back pain given good results with diagnostic lumbar medial branch blocks, which resolved in complete pain relief for 6 hours after procedure and pain gradually returning to baseline next day. Expectations, risks and benefits were reviewed. Patient is aware he will be contacted to schedule this procedure. We also discussed peripheral nerve stimulation with Sprint device which patient declined. 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 Script provided for oral diclofenac. Patient is aware to hold other NSAIDs, including Ibuprofen while taking this. Side effects and precautions were discussed with patient and family. All questions were answered and the patient is in agreement of plan. Follow-up after RFA procedure and sooner as needed. Medications: New diclofenac sodium Take it with food and full glass of water. Avoid Ibuprofen while taking this. 50 mg PO TID PRN 90 tabs 0RF pain M47.817 - Spondylosis without myelopathy or radiculopathy, lumbosacral region, M54.50 - Low back pain, unspecified Refilled lidocaine 5% leave on most painful area for up to 12 hrs 1 patch topical DAILY 30 days 30 ea 3RF M47.16 - Other spondylosis with myelopathy, lumbar region Coding Level of Care Code Est Pt Level 4 (10180) Complex EM visit Add On G2211 Diagnoses Osteoarthritis of lumbar spine with myelopathy M47.16 Spinal osteoarthritis complication: with myelopathy Spondylolisthesis, lumbosacral region M43.17 Sacralization of lumbar vertebra Q76.49 Lumbosacral spondylosis M47.817 Lumbar spine pain M54.50
[2024-05-23 14:29] VITALS: BP 150/65; PULSE 82; O2SAT 96; BMI 31.3
== END 2024-05-23 14:38 | disposition home or self-care (01) ==
PROVIDERS: PCP Registered Nurse; Visit Provider Nurse Practitioner Family
DX: M47.16 Other spondylosis with myelopathy, lumbar region (principal); M43.17 Spondylolisthesis, lumbosacral region; Q76.49 Other congenital malformations of spine, not associated with scoliosis; M47.817 Spondylosis without myelopathy or radiculopathy, lumbosacral region; M54.50 Low back pain, unspecified
CPT/HCPCS: 99214

== ENCOUNTER → 2024-05-23 14:13 | Outpatient (BNVA) | payer MEDICAID, SELFPAY | PROVIDERS: PCP Registered Nurse; Visit Provider Nurse Practitioner Family | DX: M47.16 Other spondylosis with myelopathy, lumbar region (principal); M43.17 Spondylolisthesis, lumbosacral region; M47.817 Spondylosis without myelopathy or radiculopathy, lumbosacral region; M54.50 Low back pain, unspecified; Q76.49 Other congenital malformations of spine, not associated with scoliosis | CPT/HCPCS: 99212 ==

== ENCOUNTER → 2024-06-10 09:49 | Day surgery (SDC) | payer MEDICAID, SELFPAY ==
[2024-06-08 12:06] VITALS: BMI 31.1
--- NOTE | 2024-06-08 15:10 | P.CONAN_ITS ---
HPI - Anesthesia Eval Consult details Narrative: 68yo M for Excision Large Lipoma from the back PMFSH Active Problems Active Problems: All Active Problems BPH (benign prostatic hyperplasia) (Acute) Lipoma of back (Acute) Subcutaneous cyst (Acute) HLD (hyperlipidemia) (Acute) Memory impairment (Acute) Rectal pain (Acute) Lumbosacral spondylosis (Acute) Sacralization of lumbar vertebra (Acute) Spondylolisthesis, lumbosacral region (Acute) HTN (hypertension) (Acute) RUQ abdominal pain (Acute) Anemia (Acute) Pruritus (Acute) Balance problem (Acute) Seasonal allergies (Acute) Elevated TSH (Acute) Lumbar spine pain (Acute) Annual physical exam (Acute) Impaired glucose metabolism (Acute) Olinda onychomycosis (Acute) Callus of foot (Acute) Screening for diabetes mellitus (DM) (Acute) Screening for hypercholesterolemia (Acute) Screening for hypothyroidism (Acute) Degenerative joint disease (DJD) of lumbar spine (Acute) H/O TB (tuberculosis) (Acute) Past Medical History Medical History Hepatitis C Impaired glucose metabolism Surgical History Surgical History History of hernia surgery History of cholecystectomy History of colon surgery Social History Social History Housing: House Alcohol intake: former Year quit: 1999 Patient Tobacco Use Status: Never used Tobacco Tobacco use type: Cigarette e-Cigarette/Vaping Use: Never Used Second Hand Smoke Exposure: No service: No Current occupational status: employed Current occupation: [employer] Cognitive needs: No Hearing needs: No Vision needs: Yes (wear glasses) Meds Allergies Allergy/AdvReac Type Severity Reaction Status Date / Time No Known Allergies Allergy Verified 05/23/24 14:29 Exam Height,Weight and Vital Signs: Height 5 ft 2 in Weight 77.111 kg Assessment and Plan Assessment Anesthesia Assessment: Chart Reviewed
[2024-06-10 11:27] VITALS: BP 172/75; PULSE 73; RESP 16; TEMP 36.6; O2SAT 97
[2024-06-10 11:36] VITALS: BP 161/76
[2024-06-10] MEDS: Lactated Ringers 1,000 ML 100 ML IVCONT (11:36)
== END ==
LOC: HO.SSS 09:50
PROVIDERS: PCP Physician Assistant; Visit Provider Surgery
DX: D17.1 Benign lipomatous neoplasm of skin and subcutaneous tissue of trunk (principal); Z53.8 Procedure and treatment not carried out for other reasons
CPT/HCPCS: J0690

== ENCOUNTER 2024-06-30 06:22 | Outpatient (REF) | payer MEDICAID, SELFPAY ==
--- NOTE | ~2024-06-30 | FL_ITS ---
EXAMINATION: FL GUIDANCE ONLY HISTORY: M47.817 - Spondylosis without myelopathy or radiculopathy, lumbosacral r... COMPARISON: None available. TECHNIQUE: Fluoroscopy time: 0.4 minutes. Cumulative Dose: 7.26 mGy. DAP: 0.0565 mGym2 Images: 2. FINDINGS: Fluoroscopic spot films of the lumbar spine demonstrate needles in the regions of the left L3-4, L4-5, and L5-S1 facet joints. FL/FL guidance in treatment room IMPRESSION: Fluoroscopy during procedure. Please see procedure report for additional information. Electronically signed by: Collin Galvez MD 06/30/2024 02:58 PM EDT
== END 2024-06-30 06:23 | disposition home or self-care (01) ==
LOC: CF 06:22
PROVIDERS: Visit Provider Internal Medicine
DX: M47.817 Spondylosis without myelopathy or radiculopathy, lumbosacral region (principal); Z79.899 Other long term (current) drug therapy; Z79.891 Long term (current) use of opiate analgesic
CPT/HCPCS: 64635; 64636; J2003

== ENCOUNTER 2024-06-30 11:33 | Outpatient (AMB) | payer MEDICAID, SELFPAY ==
[2024-06-30 11:43] VITALS: BP 159/74; PULSE 72; RESP 16; O2SAT 98
--- NOTE | 2024-06-30 11:43 | A.OFFVIS_ITS ---
Vital Signs 06/30/24 11:43 06/30/24 13:01 BP 159/74 H 148/84 H Blood Pressure Location Lt brachial Lt brachial Position Sitting Sitting Respiration 16 16 Pulse 72 76 Pulse Source Pulse Oximeter Pulse Oximeter Pulse Oximetry (%) 98 95 Oxygen Delivery Method Room Air Room Air Intake Visit Reasons: LEFT L3, L4, L5 RFA MBB/ oxy & valium Intake Note: Pt took oxy and valium prior to visit as ordered Allergies No Known Allergies Allergy (Verified 07/21/24 11:11) Medication List - Last Reconciled 06/30/24 by Ginny Perez LPN acetaminophen (Tylenol Extra Strength) 1,000 mg (2 x 500 mg) PO QID PRN blood pressure monitor As directed-testing once a day as needed cetirizine 10 mg PO DAILY PRN 90 days diazepam (Valium) 5 mg PO ONCE PRN diclofenac sodium 50 mg PO TID PRN finasteride 5 mg PO DAILY 90 days ibuprofen 800 mg PO Q8H levothyroxine 50 mcg PO DAILY 90 days lidocaine 5% 1 patch topical DAILY 30 days lisinopril 5 mg PO DAILY 90 days naloxone 4 mg/actuation (Narcan) 4 mg intranasal Q2M PRN oxycodone 10 mg PO ONCE PRN pantoprazole 20 mg PO DAILY tizanidine 2 mg PO ONCE PRN 10 days tramadol 50 mg PO Q8H PRN 7 days HPI HPI LEFT L3, L4, L5 RFA MBB/ oxy & valium: Details: Patient presents for scheduled procedure. Denies any recent cough, cold, infecti on, fever or other significant changes in medical history since last office visit. [facility] Medical History Hepatitis C Impaired glucose metabolism Surgical History History of hernia surgery History of cholecystectomy History of colon surgery Social History Housing: House Alcohol intake: former Year quit: 1999 Patient Tobacco Use Status: Never used Tobacco Tobacco use type: Cigarette e-Cigarette/Vaping Use: Never Used Second Hand Smoke Exposure: No service: No Current occupational status: employed Current occupation: [employer] Cognitive needs: No Hearing needs: No Vision needs: Yes (wear glasses) Physical Exam Vital Signs: Last Vital Signs Pulse 76 06/30/24 13:01 Resp 16 06/30/24 13:01 BP 148/84 H 06/30/24 13:01 Pulse Ox 95 06/30/24 13:01 Oxygen Delivery Method Room Air 06/30/24 13:01 Office Procedures Details: Radiofrequency lesioning medial branch nerves, Left L3, L4 medial branches and L5 dorsal ramus (L4/5 and L5/S1) (2 levels, 3 nerves) After obtaining written consent, pre-procedure blood pressure and heart rate were stable and recorded in the nursing record. The patient was placed in the prone position. The lumbar area was prepped with chloraprep and draped in sterile fashion. The skin over the target for each medial branch nerve was anesthetized with 0.5% lidocaine. An 18 gauge radiofrequency cannula was advanced to each target site under fluoroscopic guidance. No paresthesias were elicited with needle placement and aspiration was negative for heme and CSF. Impedences were verified under 600 ohms. Motor testing (2 Hz) confirmed needle placement at each site within the appropriate voltage thresholds. Each site was injected with 0.5 ml 2% preservative-free lidocaine. Radiofrequency lesioning was performed for 90 seconds at 80 deg Celcius. The needle was removed, skin cleansed and a sterile bandage was applied. The patient tolerated the procedure well and no complications were encountered. Following the procedure the patient's vital signs were stable. The patient was discharged home in good condition with post-procedural instructions. Time Out: Immediately prior to the procedure, the following was verbally confirmed that there is a signed consent form and that the correct patient, planned procedure, site and side are consistent with documentation and that necessary equipment and/or blood products are available prior to the start of the case. Complications: none EBL: <5 cc 25239 - RFA Lumbar Medial Branches 34150 - Lumbar Medial Branches ADDNL Procedure code (CPT) selection complete Assessment & Plan Assessment & Plan (1) Lumbosacral spondylosis: Code(s): M47.817 - Spondylosis without myelopathy or radiculopathy, lumbosacral region Category: Medical Plan Patient is status post left L3, L4 MB, L5 DR RFA. Patient tolerated procedure well and was discharged home in stable condition with discharge instructions. All questions were answered. We will follow-up via telephone or in clinic to assess response to therapy. A follow-up appointment was made during today's visit. Orders: Orders FL guidance in treatment room 06/30/24 M47.817 - Spondylosis without myelopathy or radiculopathy, lumbosacral region Medications: New diazepam (Valium) please take 30minutes prior to arrival for procedure 5 mg PO ONCE PRN 1 tab 0RF sleep oxycodone take 30 minutes prior to arrival for procedure 10 mg PO ONCE PRN 1 tab 0RF pain Coding Level of Care Code Procedure Only Diagnoses Lumbosacral spondylosis M47.817 CPT Codes Radiofrequency Ablation - Rad-Ablation 3: 77050 - RFA Lumbar Medial Branches ([id number]) Radiofrequency Ablation - Rad-Ablation 4: 23247 - Lumbar Medial Branches ADDNL ([id number])
[2024-06-30 13:01] VITALS: BP 148/84; PULSE 76; RESP 16; O2SAT 95
== END 2024-06-30 13:00 | disposition home or self-care (01) ==
LOC: HO.PMCPRC 11:33
PROVIDERS: PCP Registered Nurse; Visit Provider Internal Medicine
DX: M47.817 Spondylosis without myelopathy or radiculopathy, lumbosacral region (principal)
CPT/HCPCS: 64635; 64636

== ENCOUNTER 2024-07-21 06:20 | Outpatient (REF) | payer MEDICAID, SELFPAY ==
--- NOTE | ~2024-07-21 | FL_ITS ---
EXAMINATION: FL GUIDANCE ONLY HISTORY: M47.817 - Spondylosis without myelopathy or radiculopathy, lumbosacral r... COMPARISON: None available. TECHNIQUE: Fluoroscopy time: 29.9 seconds. Cumulative Dose: 15.430 mGy. DAP: 1.7748 mGym2 Images: 3. FINDINGS: Images demonstrate needles in the regions of the right L3-4, L4-5, and L5-S1 facet joints. FL/FL guidance in treatment room IMPRESSION: Fluoroscopy during procedure. Please see procedure report for additional information. Electronically signed by: Collin Galvez MD 07/21/2024 02:34 PM EDT
== END 2024-07-21 06:21 | disposition home or self-care (01) ==
LOC: CF 06:20
PROVIDERS: Visit Provider Internal Medicine
DX: M47.817 Spondylosis without myelopathy or radiculopathy, lumbosacral region (principal)
CPT/HCPCS: 64635; 64636; J2003

== ENCOUNTER 2024-07-21 11:02 | Outpatient (AMB) | payer MEDICAID, SELFPAY ==
[2024-07-21 11:09] VITALS: BP 151/74; PULSE 77; RESP 16; O2SAT 97
--- NOTE | 2024-07-21 11:09 | A.OFFVIS_ITS ---
Vital Signs 07/21/24 11:09 07/21/24 11:45 BP 151/74 H 145/72 H Blood Pressure Location Lt brachial Lt brachial Position Sitting Sitting Respiration 16 16 Pulse 77 77 Pulse Source Pulse Oximeter Pulse Oximeter Pulse Oximetry (%) 97 98 Oxygen Delivery Method Room Air Room Air Intake Visit Reasons: RIGHT L3, L4, L5 MB RFA/OXY & VALIUM Bulk Station Operator Required: Yes Bulk Station Operator Services: Bulk Station Operator Present Bulk Station Operator Name: Tiffany [phone] Allergies No Known Allergies Allergy (Verified 07/21/24 11:11) Medication List - Last Reconciled 07/21/24 by Ginny Perez LPN acetaminophen (Tylenol Extra Strength) 1,000 mg (2 x 500 mg) PO QID PRN blood pressure monitor As directed-testing once a day as needed cetirizine 10 mg PO DAILY PRN 90 days diazepam (Valium) 5 mg PO ONCE PRN diclofenac sodium 50 mg PO TID PRN finasteride 5 mg PO DAILY 90 days ibuprofen 800 mg PO Q8H levothyroxine 50 mcg PO DAILY 90 days lidocaine 5% 1 patch topical DAILY 30 days lisinopril 5 mg PO DAILY 90 days naloxone 4 mg/actuation (Narcan) 4 mg intranasal Q2M PRN oxycodone 10 mg PO ONCE PRN pantoprazole 20 mg PO DAILY tizanidine 2 mg PO ONCE PRN 10 days tramadol 50 mg PO Q8H PRN 7 days HPI HPI RIGHT L3, L4, L5 MB RFA/OXY & VALIUM: Details: Patient presents for scheduled procedure. Denies any recent cough, cold, infection, fever or other significant changes in medical history since last office visit. [facility] Medical History Hepatitis C Impaired glucose metabolism Surgical History History of hernia surgery History of cholecystectomy History of colon surgery Social History Housing: House Alcohol intake: former Year quit: 1999 Patient Tobacco Use Status: Never used Tobacco Tobacco use type: Cigarette e-Cigarette/Vaping Use: Never Used Second Hand Smoke Exposure: No service: No Current occupational status: employed Current occupation: [employer] Cognitive needs: No Hearing needs: No Vision needs: Yes (wear glasses) Physical Exam Vital Signs: Last Vital Signs Pulse 77 07/21/24 11:09 Resp 16 07/21/24 11:09 BP 151/74 H 07/21/24 11:09 Pulse Ox 97 07/21/24 11:09 Oxygen Delivery Method Room Air 07/21/24 11:09 Office Procedures Details: Radiofrequency lesioning medial branch nerves, Right L3, L4 medial branches and L5 dorsal ramus (L4/5 and L5/S1) (2 levels, 3 nerves) An fishing rod assembler was used throughout the encounter. After obtaining written consent, pre-procedure blood pressure and heart rate were stable and recorded in the nursing record. The patient was placed in the prone position. The lumbar area was prepped with chloraprep and draped in sterile fashion. The skin over the target for each medial branch nerve was anesthetized with 0.5% lidocaine. An 18 gauge radiofrequency cannula was advanced to each target site under fluoroscopic guidance. No paresthesias were elicited with needle placement and aspiration was negative for heme and CSF. Impedences were verified under 600 ohms. Motor testing (2 Hz) confirmed needle placement at each site within the appropriate voltage thresholds. Each site was injected with 0.5 ml 2% preservative-free lidocaine. Radiofrequency lesioning was performed for 90 seconds at 80 deg Celcius. Each site was then injected with 0.5ml 2% lidocaine. The needle was removed, skin cleansed and a sterile bandage was applied. The patient tolerated the procedure well and no complications were encountered. Following the procedure the patient's vital signs were stable. The patient was discharged home in good condition with post-procedural instructions. Time Out: Immediately prior to the procedure, the following was verbally confirmed that there is a signed consent form and that the correct patient, planned procedure, site and side are consistent with documentation and that necessary equipment and/or blood products are available prior to the start of the case. Complications: none EBL: <5 cc 93847 - RFA Lumbar Medial Branches 88656 - Lumbar Medial Branches ADDNL Procedure code (CPT) selection complete Office Meds lidocaine (PF) 10 mg/mL (1 %) injection solution Performing Provider: Brendon Chaudhary MD [place]forming [place] [facility] Documented (not given) by: Brendon Chaudhary MD on 07/21/24 11:35 Dose Route Admin Location Dispensed Lot Number Expiration Date [employer] Production Worker 10 mL subcut mL Assessment & Plan Assessment & Plan (1) Lumbosacral spondylosis: Code(s): M47.817 - Spondylosis without myelopathy or radiculopathy, lumbosacral region Category: Medical Plan Patient is status post right L3, L4 medial branches and L5 dorsal ramus radiofrequency ablation. Patient tolerated procedure well and was discharged home in stable condition with discharge instructions. All questions were answered. We will follow-up via telephone or in clinic to assess response to therapy. A follow-up appointment was made during today's visit. Orders: Orders AMB RFA Radiofrequency Ablation Pain Management Today M47.817 - Spondylosis without myelopathy or radiculopathy, lumbosacral region Medications: New lidocaine (PF) 10 mL subcut ONCE 5 mL 0RF M47.817 - Spondylosis without myel opathy or radiculopathy, lumbosacral region Coding Level of Care Code Procedure Only Diagnoses Lumbosacral spondylosis M47.817 CPT Codes Radiofrequency Ablation - Rad-Ablation 3: 13137 - RFA Lumbar Medial Branches ([id number]) Radiofrequency Ablation - Rad-Ablation 4: 63314 - Lumbar Medial Branches ADDNL ([id number])
[2024-07-21 11:45] VITALS: BP 145/72; PULSE 77; RESP 16; O2SAT 98
--- OUTSIDE RECORDS SUMMARY | 2024-07-21 13:16 | XMS_ITS | Clinical Summary ---
Author Organization [address] [facility] Address [address] [place] [address] Phone Care Team Providers Care Hand Cutter Name Role Phone Manny Mejias MD Primary Care Provider [phone] Allergies No known active allergies Medications ammonium lactate (LAC-HYDRIN) 12 % lotion Apply [...] Name Administration Dates Next Due Hepatitis B (Eezuouk-V-Abzgr , Recombivax HB-Adult) 19yo and older 03/01/2008 Influenza trivalent, 0.5mL, preservative free (Fluarix; FluLaval; Fluzone) ages 6mo and older (Afluria) 3 years and older 03/01/2008 PPD Test 03/01/2008 Tdap Tetanus diptheria acell ular pertussis (Boostrix; Adacel) 7yo and older 03/01/2008 Surgical History Surgery Date Site/Laterality Comments OTHER SURGICAL HISTORY PROCEDURE: ---- OTHER ----; COMMENT: Colon surgery at [facility], ?resection, for ?infection COLONOSCOPY 07/10/08 PROCEDURE: CA COLONOSCOPY STOMA DX INCLUDING COLLJ SPEC SPX; [...] at Not on file Legal Sex Male 10:34 PM EST Gender Identity Not on file Sexual Orientation [...] Due Date Last Done Comments Pneumococcal Vaccine: 50+ Ye ars (1 of 2 - PCV) 1976 Zoster Vaccines (1 of 2) 10/02/2007 Hepatitis B Vaccines (2 of 3 - 19+ 3-dose series) 03/29/2008 03/01/2008 DTaP,Tdap,and Td Vaccines (2 - Td or Tdap) 03/01/2018 03/01/2008 Abdominal Aortic Aneurysm (A AA) Screen 03/22/2022 Cholesterol Screening (Lipid Panel) 03/22/2022 05/04/2015 Depression Screening 03/22/2022 Social Influencers of Health Screening 03/22/2022 Falls Risk Assessment 2022 COVID-19 Vaccine (1 - 2023-2 5 season) 2023 Colorectal Cancer Screening: Colonoscopy 05/16/2024 05/16/2019 Influenza Vaccine (Season Ended) 2024 03/01/20 08 RSV Immunization Adult Patie nts (1 - 1-dose 75+ series) 2032 Hepatitis [...] patient's age to complete this topic Meningococcal B Vaccine Aged Out No l onger eligible based on patient's age to complete this topic RSV Immunization Patients Un danita 20 months Aged Out No longer eligible b ased on patient's age to complete this topic Varicella Vaccines Aged Out No longer eligible based on patient's age to complete this topic Procedures Procedure Name Priority Date/Time Associated Diagnosis Comments COLONOSCOPY Routine 05/16/2019 LIPID PANEL Routine 05/04/2015 HEPATITIS C SCREENING Routine 09/02/2012 from Last 3 Months or Most Recently Relevant to Health Maintenance Results * Colonoscopy (05/16/2019) Colonoscopy No interpretation , Abstracted Anatomical Region Laterality Modality Other [facility] Provider HEALTH MAINTENANCE Final Result * Lipid panel (05/04/2015) Pathologist [facility] LDL/HDL Ratio 3 0 - 4 Triglycerides 149 0 - 150 mg/dL Cholesterol 170 0 - 200 mg/dL HDL 49 >=40 mg/dL LDL Cholesterol 91 0 - 100 mg/dL Blood Venous blood specimen / Unknown [facility] Provider LAB BLOOD ORDERABLES Laura l Result * Hepatitis C Screening (09/02/2012) Hepatitis C Screening Abstracted [facility] Provider HEALTH MAINTENANCE Final Result from Last 3 Months or Most Recently Relevant to Health Maintenance Insurance MEDICAID - [place] Care Teams Hand Cutter Relationship Specialty Start Date End Date Manny Mejias MD [address] [place] [address] PCP - General Internal Medicine 05/08/20
--- OUTSIDE RECORDS SUMMARY | 2024-07-21 13:16 | XMS_ITS | Encounter Summary ---
Demographics Address [address] [place] [address] Home Phone Mobile Phone Email Address Preferred Language Luxembourger; Castilian Marital Status Single Mu-Ism Affiliation Unknown Race Black or Ladonna rican Ethnic Group or Author Organization [facility] Address [address] [place] [address] Care Team Providers Care Miller Helper Name Role Phone Roselyn Cisse DMD Primary Care Provider [phone] Encounter Details Date Type Department Care Team ([facility] st Contact Info) Description 11/19/2022 Dental Interim Note [facility] [address] [place] [id number] Jabari Robertson [address] [place], [place] [id number] Social History Tobacco Use Types Packs/Day Years [...] on filedocumented in this encounter Care Teams Miller Helper Relationship Specialty Start Date End Date Roselyn Cisse DMD [address] [place] [address] PCP - General 06/22/20 documented as of this encounter
--- OUTSIDE RECORDS SUMMARY | 2024-07-21 13:16 | XMS_ITS | Clinical Summary ---
Author Organization [facility] Address [address] [place] [address] Care Team Providers Care Shuffle Board Operator Name Role Phone Roselyn Cisse DMD Primary Care Provider [phone] Source Comments PLEASE NOTE, if this patient [...] Hepatitis C Screening 1955 Lipid Screening 1957 Tobacco Screening 1957 Imm-DTaP/Tdap/Td (1 - Tdap) 1976 CT Colonography 2002 Colonoscopy 2002 Colorectal Cancer Screening 2002 FIT/gFOBT 2002 Fecal DNA 2002 Flexible Sigmoidoscopy 2002 Imm-Pneumococcal 65+ (1 of 1 - PCV) 10/02/2007 Imm-Zoster, Recombinant (1 of 2) 10/02/2007 Falls Prevention 2022 [id number] ( - season) 2023 Imm-Influenza (#1) 2023 Dental BW 03/27/2024 03/25/2023, 04/11/2022 Dental Examination 03/27/2024 03/25/2023, 04/11/2022 Dental Perio Charting 03/27/2024 03/25/2023, 022 Dental Prophy 03/27/2024 03/25/2023, 04/11/2022 Alcohol and Drug Screen 04/13/2024 Depression Annual Screen 04/13/2024 Hypertension Screening (#1) 04/21/2024 Dental FMX/Pano 04/13/2027 04/11/2022 Procedures Procedure Name [...] Health Maintenance Insurance [facility] [id number] [place] Care Teams Shuffle Board Operator Relationship Specialty Start Date End Date Roselyn Cisse DMD [address] [place] [address] PCP - General 06/22/20
== END 2024-07-21 11:49 | disposition home or self-care (01) ==
LOC: HO.PMCPRC 11:02
PROVIDERS: PCP Registered Nurse; Visit Provider Internal Medicine
DX: M47.817 Spondylosis without myelopathy or radiculopathy, lumbosacral region (principal)
CPT/HCPCS: 64635; 64636

== ENCOUNTER 2024-08-23 11:12 | Outpatient (AMB) | payer MEDICAID, SELFPAY ==
--- NOTE | 2024-08-23 11:20 | A.OFFVIS_ITS ---
Vital Signs 08/23/24 11:29 Height 5 ft 2 in Weight 163 lb 4 oz BMI 29.9 BP 174/79 H Blood Pressure Location Rt brachial Position Sitting Pulse 82 Pulse Source Pulse Oximeter Pulse Oximetry (%) 98 Oxygen Delivery Method Room Air Intake Visit Reasons: s/p Perry L3-L4-L5 RFA/yadi from 08/11 Intake Note: Pain today 08/20 Edi Programmer Analyst Required: Yes Edi Programmer Analyst Language: Pool Hall Inspector Name: Miguel # [id number] Accompanied by: Self / Same As Patient Allergies No Known Allergies Allergy (Verified 08/23/24 11:30) HPI Comments Details: The patient is a 68-year-old male presenting with a follow-up after recent lumbar radiofrequency ablation. The ablation was conducted on the left lumbar region on June 30 and the right side on July 21, targeting chronic arthritic back pain. Post-procedure, the patient reports intermittent low back pain mainly occurring in the morning, which resolves with activity. New episodes of right hip and leg pain have emerged, particularly upon waking, but subside after self- massage and do not persist throughout the day. No associated groin pain is reported. The patient also had an intended lipoma excision that was not completed due to prior scheduling conflicts and requires rescheduling. He is planning to reach out to Dr. Ross office. - Onset: Right hip and leg pain started post-procedure, noted primarily in the morning. - Quality and Character: Intermittent, non-constant pain in the lower back and right leg. - Primary Location: Lower back; right leg. - Radiation: Leg pain, does not involve groin. - Exacerbating Factors: Lying down overnight. - Relieving Factors: Physical activity, rubbing affected areas. - Interference: Pain in the morning resolves after performing daily chores. - Affect: Intermittent pain may affect morning routines but does not persist. - Analgesia: Procedure performed for one-year back pain relief; able to self- manage morning leg pain. - Adverse Effects: None reported. - Activities of Daily Living: Pain does not impede daily chores; subsides with activity. - Aberrant Drug Related Behaviors: None reported. Past Procedures: 06/30/24 (left) and 07/21/24 (right): Bilateral L3-L4-L5 MB RFA-80% pain relief 03/24/24: Bilateral Diagnostic L3-L4 DR L5 MBB- 100% pain relief for 6 hours, gradual return to baseline pain next day PRIOR: Patient is a 68 years old Indonesian speaking male with history of chronic low back pain, right L5 sacralization, lumbar spondylolisthesis, presents today for initial evaluation of low back pain. Back pain has been chronic condition for him and has been progressively worsening over the past year. Patient works at [employer] which involves prolonged standing, bending, heavy lifting, twisting and pulling. He completed physical therapy at [facility] about 5 years ago with aggravation of his pain. Denies previous spine surgery or injections. Patient reports with worsening back pain he has been loosing balance when standing or bending. Pain affects his daily activities function, mobility, work, sleep, and social interactions. Previous lumbar spine imaging is noted below. We will update lumbar spine MRI. Denies any fever, chills, weight loss, abdominal or pain, bladder or bowel dysfunction or saddle anesthesia. Oswestry Low Back Pain Disability Score=25 (severe disability) Location: Lower back pain, numbness and tingling BLE posteriorly Duration: Chronic pain for many years, progressively worsening Characteristics of symptom or complaint: Aching, spasming, shooting, cramping, throbbing Aggravating or associated factors: Standing, walking, bending, movements, heavy lifting, pulling, twisting Relieving factors: Laying flat, rest, heat therapy, NSAIDs Treatment: PT at [facility] in 2019 [facility] Medical History Hepatitis C Impaired glucose metabolism Surgical History History of hernia surgery History of cholecystectomy History of colon surgery Social History Housing: House Alcohol intake: former Year quit: 1999 Patient Tobacco Use Status: Never used Tobacco Tobacco use type: Cigarette e-Cigarette/Vaping Use: Never Used Second Hand Smoke Exposure: No service: No Current occupational status: employed Current occupation: [employer] and [employer] Cognitive needs: No Hearing needs: No Vision needs: Yes (wear glasses) Review of Systems Const Details: - Musculoskeletal: Reports pain in lower back and intermittent right hip and leg pain upon waking. - General: Denies persistent or constant pain. - Neurological: Denies groin pain associated with leg pain. All systems reviewed & are unremarkable except as noted in HPI and below Physical Exam General: Appears afebrile. Alert and oriented. Mood and affect appropriate. Follows and participates in conversation appropriately. Respiratory effort is unlabored. No cough. Able to transition from sit to stand unassisted. Ambulates with bilaterally normal heel strike and toe off. General: Yes no CVA tenderness Back/Spine/Pelvis Other: Mildly antalgic gait, no limping. Lumbar extension reproduces mild pain, lumbar flexion is reproduces moderate pain. Demonstrates 5/5 strength of quadriceps bilaterally as well as flexion/dorsiflexion of bilateral feet against resistance. 2+ pedal pulses bilaterally. Seated straight leg rise with dorsiflexion negative bilaterally. +1 patellar and +1 achilles reflexes bilaterally. Facet loading test positive bilaterally, worse on the right side. Florecita sign, Christian?s, Gaenslen, Pelvic compression and Stinchfield tests are positive on the right. Minimal groin pain with I/E hip rotations, worse on the right. Valsalva maneuver negative. Large lipoma right upper back. Back: no CVA tenderness Cervical Spine: cervical ROM normal, cervical muscular tenderness and No Cervical spine tenderness Thoracic/Lumbar Spine: thoracic and lumbar spine normal to inspection, No Thoracic/lumbar spine scar(s), Lasegue's sign negative, straight leg raise negative bilaterally, pain with thoraco-lumbar ROM, paraspinal muscle tenderness, thoraco-lumbar ROM limited, No thoracic spinal tenderness and lumbar spinal tenderness (L3-S1) Pelvis: no buttock tenderness Sacroiliac joints: bilaterally (right>left) tender to palpation Extrem General: Yes capillary refill normal, Yes no clubbing, cyanosis or edema and Yes no calf tenderness Results Reviewed Results Reviewed: MR LUMBAR SPINE WITHOUT CONTRAST 01/16/24 CLINICAL INFORMATION: Spondylosis without myelopathy or radiculopathy. COMPARISON: CT abdomen and pelvis 01/20/2021. TECHNIQUE: MRI of the lumbar spine was obtained using routine sequences without contrast. FINDINGS: There is grade 1 anterolisthesis of L5 on S1 related to advanced facet degenerative changes at this level. Slight grade 1 retrolisthesis of L3 on L4 and slight grade 1 anterolisthesis of L4 on L5. Vertebral body heights are maintained. Bridging bone fuses the L2 and L3 vertebral segments. No acute bone marrow signal changes. There is loss of intervertebral disc height and T2 signal intensity at multiple levels related to disc degeneration. The tip of the conus medullaris is located at L2. No mass effect on the conus. Visualized distal cord signal intensity is normal. At L1-L2 there is a bulging disc. Bilateral facet degenerative change. No canal stenosis. No mass effect on the traversing or foraminal nerve roots. At L2-L3 there is no canal or neuroforaminal compromise. At L3-L4 there is a shallow right central protrusion superimposed upon a bulging disc. No canal stenosis. No mass effect on the traversing or foraminal nerve roots. At L4-L5 there is a pseudodisc bulge. Advanced bilateral facet degenerative change. No canal stenosis. There is mild mass effect on the extraforaminal segment of the right L4 nerve root related to a laterally bulging disc. At L5-S1 there is a pseudodisc bulge. Advanced bilateral facet degenerative change. No canal stenosis. Mild mass effect on the foraminal/extra foraminal segment of the left L5 nerve root. Limited visualization of the retroperitoneal anatomy reveals no abnormal finding. Psoas and paraspinal muscle groups are symmetric. IMPRESSION: There is multilevel degenerative spondylosis of the lumbar spine with slight grade 1 anterolisthesis of L5 on S1 related to advanced facet degenerative changes at this level. Slight grade 1 retrolisthesis of L3 on L4 and slight grade 1 anterolisthesis of L4 on L5. No canal stenosis. There is mild mass effect on the extraforaminal segment of the right L4 nerve root related to a laterally bulging disc at L4-L5 and mild mass effect on the foraminal/extraforaminal segment of the left L5 nerve root related to degenerative changes at L5-S1. XR LUMBOSACRAL SPINE 08/20/21 CLINICAL INFORMATION: Low back pain. FINDINGS: There is sacralization of the L5 vertebra with partial ankylosis of a prominent right-sided L5 transverse process. No acute fractures identified. There is a mild grade 1 spondylolisthesis L4-L5 with bilateral facet arthropathy. There is disc space narrowing seen throughout the lumbar spine. Marginal osteophytes are seen at multiple levels with ankylosis of L1-L2. No acute fractures identified. No definite spondylolysis is seen. IMPRESSION: No acute fracture or spondylolysis of the lumbar spine. Multilevel degenerative disc disease as described. Sacralization of L5 with prominent right transverse process articulating with the right iliac crest and superior sacroiliac joint. 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 CT/CT abdomen pelvis 01/20/21 SKELETAL: Multilevel degenerative arthropathy of the visualized thoracal lumbar spine. Severe facet arthropathy of L5-S1 is associated with grade 1 anterolisthesis of L5 on S1. The right and left gluteus muscles are atrophied and partially replaced by fat. No soft tissue mass. Assessment & Plan Assessment & Plan (1) Right hip pain: Code(s): M25.551 - Pain in right hip Category: Medical (2) Degenerative joint disease (DJD) of lumbar spine: Code(s): M47.816 - Spondylosis without myelopathy or radiculopathy, lumbar region Category: Medical Qualifiers: Spinal osteoarthritis complication: with myelopathy Qualified Code(s): M47.16 - Other spondylosis with myelopathy, lumbar region (3) Lumbosacral spondylosis: Code(s): M47.817 - Spondylosis without myelopathy or radiculopathy, lumbosacral region Category: Medical (4) Lipoma of back: Code(s): D17.1 - Benign lipomatous neoplasm of skin and subcutaneous tissue of trunk Category: Medical Plan For the follow-up, I addressed the outcome of the lumbar radiofrequency ablation, noting that while morning pain occurs intermittently, the patient experiences significant relief throughout the day with activity. No immediate ad ditional interventions for back pain are advised. An x-ray of the hip joint was planned to investigate the cause of intermittent right leg pain. A rescheduling of the lipoma excision is necessary, as the procedure was previously interrupted per patient. The effectiveness of the ablation will continue to be monitored to ensure proper documentation for potential future repeats of the intervention. Patient was informed and verbally consented to the use of an ambient scribe for clinic note documentation during this visit. Orders: Orders XR hip BI w PEL1V Today M25.551 - Pain in right hip Patient Instructions: - Complete an x-ray for the hip joint evaluation. - Reschedule the appointment for lipoma removal with Dr. Ross. - Engage in daily physical activity to alleviate morning pain. - Monitor pain levels and contact if pain becomes persistent or worse. - Follow up as needed for further evaluation and adjustments in treatment. Coding Level of Care Code Est Pt Level 4 (55000) Complex EM visit Add On G2211 Diagnoses Right hip pain M25.551 Osteoarthritis of lumbar spine with myelopathy M47.16 Spinal osteoarthritis complication: with myelopathy Lumbosacral spondylosis M47.817 Lipoma of back D17.1
[2024-08-23 11:29] VITALS: BP 174/79; PULSE 82; O2SAT 98; BMI 29.9
--- OUTSIDE RECORDS SUMMARY | 2024-08-23 12:41 | XMS_ITS | Clinical Summary ---
Author Organization [address] [facility] Address [address] [place] [address] Phone Care Team Providers Care Hydrogen Plant Operator Name Role Phone Manny Mejias MD Primary Care Provider [phone] Allergies No known active allergies Medications ammonium [...] Name Administration Dates Next Due Hepatitis B (Otdzdgr-T-Fjzkt , Recombivax HB-Adult) 19yo and older 03/01/2008 Influenza trivalent, 0.5mL, preservative free (Fluarix; FluLaval; Fluzone) ages 6mo and older (Afluria) 3 years and older 03/01/2008 PPD Test 03/01/2008 Tdap Tetanus diptheria acell ular pertussis (Boostrix; Adacel) 7yo and older 03/01/2008 Surgical History Surgery Date Site/Laterality Comments OTHER SURGICAL HISTORY PROCEDURE: ---- OTHER ----; COMMENT: Colon surgery at [facility], ?resection, for ?infection COLONOSCOPY 07/10/08 PROCEDURE: NM COLONOSCOPY STOMA DX INCLUDING COLLJ SPEC SPX; [...] , Abstracted Anatomical Region Laterality Modality Other [facility] Provider HEALTH MAINTENANCE Final Result * Lipid panel (05/04/2015) Pathologist [facility] LDL/HDL Ratio 3 0 - 4 Triglycerides 149 0 - 150 mg/dL Cholesterol 170 0 - 200 mg/dL HDL 49 >=40 mg/dL LDL Cholesterol 91 0 - 100 mg/dL Blood Venous blood specimen / Unknown [facility] Provider LAB BLOOD ORDERABLES Laura l Result * Hepatitis C Screening (09/02/2012) Hepatitis C Screening Abstracted [facility] Provider HEALTH MAINTENANCE Final Result from Last 3 Months or Most Recently Relevant to Health Maintenance Insurance MEDICAID - [place] Care Teams Hydrogen Plant Operator Relationship Specialty Start Date End Date Manny Mejias MD [address] [place] [address] PCP - General Internal Medicine 05/08/20
--- OUTSIDE RECORDS SUMMARY | 2024-08-23 12:41 | XMS_ITS | Clinical Summary ---
Author Organization [facility] Address [address] [place] [address] Care Team Providers Care Packing Line Worker Name Role Phone Roselyn Cisse DMD Primary Care Provider [phone] Source Comments PLEASE NOTE, if this patient [...] (1 of 2) 10/02/2007 Falls Prevention 2022 [id number] ( - season) 2023 Imm-Influenza (#1) 2023 [...] [facility] [address] [place] MEDICAID DENTAL Care Teams Packing Line Worker Relationship Specialty Start Date End Date Roselyn Cisse DMD [address] [place] [address] PCP - General 06/22/20
--- OUTSIDE RECORDS SUMMARY | 2024-08-23 12:41 | XMS_ITS | Encounter Summary ---
Demographics Address [address] [facility] [address] [place] [address] Home Phone Mobile Phone Email Address Preferred Language Slovenian; Castilian Marital Status Single Yazidi Affiliation Unknown Race Black or Ladonna rican Ethnic Group or Author Organization [facility] Address [address] [place] [address] Care Team Providers Care Building Energy Retrofit Technician Name Role Phone Roselyn Cisse DMD Primary Care Provider [phone] Encounter Details Date Type Department Care Team ([facility] st Contact Info) Description 11/19/2022 Dental Interim Note [facility] [address] [place] [phone] Jabari Robertson [address] [place], [place] [phone] Social History Tobacco Use Types Packs/Day Years [...] on filedocumented in this encounter Care Teams Building Energy Retrofit Technician Relationship Specialty Start Date End Date Roselyn Cisse DMD [address] [place] [address] PCP - General 06/22/20 documented as of this encounter
== END 2024-08-23 11:47 | disposition home or self-care (01) ==
LOC: HO.PMC 11:13
PROVIDERS: PCP Registered Nurse; Visit Provider Nurse Practitioner Family
DX: M25.551 Pain in right hip (principal); M47.16 Other spondylosis with myelopathy, lumbar region; M47.817 Spondylosis without myelopathy or radiculopathy, lumbosacral region; D17.1 Benign lipomatous neoplasm of skin and subcutaneous tissue of trunk
CPT/HCPCS: 99214

== ENCOUNTER → 2024-08-23 11:12 | Outpatient (BNVA) | payer MEDICAID, SELFPAY | PROVIDERS: PCP Registered Nurse; Visit Provider Nurse Practitioner Family | DX: M47.16 Other spondylosis with myelopathy, lumbar region (principal); M25.551 Pain in right hip; M47.817 Spondylosis without myelopathy or radiculopathy, lumbosacral region; D17.1 Benign lipomatous neoplasm of skin and subcutaneous tissue of trunk | CPT/HCPCS: 99212 ==

== ENCOUNTER 2024-11-03 15:42 | Outpatient (AMB) | payer MEDICAID, SELFPAY ==
--- OUTSIDE RECORDS SUMMARY | 2024-11-03 15:45 | XMS_ITS | Encounter Summary ---
Demographics Address [address] [facility] [address] [place] [address] Home Phone Mobile Phone Email Address Preferred Language Saudi Arabian; Castilian Marital Status Single Mormon Affiliation Unknown Race Black or Ladonna rican Ethnic Group or Author Organization [facility] Address [address] [place] [address] Care Team Providers Care Regulatory Manager Name Role Phone Roselyn Cisse DMD Primary Care Provider [phone] Encounter Details Date Type Department Care Team ([facility] st Contact Info) Description 11/19/2022 Dental Interim Note [facility] [address] [place] [phone] Jabari Robertson [address] [place], [place] [phone] Social History Tobacco Use Types Packs/Day Years [...] encounter Miscellaneous Notes * Patient Instructions - Jaabri Robertson - 11/19/2022 9:41 AM EDT If you are not able to keep your appointment please call [phone] hours before your appointment to cancel or reschedule. documented in this encounter Plan of Treatment Not on file documented as of this encounter Visit Diagnoses Not on filedocumented in this encounter Care Teams Regulatory Manager Relationship Specialty Start Date End Date Roselyn Cisse DMD [address] [place] [address] PCP - General 06/22/20 documented as of this encounter
--- OUTSIDE RECORDS SUMMARY | 2024-11-03 15:45 | XMS_ITS | Clinical Summary ---
Author Organization [address] [facility] Address [address] [place] [address] Phone Care Team Providers Care Radiotelephone Technical Operator Name Role Phone Manny Mejias MD Primary Care Provider [phone] Allergies No known active allergies Medications ammonium [...] Name Administration Dates Next Due Hepatitis B (Gqbwmye-X-Fgiqd , Recombivax HB-Adult) 19yo and older 03/01/2008 Influenza trivalent, 0.5mL, preservative free (Fluarix; FluLaval; Fluzone) ages 6mo and older (Afluria) 3 years and older 03/01/2008 PPD Test 03/01/2008 Tdap Tetanus diptheria acell ular pertussis (Boostrix; Adacel) 7yo and older 03/01/2008 Surgical History Surgery Date Site/Laterality Comments OTHER SURGICAL HISTORY PROCEDURE: ---- OTHER ----; COMMENT: Colon surgery at [facility], ?resection, for ?infection COLONOSCOPY 07/10/08 PROCEDURE: [place] COLONOSCOPY STOMA DX INCLUDING COLLJ SPEC SPX; [...] 03/22/2022 Cholesterol Screening (Lipid Panel) 03/22/2022 05/04/2015 Social Influencers of Health Screening 03/22/2022 Falls Risk Assessment 2022 COVID-19 Vaccine ( - 2023-2 5 season) 2023 Depression Screening 04/13/2024 Colorectal Cancer Screening: Colonoscopy 05/16/2024 05/16/2019 Influenza [...] , Abstracted Anatomical Region Laterality Modality Other [facility] Provider HEALTH MAINTENANCE Final Result * Lipid panel (05/04/2015) Pathologist [facility] LDL/HDL Ratio 3 0 - 4 Triglycerides 149 0 - 150 mg/dL Cholesterol 170 0 - 200 mg/dL HDL 49 >=40 mg/dL LDL Cholesterol 91 0 - 100 mg/dL Blood Venous blood specimen / Unknown [facility] Provider LAB BLOOD ORDERABLES Laura l Result * Hepatitis C Screening (09/02/2012) Pathologist [facility] Hepatitis C Screening Abstracted [facility] Provider HEALTH MAINTENANCE Final Result from Last 3 Months or Most Recently Relevant to Health Maintenance Insurance [place] - [place] Care Teams Radiotelephone Technical Operator Relationship Specialty Start Date End Date Manny Mejias MD [address] [place] [address] PCP - General Internal Medicine 05/08/20
[2024-11-03 15:51] VITALS: BP 128/74; PULSE 96; O2SAT 97; BMI 30.5
--- NOTE | 2024-11-03 15:51 | MHC.PC.OV ---
Vital Signs 11/03/24 15:51 Height 5 ft 2 in Weight 167 lb BMI 30.5 BP 128/74 Blood Pressure Location Lt brachial Position Sitting Pulse 96 Pulse Source Pulse Oximeter Temp Source Temporal Artery Scan Pulse Oximetry (%) 97 Oxygen Delivery Method Room Air Intake Visit Reasons: f/u HTN/ HLD Accompanied by: Spouse Allergies No Known Allergies Allergy (Verified 11/03/24 16:06) Medication List - Last Reconciled 11/03/24 by Javier Malloy PA-C acetaminophen (Tylenol Extra Strength) 1,000 mg (2 x 500 mg) PO QID PRN blood pressure monitor As directed-testing once a day as needed cetirizine 10 mg PO DAILY PRN 90 days diazepam (Valium) 5 mg PO ONCE PRN diclofenac sodium 50 mg PO TID PRN finasteride 5 mg PO DAILY 90 days ibuprofen 800 mg PO Q8H levothyroxine 50 mcg PO DAILY 90 days lidocaine 5% 1 patch topical DAILY 30 days lisinopril 5 mg PO DAILY 90 days naloxone 4 mg/actuation (Narcan) 4 mg intranasal Q2M PRN oxycodone 10 mg PO ONCE PRN pantoprazole 20 mg PO DAILY tizanidine 2 mg PO ONCE PRN 10 days tramadol 50 mg PO Q8H PRN 7 days Tobacco use date assessed: 11/03/24 Fall risk assessment: No Falls in past year Last assessed Fall Risk: 11/03/24 Dental Screening Dental Screen Date: 11/03/24 Did you have a dental visit in the last 12 months?: Yes Did you have a dental problem in the last 6 months where you did not have access to dental care?: No Was dental information given to patient?: No HPI f/u HTN/ HLD HPI Details Patient is a 69 year male here today for a follow-up visit. Patient continues to full-time work at a [employer] Today presrent with his daughter whom help with interpretation. ? Patient has a past medical history significant s/o colectomy ( 2008) chronic lumbar spine painy, elevated PSAs, obesity and hypertension . Concern--> Have noted slightly elevated PSA- has started finasteride recently. Does report having nocturia. We did offer him also tamsulosin to help with complete bladder emptying. The patient is currently on finasteride, which was started when his prostate-specific antigen was noted to be elevated at 4.4 ng/mL, slightly above the normal range of 0 to 4 ng/mL. . Lumbar spine pain: He is followed by pain management here in [place], he is due for lumbar injections though is awaiting a call to set up this appointment. The patient is also under pain management, with a history of using tramadol for pain relief, particularly for leg, back, and neck pain. He has previously tried tizanidine, a muscle relaxant, without significant relief .. . Hypertension: Blood pressure acceptable today in office. Continues on low-dose lisinopril with good effect. .. Hypothyroidism: Continues on levothyroxine 50 mcg. Will recheck TSH to assure normal. Has lost weight since last office visit .. Impaired glucose metabolism: The patient is also noted to have prediabetes with an A1c of 5.9-6.0, indicating a need for lifestyle modifications in diet. He reports consuming carbohydrate-rich foods that may exacerbate his condition. [facility] Medical History Hepatitis C Impaired glucose metabolism Surgical History History of hernia surgery History of cholecystectomy History of colon surgery Social History Housing: House Alcohol intake: former Year quit: 1999 Patient Tobacco Use Status: Never used Tobacco Tobacco use type: Cigarette e-Cigarette/Vaping Use: Never Used Second Hand Smoke Exposure: No service: No Current occupational status: employed Current occupation: [employer] Cognitive needs: No Hearing needs: No Vision needs: Yes (wear glasses) Questionnaire Thrive Questionnaire Date Thrive assessed: 11/03/24 MARS-7 AMB Questionnaire MARS-7 Date MARS - 7 assessed: 11/03/24 Source: Developed by Drs. Collin Rosen, Tenisha Mcconnell, Blade Atkinson and colleagues, with an educational josemanuel from [employer]. Review of Systems Const Denies headache(s) Eyes Denies loss of vision ENT Denies vertigo, Denies dizziness, Denies headache(s) and Denies sore throat Card Denies chest pain, Denies leg edema and Denies lightheadedness Resp Denies cough, Denies hemoptysis and Denies wheezing GI Denies abdominal pain, Denies melena, Denies constipation, Denies diarrhea and Denies vomiting Denies dysuria, Denies urinary frequency and Denies urinary urgency Musc Denies arthralgias, Denies joint swelling, Denies numbness and Denies tingling Neuro Denies Abnormal speech present, Denies behavioral changes, Denies vertigo, Denies dizziness, Denies headache(s), Denies loss of vision, Denies memory loss, Denies numbness and Denies tingling Psych Denies anxiety, Denies behavioral changes, Denies depression, Denies memory loss and Denies panic attacks Chris/Lymph Denies easy bleeding and Denies easy bruising Aller/Immun Denies wheezing Physical exam (Primary Care) Vital Signs: Last Vital Signs Pulse 96 11/03/24 15:51 BP 128/74 11/03/24 15:51 Pulse Ox 97 11/03/24 15:51 Oxygen Delivery Method Room Air 11/03/24 15:51 BMI result Body Mass Index 30.5 Tobacco/Smoking Status: Tobacco use Status Tobacco use date assessed 11/03/24 11/03/24 15:58 Patient Tobacco Use Status Never used Tobacco 11/03/24 15:58 Tobacco use type Cigarette 11/03/24 15:58 e-Cigarette/Vaping Use Never Used 11/03/24 15:58 Thrive Assessment: Date of Thrive Assessment Date Thrive assessed 11/03/24 11/03/24 15:58 Const General: healthy appearing, no acute distress, alert and awake Nutritional Appearance: well nourished Orientation/consciousness: oriented to person, oriented to place and oriented to time [facility] Ears: TM's normal bilaterally General nose exam: Normal nasal mucous membranes and turbinates present Eyes Conjunctivae: conjunctivae normal Sclerae: sclerae normal Pupils: Equal, round and reactive pupils present Neck Neck: Yes no lymphadenopathy and Yes no JVD Thyroid: Thyroid normal Carotids: no bruits Resp Effort & Inspection: normal respiratory effort and not tachypneic Auscultation: no crackles, no rales, no rhonchi and no wheezes Cardio Rate: regular rate Rhythm: regular rhythm Heart sounds: no murmurs and normal S1 and S2 GI Palpation (GI): Soft to palpation, nontender, no hepatomegaly and no splenomegaly Auscultation: normal bowel sounds Skin General skin exam: no rashes or lesions noted and dry skin Neuro General: oriented to person, oriented to place and oriented to time Cranial nerves: Yes Equal, round and reactive pupils present Speech: No Abnormal speech present Gait exam (Neuro): Normal gait present Motor exam (neuro): no tremor noted Extrem Right upper extremity: full ROM Left upper extremity: full ROM Right lower extremity: full ROM; no edema Left lower extremity: full ROM; no edema Psych Mental Status: mental status grossly normal Speech and movement: Normal speech and movement present Affect: normal affect Attitude: cooperative Thought process: Normal thought process present Coding Level of Care Code Est Pt Level 4 (01185) Diagnoses Urge incontinence of urine N39.41 Primary hypertension I10 Hypertension type: primary hypertension Mixed hyperlipidemia E78.2 Hyperlipidemia type: mixed hyperlipidemia Lipoma of back D17.1 Benign prostatic hyperplasia with nocturia N40.1; R35.1 Lower urinary tract symptom presence: symptoms present Lower urinary tract symptom detail: nocturia Lumbar spine pain M54.50 Assessment & Plan Assessment & Plan (1) Urge incontinence of urine: Code(s): N39.41 - Urge incontinence Category: Medical Plan: The plan includes scheduling an ultrasound of the bladder to check for stones or abnormalities and considering a trial of oxybutynin to manage symptoms of urge incontinence. (2) HTN (hypertension): Code(s): I10 - Essential (primary) hypertension Category: Medical Qualifiers: Hypertension type: primary hypertension Qualified Code(s): I10 - Essential (primary) hypertension Plan: Patient's blood pressure today in office acceptable. Will continue his current dose of antihypertensive medication with blood pressure to be below 140/90 (3) HLD (hyperlipidemia): Code(s): E78.5 - Hyperlipidemia, unspecified Category: Medical Qualifiers: Hyperlipidemia type: mixed hyperlipidemia Qualified Code(s): E78.2 - Mixed hyperlipidemia Plan: Has a history of hyperlipidemia. Now controlled with dietary modifications. Will recheck lipid panel to ensure normal total cholesterol and LDL (4) Lipoma of back: Code(s): D17.1 - Benign lipomatous neoplasm of skin and subcutaneous tissue of trunk Category: Medical Plan: Has followed up with general surgeon and will be due for lipoma removal in near future. (5) BPH (benign prostatic hyperplasia): Code(s): N40.0 - Benign prostatic hyperplasia without lower urinary tract symptoms Category: Medical Qualifiers: Lower urinary tract symptom presence: symptoms present Lower urinary tract symptom detail: nocturia Qualified Code(s): N40.1 - Benign prostatic hyperplasia with lower urinary tract symptoms; R35.1 - Nocturia Plan: Have noted elevated PSA. He does admit to some decreased urinary output and nocturia. We have started finasteride and will continue to follow PSA. We did discuss perhaps trying tamsulosin though patient would like to hold off on this medication for now. (6) Lumbar spine pain: Code(s): M54.50 - Low back pain, unspecified Category: Medical Plan: The patient will continue using tramadol for pain relief as needed, with a new prescription for methocarbamol to address muscle pain. Orders: Orders US bladder 11/03/24 N39.41 - Urge incontinence Prostate Specific Antigen Scr 11/05/24 N39.41 - Urge incontinence, Z12.5 - Encounter for screening for malignant neoplasm of prostate Complete Blood Count no Diff 11/05/24 I10 - Essential (primary) hypertension Comprehensive [place]. Panel Fast 11/05/24 I10 - Essential (primary) hypertension TSH reflex Free T4 11/05/24 R79.89 - Other specified abnormal findings of blood chemistry Hemoglobin A1c 11/05/24 R73.09 - Other abnormal glucose Medications: New methocarbamol 750 mg PO TID 30 tabs 0RF 10 days M43.17 - Spondylolisthesis, lumbosacral region Refilled cetirizine 10 mg PO DAILY PRN 90 tabs 1RF allergy symptoms 90 days L29.9 - Pruritus, unspecified tramadol 50 mg PO Q8H PRN 21 tabs 0RF pain 7 days M43.17 - Spondylolisthesis, lumbosacral region, M47.817 - Spondylosis without myelopathy or radiculopathy, lumbosacral region, 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 Avoid Ibuprofen while taking this. 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
== END 2024-11-03 16:32 | disposition home or self-care (01) ==
LOC: HO.HMCH 15:43
PROVIDERS: PCP Registered Nurse; Visit Provider Physician Assistant
DX: N39.41 Urge incontinence (principal); I10 Essential (primary) hypertension; E78.2 Mixed hyperlipidemia; D17.1 Benign lipomatous neoplasm of skin and subcutaneous tissue of trunk; N40.1 Benign prostatic hyperplasia with lower urinary tract symptoms; R35.1 Nocturia; M54.50 Low back pain, unspecified

== ENCOUNTER → 2024-11-03 15:42 | Outpatient (BNVA) | payer MEDICAID, SELFPAY | PROVIDERS: PCP Registered Nurse; Visit Provider Physician Assistant | DX: N39.41 Urge incontinence (principal); I10 Essential (primary) hypertension; E78.2 Mixed hyperlipidemia; D17.1 Benign lipomatous neoplasm of skin and subcutaneous tissue of trunk; N40.1 Benign prostatic hyperplasia with lower urinary tract symptoms; R35.1 Nocturia; M54.50 Low back pain, unspecified; E03.9 Hypothyroidism, unspecified; Z79.899 Other long term (current) drug therapy | CPT/HCPCS: 99212 ==

== ENCOUNTER 2024-11-05 10:08 | Outpatient (REF) | payer MEDICAID, SELFPAY ==
--- OUTSIDE RECORDS SUMMARY | 2024-11-05 10:10 | XMS_ITS | Clinical Summary ---
Author Organization [address] [facility] Address [address] [place] [address] Phone Care Team Providers Care First Responder Name Role Phone Manny Mejias MD Primary Care Provider [phone] Allergies No known active allergies Medications ammonium [...] Name Administration Dates Next Due Hepatitis B (Nlcdnnt-R-Raaur , Recombivax HB-Adult) 19yo and older 03/01/2008 Influenza trivalent, 0.5mL, preservative free (Fluarix; FluLaval; Fluzone) ages 6mo and older (Afluria) 3 years and older 03/01/2008 PPD Test 03/01/2008 Tdap Tetanus diptheria acell ular pertussis (Boostrix; Adacel) 7yo and older 03/01/2008 Surgical History Surgery Date Site/Laterality Comments OTHER SURGICAL HISTORY PROCEDURE: ---- OTHER ----; COMMENT: Colon surgery at [facility], ?resection, for ?infection COLONOSCOPY 07/10/08 PROCEDURE: MO COLONOSCOPY STOMA DX INCLUDING COLLJ SPEC SPX; [...] , Abstracted Anatomical Region Laterality Modality Other [facility] Provider HEALTH MAINTENANCE Final Result * Lipid panel (05/04/2015) Pathologist [facility] LDL/HDL Ratio 3 0 - 4 Triglycerides 149 0 - 150 mg/dL Cholesterol 170 0 - 200 mg/dL HDL 49 >=40 mg/dL LDL Cholesterol 91 0 - 100 mg/dL Blood Venous blood specimen / Unknown [facility] Provider LAB BLOOD ORDERABLES Laura l Result * Hepatitis C Screening (09/02/2012) Pathologist [facility] Hepatitis C Screening Abstracted [facility] Provider HEALTH MAINTENANCE Final Result from Last 3 Months or Most Recently Relevant to Health Maintenance Insurance MEDICAID - [place] Care Teams First Responder Relationship Specialty Start Date End Date Manny Mejias MD [address] [place] [address] PCP - General Internal Medicine 05/08/20
[2024-11-05 11:45] LABS: Hematocrit 44.1 % (42.0-52.0); Hemoglobin 14.2 g/dl (14.0-18.0); Mean Corpuscular HGB Conc 32.2 g/dl (31.0-36.0); Mean Corpuscular Hemoglobin 28.9 pg (27.0-33.0); Mean Corpuscular Volume 89.6 fL (80.0-98.0); NRBC Abs Auto 0.000 X10*3/uL (0.0-0.012); NRBC Pct Auto 0.0 /100WBC (0.0-0.2); Platelet Count 250 X10*3/uL (160-400); Red Blood Count 4.92 X10*6/uL (4.60-5.80); White Blood Count 7.1 X10*3/uL (4.8-10.8)
[2024-11-05 11:58] LABS: Hemoglobin A1C 164.4455 umol/L; Total Hemoglobin (HGBA1C) 3759.6881 umol/L
[2024-11-05 12:15] LABS: Alanine Aminotransferase 47 U/L (0-40); Albumin Level 4.2 g/dL (3.5-5.0); Alkaline Phosphatase 148 U/L (39-117); Anion Gap 12 (12-20); Aspartate Amino Transferase 34 U/L (5-37); Blood Urea Nitrogen 18 mg/dL (9-16); Calcium 8.7 mg/dL (8.4-10.2); Carbon Dioxide 21 mmol/L (22-29); Chloride 112 mmol/L (96-108); Cholesterol 165 mg/dL (<200); Estimated Glomerular Filt Rate > 60; HDL Cholesterol 54 mg/dL (>40); Potassium 4.0 mmol/L (3.3-5.1); Sodium 141 mmol/L (135-145); Total Protein 7.7 g/dL (6.5-8.0); Triglycerides 113 mg/dL (<150)
== END 2024-11-05 10:09 | disposition home or self-care (01) ==
LOC: HO.LAB 10:08
PROVIDERS: PCP Physician Assistant; Visit Provider Physician Assistant
DX: Z12.5 Encounter for screening for malignant neoplasm of prostate (principal); I10 Essential (primary) hypertension; N39.41 Urge incontinence; E78.2 Mixed hyperlipidemia; R73.09 Other abnormal glucose; R94.6 Abnormal results of thyroid function studies
CPT/HCPCS: 36415; 80053; 80061; 83036; 84153; 84443; 85027

== ENCOUNTER 2024-11-15 07:22 | Day surgery (SDC) | payer MEDICAID, SELFPAY ==
--- OUTSIDE RECORDS SUMMARY | 2024-10-20 12:03 | XMS_ITS | Encounter Summary ---
Demographics Address [address] [facility] [address] [place] [address] Home Phone Mobile Phone Email Address Preferred Language Macedonian; Castilian Marital Status Single Judaism Affiliation Unknown Race Black or Ladonna rican Ethnic Group or Author Organization [facility] Address [address] [place] [address] Care Team Providers Care Signing Teacher Name Role Phone Roselyn Cisse DMD Primary Care Provider [phone] Encounter Details Date Type Department Care Team ([facility] st Contact Info) Description 11/19/2022 Dental Interim Note [facility] [address] [place] [phone] Jabari Robertson [address] [place], [place] [phone] Social History Tobacco Use Types Packs/Day Years [...] on filedocumented in this encounter Care Teams Signing Teacher Relationship Specialty Start Date End Date Roselyn Cisse DMD [address] [place] [address] PCP - General 06/22/20 documented as of this encounter
--- OUTSIDE RECORDS SUMMARY | 2024-10-20 12:03 | XMS_ITS | Clinical Summary ---
Author Organization [address] [facility] Address [address] [place] [address] Phone Care Team Providers Care Outside Cutter Name Role Phone Manny Mejias MD Primary Care Provider [phone] Allergies No known active allergies Medications ammonium [...] Name Administration Dates Next Due Hepatitis B (Sdnedfi-I-Fknrq , Recombivax HB-Adult) 19yo and older 03/01/2008 [...] Hospital, ?resection, for ?infection COLONOSCOPY 07/10/08 PROCEDURE: SD COLONOSCOPY STOMA DX INCLUDING COLLJ SPEC SPX; [...] 3 - 19+ 3-dose series) 03/29/2008 03/01/2008 RSV Immunization Adult Patie nts (1 - Risk 60-74 years 1-dose series) 2017 DTaP,Tdap,and Td Vaccines (2 - Td or Tdap) 03/01/2018 03/01/2008 Abdominal Aortic Aneurysm (A AA) Screen 03/22/2022 Cholesterol Screening (Lipid Panel) 03/22/2022 05/04/2015 Depression Screening 03/22/2022 Social Influencers of Health Screening 03/22/2022 Falls Risk Assessment 2022 COVID-19 Vaccine ( - 2023-2 5 season) 2023 Colorectal Cancer Screening: Colonoscopy 05/16/2024 05/16/2019 Influenza Vaccine (#1) 2024 03/01/2008 Hepatitis C Screening Completed 09/02/2012 HIB Vaccines [...] , Abstracted Anatomical Region Laterality Modality Other [facility] Provider HEALTH MAINTENANCE Final Result * Lipid panel (05/04/2015) Pathologist [facility] LDL/HDL Ratio 3 0 - 4 Triglycerides 149 0 - 150 mg/dL Cholesterol 170 0 - 200 mg/dL HDL 49 >=40 mg/dL LDL Cholesterol 91 0 - 100 mg/dL Blood Venous blood specimen / Unknown [facility] Provider LAB BLOOD ORDERABLES Laura l Result * Hepatitis C Screening (09/02/2012) Pathologist [facility] Hepatitis C Screening Abstracted [facility] Provider HEALTH MAINTENANCE Final Result from Last 3 Months or Most Recently Relevant to Health Maintenance Insurance [place] - [place] Care Teams Outside Cutter Relationship Specialty Start Date End Date Manny Mejias MD [address] [place] [address] PCP - General Internal Medicine 05/08/20
[2024-11-11 14:14] VITALS: BMI 29.8
--- NOTE | 2024-11-14 10:19 | HO.ANESPROP2 ---
Documented by User: Shaunna Kessler NP 11/14/24 10:21 HPI - Anesthesia Eval Consult details Narrative: 69yo M for Excision of Large Lipoma on Back PMFSH Active Problems Active Problems: All Active Problems Urge incontinence of urine (Acute) Right hip pain (Acute) BPH (benign prostatic hyperplasia) (Acute) Lipoma of back (Acute) Subcutaneous cyst (Acute) HLD (hyperlipidemia) (Acute) Memory impairment (Acute) Rectal pain (Acute) Lumbosacral spondylosis (Acute) Sacralization of lumbar vertebra (Acute) Spondylolisthesis, lumbosacral region (Acute) HTN (hypertension) (Acute) RUQ abdominal pain (Acute) Anemia (Acute) Pruritus (Acute) Balance problem (Acute) Seasonal allergies (Acute) Elevated TSH (Acute) Lumbar spine pain (Acute) Annual physical exam (Acute) Olinda onychomycosis (Acute) Callus of foot (Acute) Screening for diabetes mellitus (DM) (Acute) Screening for hypercholesterolemia (Acute) Screening for hypothyroidism (Acute) Degenerative joint disease (DJD) of lumbar spine (Acute) H/O TB (tuberculosis) (Acute) Impaired glucose metabolism (Acute) Past Medical History Medical History Lumbosacral spondylosis HTN (hypertension) HLD (hyperlipidemia) BPH (benign prostatic hyperplasia) Hepatitis C Impaired glucose metabolism Surgical History Surgical History History of hernia surgery History of cholecystectomy History of colon surgery Social History Social History Housing: House Alcohol intake: former Year quit: 1999 Patient Tobacco Use Status: Never used Tobacco Tobacco use type: Cigarette e-Cigarette/Vaping Use: Never Used Second Hand Smoke Exposure: No Use of substances other than those prescribed or required for medical reasons: No Are you DNR?: No Advance Directives: No Advance Directives Information Provided: Yes service: No Current occupational status: employed Current occupation: [employer] Cognitive needs: No Hearing needs: No Vision needs: Yes (wear glasses) Meds Allergies Allergy/AdvReac Type Severity Reaction Status Date / Time No Known Allergies Allergy Verified 11/15/24 07:45 Exam Height,Weight and Vital Signs: Height 5 ft 2 in Weight 73.936 kg Pertinent Lab Results Pertinent Lab Results: Laboratory Tests 11/05/24 10:25 WBC 7.1 Hgb 14.2 Hct 44.1 Plt Count 250 Sodium 141 Potassium 4.0 Chloride 112 H Carbon Dioxide 21 L BUN 18 H Creatinine 0.51 Assessment and Plan Assessment Anesthesia Assessment: Chart Reviewed Documented by User: Emy Guerrero MD 11/15/24 08:14 PMFSH Past Medical History Medical History Lumbosacral spondylosis HTN (hypertension) HLD (hyperlipidemia) BPH (benign prostatic hyperplasia) Hepatitis C Impaired glucose metabolism Family History Family history of problems with anesthesia: No Surgical History Surgical History History of hernia surgery History of cholecystectomy History of colon surgery History of Problems with Anesthesia: No Social History Social History Housing: House Alcohol intake: former Year quit: 1999 Patient Tobacco Use Status: Never used Tobacco Tobacco use type: Cigarette e-Cigarette/Vaping Use: Never Used Second Hand Smoke Exposure: No Use of substances other than those prescribed or required for medical reasons: No Are you DNR?: No Advance Directives: No Advance Directives Information Provided: Yes service: No Current occupational status: employed Current occupation: [employer] Cognitive needs: No Hearing needs: No Vision needs: Yes (wear glasses) Meds Allergies Allergy/AdvReac Type Severity Reaction Status Date / Time No Known Allergies Allergy Verified 11/15/24 07:45 Exam Airway Mallampati Class: II TM Dist: >3cm Neck ROM: Limited Heart: rrr Lungs: cta Assessment and Plan Assessment Anesthesia Assessment: Anesthesia Plan Discussed Final Anesthetic Review Family History of Problems with Anesthesia: No History of Problems with Anesthesia: No NPO: Yes ASA Class: II Final Preanesthetic Review: No Changes in Pt Med Stat, Meds/Allgs Chart Reviewed, Consent Obtained/Reviewed and Anes Risks/Benef Reviewed Patient Risk: Low Procedure Risk: Low Anesthetic Plan Anesthetic Plan: GA, MAC: and Agree w/ Assess. and Plan Disposition: Standard PACU
[2024-11-15] VITALS (7 sets, daily range): BP systolic 132–168; BP diastolic 74–83; PULSE 61–73; RESP 15–21; TEMP 36.1–36.5; O2SAT 95–99; BMI 30.6
[2024-11-15] MEDS: Lactated Ringers 1,000 ML 100 ML IVCONT (08:05)
--- NOTE | 2024-11-15 08:08 | MHC.SHP ---
Pre-Procedural Eval Section A - 24 Hr Update-Section A only Date of Service: 11/15/24 Section B - Complete if H&P > 30 days Chief Complaint: Benign lipomatous neoplasm of skin and subcut Details of Present Illness: He has a large lipoma on the upper back, for excision in the OR today Relevant Family History (Specify if Yes): No Relevant Social History: None Present Medications: see Short Stay Collaborative assessment Medical History: Significant History (BPH, hyperlipidemia, memory impairment, back pain, impaired glucose metabolism) Allergies: Allergies Allergy/AdvReac Type Severity Reaction Status Date / Time No Known Allergies Allergy Verified 11/15/24 07:45 Review of Systems Sugical H&P ROS: Negative: Constitution, Cardiovascular and Respiratory Exam Surgical H&P Exam: Normal: Heart, Normal: Lungs and Normal: Abdomen Exam Comment: Large lipoma on the upper back to the right of the midline, about 13 cm in diameter Plan Diagnosis/Plan: Unchanged I have reviewed the history and physical and performed a pertinent physical examination on my patient. No changes have occurred unless specified. Time Spent With Patient Time: Total time managing care of this patient today ____ minutes.
--- NOTE | 2024-11-15 09:37 | W.PM.OPN ---
Operative Note Operative Note Date of Service: 11/15/24 Narrative: Preop diagnosis: Large lipoma from the upper back Postop diagnosis: Large lipoma from the upper back, 14 x 10 cm in dimension Procedure: Excision of large lipoma from the upper back Surgeon: Hakeem Ross MD assistant manager airside operations: CHRISTINE Vanegas The patient has a 69-year-old male with a large lipoma on the upper back. He wanted this removed because of continuing increased in size and discomfort. He understood the technique of excision under anesthesia. He was aware of the risks, benefits, and alternatives. He was brought to the operating room. He was placed in prone position under general anesthesia via endotracheal tube. The lipoma was seen on the upper back to the right of the midline. This area was prepped and draped in the usual sterile fashion. A surgical time-out was done. The patient received cefazolin 2 g IV preoperatively I infiltrated the planned line of incision with lidocaine 1%. I made a transverse incision in the skin overlying the lipoma with a blade 15. This carried down with electrocautery through the full-thickness of the skin and thick subcutaneous fat. I actually I was able to visualize the lipoma. I sharply dissected the lipoma off the rest of the deep subcutaneous layer using Metzenbaum scissors and electrocautery. I circumferentially dissected the lipoma and freed it up from the surrounding tissue. This took an extended period time in view of the size of the lipoma. The lipomas eventually delivered. This measured about 14 x 10 cm. This was sent as a specimen I copiously irrigated the excision site. We observed for hemostasis. Once hemostasis was confirmed, I reapposed the thick subcutaneous tissue with multiple Polysorb 3-0 simple interrupted sutures. Skin closure was achieved with nylon 3-0 simple interrupted sutures. Area was then infiltrated with Marcaine 0.5% for postop analgesia. Thick dressings were applied. The procedure was completed. The patient tolerated the procedure well. There were no immediate complications. Initial and final counts of sponges and instruments were correct. Estimated blood loss was less than 25 cc . The patient is extubated without difficulty and transferred to the recovery room with stable vital signs.
--- NOTE | 2024-11-15 11:54 | PC.NURSE ---
PATIENT WAS GIVEN AN UBER RIDE HOME.
== END 2024-11-15 11:58 | disposition home or self-care (01) ==
PROVIDERS: PCP Physician Assistant; Visit Provider Surgery
PROC: (CPT 21931; principal; 2024-11-15 09:50)
DX: D17.1 Benign lipomatous neoplasm of skin and subcutaneous tissue of trunk (principal); B19.20 Unspecified viral hepatitis C without hepatic coma; R73.02 Impaired glucose tolerance (oral); I10 Essential (primary) hypertension; E78.5 Hyperlipidemia, unspecified; N40.0 Benign prostatic hyperplasia without lower urinary tract symptoms; Z79.899 Other long term (current) drug therapy; Z98.890 Other specified postprocedural states
CPT/HCPCS: 21931; 88304; J0131; J0330; J0690; J1100; J1171; J2003; J2405; J2704; J2795; J3010

== ENCOUNTER → 2024-11-15 07:22 | Outpatient (BNV) | payer MEDICAID, SELFPAY | PROVIDERS: PCP Physician Assistant; Visit Provider Surgery | DX: D17.1 Benign lipomatous neoplasm of skin and subcutaneous tissue of trunk (principal) | CPT/HCPCS: 21931 ==

== ENCOUNTER 2024-11-22 15:00 | Outpatient (REF) | payer MEDICAID, SELFPAY ==
--- NOTE | ~2024-11-22 | US_ITS ---
EXAMINATION: US BLADDER HISTORY: N39.41 - Urge incontinence COMPARISON: There are no prior studies available for comparison. FINDINGS: Sonographic examination of the urinary bladder was performed before and after voiding. Before voiding, the urinary bladder measured 7.7 x 3.0 x 7.3, for an estimated volume of 88 mL. After voiding, the urinary bladder measured 4.5 x 2.4 x 4.2, for an estimated volume of 24 mL. No intrinsic bladder abnormality is identified, although evaluation is limited by underdistention. Bilateral ureteral jets are identified. The prostate measures 4.0 x 3.4 x 3.7 cm, for an estimated volume of 26 mL. US/US bladder IMPRESSION: 1. Limited evaluation of the bladder due to underdistention. No gross abnormality is seen. 2. Post void bladder residual of 24 mL. 3. Prostate volume of 26 mL. Electronically signed by: Collin Galvez MD 11/23/2024 07:00 AM EDT
--- OUTSIDE RECORDS SUMMARY | 2024-11-22 15:50 | XMS_ITS | Encounter Summary ---
Demographics Address [address] [place] [address] Home Phone Mobile Phone Email Address Preferred Language Swedish; Castilian Marital Status Single Confucianism Affiliation Unknown Race Black or Ladonna rican Ethnic Group or Author Organization [facility] Address [address] [place] [address] Care Team Providers Care Business Development Specialist Name Role Phone Roselyn Cisse DMD Primary Care Provider [phone] Encounter Details Date Type Department Care Team ([facility] st Contact Info) Description 11/19/2022 Dental Interim Note [facility] [address] [place] [id number] Jabari Robertson [address] [place], [place] [id number] Social History Tobacco Use Types Packs/Day Years [...] on filedocumented in this encounter Care Teams Business Development Specialist Relationship Specialty Start Date End Date Roselyn Cisse DMD [address] [place] [address] PCP - General 06/22/20 documented as of this encounter
--- OUTSIDE RECORDS SUMMARY | 2024-11-22 15:50 | XMS_ITS | Clinical Summary ---
Author Organization [address] [facility] Address [address] [place] [address] Phone Care Team Providers Care High Heel Builder Name Role Phone Manny Meijas MD Primary Care Provider [phone] Allergies No known active allergies Medications ammonium [...] Name Administration Dates Next Due Hepatitis B (Jrpbkns-O-Gbmld , Recombivax HB-Adult) 19yo and older 03/01/2008 Influenza trivalent, 0.5mL, preservative free (Fluarix; FluLaval; Fluzone) ages 6mo and older (Afluria) 3 years and older 03/01/2008 PPD Test 03/01/2008 Tdap Tetanus diptheria acell ular pertussis (Boostrix; Adacel) 7yo and older 03/01/2008 Surgical History Surgery Date Site/Laterality Comments OTHER SURGICAL HISTORY PROCEDURE: ---- OTHER ----; COMMENT: Colon surgery at [facility], ?resection, for ?infection COLONOSCOPY 07/10/08 PROCEDURE: [place] COLONOSCOPY STOMA DX INCLUDING COLLJ SPEC SPX; [...] , Abstracted Anatomical Region Laterality Modality Other [facility] Provider HEALTH MAINTENANCE Final Result * Lipid panel (05/04/2015) Pathologist [facility] LDL/HDL Ratio 3 0 - 4 Triglycerides 149 0 - 150 mg/dL Cholesterol 170 0 - 200 mg/dL HDL 49 >=40 mg/dL LDL Cholesterol 91 0 - 100 mg/dL Blood Venous blood specimen / Unknown [facility] Provider LAB BLOOD ORDERABLES Laura l Result * Hepatitis C Screening (09/02/2012) Pathologist [facility] Hepatitis C Screening Abstracted [facility] Provider HEALTH MAINTENANCE Final Result from Last 3 Months or Most Recently Relevant to Health Maintenance Insurance [place]ICAID - [place] Care Teams High Heel Builder Relationship Specialty Start Date End Date Manny Mejias MD [address] [place] [address] PCP - General Internal Medicine 05/08/20
== END 2024-11-22 15:01 | disposition home or self-care (01) ==
LOC: HO.US 15:00
PROVIDERS: PCP Physician Assistant; Visit Provider Physician Assistant
DX: N39.41 Urge incontinence (principal)
CPT/HCPCS: 76857

== ENCOUNTER → 2024-11-22 15:04 | Outpatient (BNV) | payer MEDICAID, SELFPAY | PROVIDERS: PCP Physician Assistant; Visit Provider Radiology Diagnostic Radiology | DX: N39.41 Urge incontinence (principal) | CPT/HCPCS: 76857 ==

== ENCOUNTER 2024-11-28 09:11 | Outpatient (AMB) | payer MEDICAID, SELFPAY ==
--- NOTE | 2024-11-28 09:12 | MHC.OFFVIS ---
Intake Visit Reasons: S/P exc. Lg. lipoma from the back Intake Note: Patient here s/p lipoma excision from back. Patient c/o: WLE: 11-15-2024 Allergies No Known Allergies Allergy (Verified 11/15/24 07:45) HPI HPI S/P exc. Lg. lipoma from the back: Details: He underwent excision of a large lipoma of the back under anesthesia last 11/15/2024. He tolerated procedure well. He currently denies significant complaints. [facility] Medical History Lumbosacral spondylosis HTN (hypertension) HLD (hyperlipidemia) BPH (benign prostatic hyperplasia) Hepatitis C Impaired glucose metabolism Surgical History History of hernia surgery History of cholecystectomy History of colon surgery Social History Housing: [place] Alcohol intake: former Year quit: 1999 Patient Tobacco Use Status: Never used Tobacco Tobacco use type: Cigarette e-Cigarette/Vaping Use: Never Used Second Hand Smoke Exposure: No service: No Current occupational status: employed Current occupation: [employer] Cognitive needs: No Hearing needs: No Vision needs: Yes (wear glasses) Review of Systems Const Denies chills and Denies fever(s) Physical Exam Const General: comfortable and no acute distress Resp Effort & Inspection: normal respiratory effort Back/Spine/Pelvis Other: Excision site appears to be well healed, not infected, sutures in place Assessment & Plan Assessment & Plan (1) Lipoma of back: Code(s): D17.1 - Benign lipomatous neoplasm of skin and subcutaneous tissue of trunk Category: Medical Plan: Status post excision. His incision is well healed. I removed all his sutures. The wound edges remained well apposed His path report confirms a lipoma. He can follow up on a p.r.n. basis. He asked for a few more tablets of tramadol. Coding Level of Care Code Global (70849) Diagnoses Lipoma of back D17.1
--- OUTSIDE RECORDS SUMMARY | 2024-11-28 09:40 | XMS_ITS | Encounter Summary ---
Demographics Address [address] [place] [address] Home Phone Mobile Phone Email Address Preferred Language Luxembourgish; Castilian Marital Status Single Islam Affiliation Unknown Race Black or Ladonna rican Ethnic Group or Author Organization [facility] Address [address] [place] [address] Care Team Providers Care Tank Inspector Name Role Phone Roselyn Cisse DMD Primary Care Provider [phone] Encounter Details Date Type Department Care Team ([facility] st Contact Info) Description 11/19/2022 Dental Interim Note [facility] [address] [place] [id number] Jabari Robertson [address] [place], [place] [id number] Social History Tobacco Use Types Packs/Day Years [...] on filedocumented in this encounter Care Teams Tank Inspector Relationship Specialty Start Date End Date Roselyn Cisse DMD [address] [place] [address] PCP - General 06/22/20 documented as of this encounter
--- OUTSIDE RECORDS SUMMARY | 2024-11-28 09:40 | XMS_ITS | Clinical Summary ---
Author Organization [facility] Address [address] [place] [address] Phone Care Team Providers Care Chemist Pharmaceutical Name Role Phone Manny Mejias MD Primary Care Provider [phone] Allergies No known active allergies Medications ammonium [...] Name Administration Dates Next Due Hepatitis B (Dvkzoaq-H-Khjpu , Recombivax HB-Adult) 19yo and older 03/01/2008 Influenza trivalent, 0.5mL, preservative free (Fluarix; FluLaval; Fluzone) ages 6mo and older (Afluria) 3 years and older 03/01/2008 PPD Test 03/01/2008 Tdap Tetanus diptheria acell ular pertussis (Boostrix; Adacel) 7yo and older 03/01/2008 Surgical History Surgery Date Site/Laterality Comments OTHER SURGICAL HISTORY PROCEDURE: ---- OTHER ----; COMMENT: Colon surgery at [facility], ?resection, for ?infection COLONOSCOPY 07/10/08 PROCEDURE: [facility] COLONOSCOPY STOMA DX INCLUDING COLLJ SPEC SPX; [...] , Abstracted Anatomical Region Laterality Modality Other [facility] Provider HEALTH MAINTENANCE Final Result * Lipid panel (05/04/2015) Pathologist [facility] LDL/HDL Ratio 3 0 - 4 Triglycerides 149 0 - 150 mg/dL Cholesterol 170 0 - 200 mg/dL HDL 49 >=40 mg/dL LDL Cholesterol 91 0 - 100 mg/dL Blood Venous blood specimen / Unknown [facility] Provider LAB BLOOD ORDERABLES Laura l Result * Hepatitis C Screening (09/02/2012) Pathologist [facility] Hepatitis C Screening Abstracted [facility] Provider HEALTH MAINTENANCE Final Result from Last 3 Months or Most Recently Relevant to Health Maintenance Insurance MEDICAID - [place] Care Teams Chemist Pharmaceutical Relationship Specialty Start Date End Date Manny Mejias MD [address] [place] [address] PCP - General Internal Medicine 05/08/20
== END 2024-11-28 09:28 | disposition home or self-care (01) ==
LOC: HO.HGS 09:11
PROVIDERS: PCP Registered Nurse; Visit Provider Surgery
DX: D17.1 Benign lipomatous neoplasm of skin and subcutaneous tissue of trunk (principal)
CPT/HCPCS: 99024

== ENCOUNTER → 2024-11-28 09:11 | Outpatient (BNVA) | payer MEDICAID, SELFPAY | PROVIDERS: PCP Registered Nurse; Visit Provider Surgery | DX: D17.1 Benign lipomatous neoplasm of skin and subcutaneous tissue of trunk (principal) | CPT/HCPCS: 99212 ==